=== PATIENT | female | born 1945 | race Caucasian/White ===

== ENCOUNTER 2017-06-23 | Inpatient (IN) | payer MEDICARE, BC, SELFPAY | END 2017-06-25 18:39 | disposition home or self-care (01) | DRG 375 | PROVIDERS: Admitting Provider Family Medicine; Family Provider Family Medicine; PCP Family Medicine; Visit Provider Family Medicine | DX: C18.7 Malignant neoplasm of sigmoid colon (principal); C78.02 Secondary malignant neoplasm of left lung; C78.7 Secondary malignant neoplasm of liver and intrahepatic bile duct; C78.01 Secondary malignant neoplasm of right lung; E11.9 Type 2 diabetes mellitus without complications; E87.6 Hypokalemia; D64.9 Anemia, unspecified | CPT/HCPCS: 36415; 71020; 74177; 80048; 80053; 82150; 82272; 82378; 82607; 82746; 83690; 85014; 85018; 85025; 86850; 86900; 86901; 86920; 86922; G0328; P9016; Q9967 ==

== ENCOUNTER → 2017-06-30 | Outpatient (POV) | payer MEDICARE, BC, SELFPAY | PROVIDERS: Family Provider Family Medicine; PCP Family Medicine; Visit Provider Internal Medicine | DX: C18.7 Malignant neoplasm of sigmoid colon (principal); C78.7 Secondary malignant neoplasm of liver and intrahepatic bile duct; C78.02 Secondary malignant neoplasm of left lung; C78.01 Secondary malignant neoplasm of right lung | CPT/HCPCS: 99204; 36415; 85025 ==

== ENCOUNTER → 2017-07-06 08:56 | Outpatient (CLI) | payer MEDICARE, BC, SELFPAY ==
[2017-07-06 09:21] LABS: Blood Urea Nitrogen 17 mg/dL (7-18); Creatinine,Serum 1.11 mg/dL (0.55-1.02); Estimated Glomerular Filt Rate 49 ml/min (>60); GFR (African American) 59 ML/MIN (>60)
--- NOTE | 2017-07-06 09:23 | CT_ITS ---
CT CHEST W CON CLINICAL INDICATION: Pulmonary metastasis, lung mass on chest x-ray, cancer of the colon ITS.REASON: COLON MASS PULMONARY METS LIVER METS ORDERING PHYSICIAN: Eduarda Palomo PATIENT AGE: 72 years TECHNIQUE: Axial images obtained with 75 mL's of Isovue-370. Sagittal and coronal reformatted images also generated and reviewed COMPARISON: Radiograph of 06/23/2017 FINDINGS: Right lobe of the thyroid gland is slightly enlarged and has heterogeneous density. There are enlarged mediastinal lymph nodes. Adenopathy in the right anterior paratracheal region measures up to 5.5 cm cephalad to caudad and 3.5 cm transverse and 3.2 cm AP. There is subcarinal adenopathy measuring up to 4.2 x 3.3 cm. Stippled calcifications are present within these enlarged nodes. There is right hilar adenopathy measuring up to 2.2 cm. There are multiple bilateral pulmonary masses/nodules with the largest mass in the right upper lobe posteriorly measuring 7.5 cm transverse, 5 cm AP, and 5.3 cm cephalad to caudad. There are innumerable bilateral pulmonary nodules in both upper and lower lobes. The largest nodule on the left is in the upper lobe posteriorly measuring up to 2.7 x 2.3 cm. No central obstructing endobronchial lesions are evident. No effusions. There is mild centrilobular emphysematous change. Coronary artery calcifications are noted.. There is compression upon the superior pulmonary vein on the right from hilar adenopathy Upper abdominal images demonstrates several masses within the right lobe of the liver largest of which measures 8.9 x 6.3 cm. No obvious bony lytic lesions are evident. IMPRESSION: 1. Multiple pulmonary and hepatic metastasis as detailed above. 2. Mediastinal and hilar adenopathy. 3. COPD/centrilobular emphysema with coronary artery disease
--- NOTE | 2017-07-06 10:03 | MR_ITS ---
MR head/brain wo/w con CLINICAL INDICATION: Evaluate for possible metastatic disease in this patient with colon cancer ORDERING PHYSICIAN: Eduarda Palomo PATIENT AGE: 72 years COMPARISON: 05/17/2013. TECHNIQUE: Standard pre and post enhanced multiplanar multiecho sequences are warm. FINDINGS: There is generalized atrophy. No midline shift, mass effect, intracranial hemorrhage or hydrocephalus. No edema. Scattered periventricular and subcortical T2 white matter hyperintensities are present consistent with ischemic gliotic change from microvascular disease. This has somewhat progressed compared to the previous exam. No evidence of acute infarction. No enhancing lesions. Upper cervical images show kyphosis at the C4-C5 level with bulging disc osteophyte complex causing impingement and contour deformity along the anterior aspect of the cervical cord. This may be better evaluated with MRI of the cervical spine if clinically warranted. The cerebellopontine angles, cerebellum, and brainstem are unremarkable. IMPRESSION: 1. No convincing evidence of metastatic disease. 2. Atrophy with chronic ischemic gliotic changes. 3. Bulging discs/osteophyte complex at C4-C5 causing impingement upon the cord anteriorly with kyphosis which may be better evaluated with dedicated MRI of the cervical spine if clinically warranted
== END ==
PROVIDERS: Family Provider Family Medicine; PCP Family Medicine; Visit Provider Nurse Practitioner
DX: C18.7 Malignant neoplasm of sigmoid colon (principal); C78.01 Secondary malignant neoplasm of right lung; C78.02 Secondary malignant neoplasm of left lung; Z03.89 Encounter for observation for other suspected diseases and conditions ruled out
CPT/HCPCS: 36415; 70553; 71260; 82565; 84520; A9576; Q9967

== ENCOUNTER → 2017-07-16 15:15 | Outpatient (CLI) | payer MEDICARE, BC, SELFPAY ==
--- OUTSIDE RECORDS SUMMARY | 2024-12-11 15:18 | XMS_ITS | Clinical Summary ---
Author Organization Healthcare Address [address] [place] [address] Care Team Providers Care Print Production Manager Name Role Phone Evaristo Ricketts Primary Care Provider [phone] Social History Tobacco Use Types Packs/Day Years Used Date Smoking Tobacco: Never Assessed Comments Unknown Sex and Gender Information Value Date Recorded Sex Assigned at Not on file Legal Sex Female 6:50 PM EDT Gender Identity Not on file Sexual Orientation Not on file Plan of Treatment Not on file Care Teams Print Production Manager Relationship Specialty Start Date End Date Evaristo Ricketts [place] [id number] PCP - General 11/15/20
--- OUTSIDE RECORDS SUMMARY | 2024-12-11 15:18 | XMS_ITS ---
Author Organization [facility] Care Team Providers Care Die Maker Bench Stamping Name Role Phone Silver Ricketts Unavailable Unavailable Allergies and adverse reactions No Known Allergies Care Team Name Role Address Phone Organization Dates Silver Ricketts PCP [address], [place], [address], [place] (Office): [facility] 01/13/2019 - 02/24/2019 Immunizations Immunization Status Vaccine Details Vaccine Code CodeSystem Date Notes Influenza completed Influenza, high-dose, split virus, quadrivalent, injectable, preservative free 197 CVX created date: 11/04/2018 administere d date: 04/04/2018 Pneumovax Dose 1 completed cre ated date: 11/04/2018 consent date: 11/04/2018 administere d date: 08/19/2016 TB 1 Step Mantoux (PPD) completed tuberculin skin test; unspecified formulation lotNumber: [id number] expiry: 05/24/2020 Mfg: sanofi pasteur Given 0.1 ml Right Forearm intradermally 98 CVX created date: 11/04/2018 consent date: 11/04/2018 administere d date: 11/04/2018 TB 2 Step Mantoux Skin Test completed tuberculin skin test; unspecified formulation Given 0.1 ml Right Forearm subcutaneously Step 1 of Multi-step 98 CVX created date: 11/13/2018 consent date: 11/13/2018 administere d date: 11/11/2018 Mental Status Section Date Assessment Total Score Description 02/09/2019 BIMS 15 cognitively int act CAM 0 No delirium ind icated PHQ-9 00 01/20/2019 BIMS 14 cognitively int act CAM 0 No delirium ind icated PHQ-9 02 minimal depress ion Problems Problem # Description Date of onset Resolved Date Code CodeSystem Concern Status 1 KLEBSIELLA PNEUMONIAE [K. PNEUMONIAE] THE CAUSE OF DISEASES CLASSIFIED ELSEWHERE 01/13/[address] active 2 UNSPECIFIED FRACTURE OF LEFT FEMUR, SUBSEQUENT ENCOUNTER FOR CLOSED FRACTURE WITH ROUTINE HEALING 01/13/[address] active 3 ACUTE KIDNEY FAILURE, UNSPECIFIED 11/04/[address] active 4 ADJUSTMENT DISORDER WITH DEPRESSED MOOD 11/04/[address] active 5 CARDIAC MURMUR, UNSPECIFIED 11/04/[address] active 6 DEHYDRATION 11/04/[address] active 7 DIFFICULTY IN WALKING, NOT ELSEWHERE CLASSIFIED 11/04/[address] active 8 DISORDER OF KIDNEY AND URETER, UNSPECIFIED 11/04/[address] active 9 DISSEMINATED MALIGNANT NEOPLASM, UNSPECIFIED 11/04/[address] active 10 DYSPHAGIA, ORAL PHASE 11/04/[address] active 11 ESSENTIAL (PRIMARY) HYPERTENSION 11/04/[address] active 12 GENERALIZED ANXIETY DISORDER 11/04/[address] active 13 MUSCLE WEAKNESS (GENERALIZED) 11/04/[address] active 14 NAUSEA 11/04/[address] active 15 PERSONAL HISTORY OF OTHER MALIGNANT NEOPLASM OF LARGE INTESTINE 11/04/[address] active 16 PNEUMONIA, UNSPECIFIED ORGANISM 11/04/[address] active 17 TYPE 2 DIABETES MELLITUS WITH HYPERGLYCEMIA 11/04/[address] active 18 UNSPECIFIED OPEN WOUND OF UNSPECIFIED BUTTOCK, INITIAL ENCOUNTER 11/04/[address] active 19 WEAKNESS 11/04/[address] active Reason for Referral No Reasons for Referral Entered Social History Social History Observation Description Start Date End Date Code Code System Current Smoking Status Ex-smoker Not available Not available 5561154 SNOMED CT Sex Assigned At Female 1945 39640-9 [facility] Gender Identity Vital Signs Code Code System Vitals Name Values and Units Timing Information 11639-8 [facility] Pain Level Value=0.0 02/24/2019 58335-3 [facility] O2 % dC Oximetry Value=91.0 Units= % 02/23/2019 9279-1 [facility] Respiratory Rate Value=24.0 Units=/m in 02/22/2019 8867-4 [facility] Heart rate Value=98.0 Units=/min 8462-4 [facility] Blood Pressure-Diastolic Value=66 Un its=mmHg 02/22/2019 8480-6 [facility] Blood Pressure-Systolic Pzlwx=421 Un its=mmHg 02/22/2019 8310-5 [facility] Body Temperature Value=97.5 Units= F 02/22/2019 22216-2 [facility] Weight Bbrpp=324.2 Units=Lbs 8302-2 [facility] Height Value=61.0 Units=Inches 11/04/2018
--- OUTSIDE RECORDS SUMMARY | 2024-12-11 15:21 | XMS_ITS ---
Author Organization [facility] Care Team Providers Care Hardening Machine Operator Helper Name Role Phone Silver Ricketts Unavailable Unavailable Allergies and adverse reactions No Known Allergies Care Team Name Role Address Phone Organization Dates Silver Ricketts PCP [address], [place], [address], [place] (Office): [facility] 01/13/2019 - 02/24/2019 Immunizations Immunization Status Vaccine Details Vaccine Code CodeSystem Date Notes Influenza completed Influenza, high-dose, split virus, quadrivalent, injectable, preservative free 197 CVX created date: 11/04/2018 administere d date: 04/04/2018 Pneumovax Dose 1 completed cre ated date: 11/04/2018 consent date: 11/04/2018 administere d date: 08/19/2016 TB 1 Step Mantoux (PPD) completed tuberculin skin test; unspecified formulation lotNumber: [id number] expiry: 05/24/2020 Mfg: sanofi pasteur Given 0.1 [...] THE CAUSE OF DISEASES CLASSIFIED ELSEWHERE 01/13/[address] active 2 UNSPECIFIED FRACTURE OF LEFT FEMUR, SUBSEQUENT ENCOUNTER FOR CLOSED FRACTURE WITH ROUTINE HEALING 01/13/[address] active 3 ACUTE KIDNEY FAILURE, UNSPECIFIED 11/04/[address] active 4 ADJUSTMENT DISORDER WITH DEPRESSED MOOD 11/04/[address] active 5 CARDIAC MURMUR, UNSPECIFIED 11/04/[address] active 6 DEHYDRATION 11/04/[address] active 7 DIFFICULTY IN WALKING, NOT ELSEWHERE CLASSIFIED 11/04/[address] active 8 DISORDER OF KIDNEY AND URETER, UNSPECIFIED 11/04/[address] active 9 DISSEMINATED MALIGNANT NEOPLASM, UNSPECIFIED 11/04/[address] active 10 DYSPHAGIA, ORAL PHASE 11/04/[address] active 11 ESSENTIAL (PRIMARY) HYPERTENSION 11/04/[address] active 12 GENERALIZED ANXIETY DISORDER 11/04/[address] active 13 MUSCLE WEAKNESS (GENERALIZED) 11/04/[address] active 14 NAUSEA 11/04/[address] active 15 PERSONAL HISTORY OF OTHER MALIGNANT NEOPLASM OF LARGE INTESTINE 11/04/[address] active 16 PNEUMONIA, UNSPECIFIED ORGANISM 11/04/[address] active 17 TYPE 2 DIABETES MELLITUS WITH HYPERGLYCEMIA 11/04/[address] active 18 UNSPECIFIED OPEN WOUND OF UNSPECIFIED BUTTOCK, INITIAL ENCOUNTER 11/04/[address] active 19 WEAKNESS 11/04/[address] active Reason for Referral No Reasons for Referral Entered Social History Social History Observation Description Start Date End Date Code Code System Current Smoking Status Ex-smoker Not available Not available 0106027 SNOMED CT Sex Assigned At Female 1945 38455-8 [facility] Gender Identity Vital Signs Code Code System Vitals Name Values and Units Timing Information 52200-4 [facility] Pain Level Value=0.0 02/24/2019 27731-2 [facility] O2 % dC Oximetry Value=91.0 Units= % 02/23/2019 9279-1 [facility] Respiratory Rate Value=24.0 Units=/m in 02/22/2019 8867-4 [facility] Heart rate Value=98.0 Units=/min 8462-4 [facility] Blood Pressure-Diastolic Value=66 Un its=mmHg 02/22/2019 8480-6 [facility] Blood Pressure-Systolic Veivt=932 Un its=mmHg 02/22/2019 8310-5 [facility] Body Temperature Value=97.5 Units= F 02/22/2019 67158-4 [facility] Weight Jerda=267.2 Units=Lbs 8302-2 [facility] Height Value=61.0 Units=Inches 11/04/2018
== END ==
PROVIDERS: PCP Obstetrics & Gynecology Gynecology; Visit Provider Internal Medicine
DX: Y99.9 Unspecified external cause status (principal)
CPT/HCPCS: J2405

== ENCOUNTER → 2017-07-20 10:07 | Outpatient (CLI) | payer MEDICARE, BC, SELFPAY ==
[2017-07-20 10:42] LABS: Activated Partial Thrombo Time 24.9 seconds (23.6-34.0); INR 1.05 (0.9-1.1); Prothrombin Time 11.3 seconds (9.4-11.8)
[2017-07-20 10:55] LABS: Basophils # 0.1 K/mm3 (0-0.2); Basophils % 0.3 % (0.1-2.0); Eosinophils # 0.1 K/mm3 (0.0-0.4); Eosinophils % 0.4 % (0.1-12.0); Hematocrit 31.2 % (37.0-47.0); Hemoglobin 9.6 g/dL (12.2-16.2); Lymphocytes # 1.6 K/mm3 (0.7-4.5); Lymphocytes % 9.2 K/mm3 (10-50); Mean Corpuscular HGB Conc 30.8 g/dL (31.8-35.4); Mean Corpuscular Hemoglobin 24.2 pg (27.0-31.2); Mean Corpuscular Volume 78.7 fl (81-99); Mean Platelet Volume 6.8 fl (7.4-10.4); Monocytes % 5.8 % (1.7-9.3); Neutrophils # 14.2 K/mm3 (1.8-7.8); Neutrophils % 84.2 % (37.0-80.0); Platelet Count 647 K/mm3 (142-424); Red Blood Count 3.96 M/mm3 (4.20-5.40); Red Cell Distribution Width 18.8 % (11.5-17.5); White Blood Count 16.9 K/mm3 (4.8-10.8)
[2017-07-20 11:26] LABS: MANUAL DIFFERENTIAL MANUAL DIFFERENTIAL (MANUAL DIFF)
[2017-07-20 12:03] LABS: Lymphocytes % 7 % (10-50); Microcytosis 1+; Monocytes % 12 % (2-9); Neutrophils % 81 % (42-76); Platelet Estimate Moderate Increase; Total Cells Counted 100
[2017-07-20 12:33] LABS: Blood Urea Nitrogen 24 mg/dL (7-18); Creatinine,Serum 0.86 mg/dL (0.55-1.02); Estimated Glomerular Filt Rate 65 ml/min (>60); GFR (African American) 79 ML/MIN (>60)
== END ==
PROVIDERS: PCP Family Medicine; Visit Provider Nurse Practitioner
DX: R91.1 Solitary pulmonary nodule (principal); C18.9 Malignant neoplasm of colon, unspecified; D37.6 Neoplasm of uncertain behavior of liver, gallbladder and bile ducts; Z79.82 Long term (current) use of aspirin; Z79.899 Other long term (current) drug therapy; Z51.81 Encounter for therapeutic drug level monitoring
CPT/HCPCS: 36415; 82565; 84520; 85007; 85025; 85610; 85730; 93005

== ENCOUNTER 2017-07-27 06:02 | Day surgery (SDC) | payer MEDICARE, BC, SELFPAY ==
[2017-07-26 14:04] VITALS: BMI 21.9
[2017-07-27] VITALS (14 sets, daily range): BP systolic 93–125; BP diastolic 51–72; PULSE 74–104; RESP 15–21; TEMP 36.1–36.6; O2SAT 90–98
--- NOTE | 2017-07-27 07:07 | P.PN_ITS ---
[facility] Anesthesia Checklist - Patient Identification Patient Identification: Arm Band, Verbal (Name & ) - Structural Data Admitted From: Home Planned Operative Procedure/s: vasc. access port Consent for Planned Operative Procedure(s) Verified: Yes Verified Documents: Surgical Consent - NPO Status Verified Time NPO: 00:00 - Additional verifications Patient : No Anesthesia Reactions: No Hx Blood Transfusions: No Blood Transfusion Reaction: No Cephalosporin Allergy: No Previous Colonoscopy: No - Cardiovascular Assessment Heart Sounds: S1 & S2 Pulse Strength: Strong Pulse Rhythm: Regular Peripheral Edema: No - Airway Assessment C-Spine Mobility Assessed: Yes TMJ Mobility Assessed: Yes Dentition: Good Dentition - Neurological Assessment Level of Consciousness: Awake, Alert, Appropriate Hx Seizures: No Numbness or tingling in extremities: No - Anesthesia Plan Anesthesia Risk discussed: Yes Anesthesia Plan: Verified ASA Class: III Anesthesia Type: MAC [facility] Anesthesia HX I have reviewed the patient's past medical history: Yes Medical History: Reports:: Anxiety, Asthma, Cancer (COLON), Depression, Diabetes Mellitus Type 2 (NIDDM), Hypertension Denies:: Diabetes Mellitus Type 1, MRSA, Seizures Other Medical History: Reports: Anemia, Arthritis, Sinus Problems. Denies: Blood Transfusion Reaction Other Surgeries: Yes: Hysterectomy-Total, Tubal Ligation Amputation: No Fractures: No *Family Hx:: Cancer, Heart Attack, Thyroid Disorder
[2017-07-27 07:08] LABS: POC Glucose,Bedside 124 mg/dL
--- NOTE | 2017-07-27 08:23 | HMH.OPNOTE ---
Date of procedure: 07/27/17 Pre-op Diagnosis:: Metastatic colon cancer Post-op diagnosis:: same Procedure performed:: Port-A-Cath placement Surgeon:: Manny Resendiz MD Licensed Journeyman Electrician(s):: Betty Blevins EXECUTIVE PERSONAL ASSISTANT:: Kush Roy Anesthesia: LMA Estimated blood loss (mL): 10 Operative findings:: Fluoroscopy utilized to confirm placement. Port easily flushed. Operative note:: After informed consent was obtained, the patient was taken to the operating room and placed in the supine position. General anesthesia with laryngeal mask airway was achieved. The patient's left chest and neck were prepped and draped in a sterile fashion. After infiltration with local anesthetic a large bore needle was utilized to access the left subclavian vein. A guidewire was placed in position utilizing fluoroscopy. A dilator with external sheath was placed over the guidewire. The dilator and guidewire were removed. The port catheter was placed through the sheath and confirmed with fluoroscopy. The catheter was cut to appropriate length and secured to the hub. The hub was secured to the underlying fascia with interrupted Prolene. The deep subcutaneous tissue was reapproximated with interrupted Vicryl and skin was closed with 4-0 Monocryl. Steri-Strips were applied. The catheter was easily flushed initially with saline and then with 4 mL of heparinized saline. A smaller amount of heparinized saline was utilized secondary to the fact that the port was left accessed for later use today. The patient was transferred to recovery in stable condition. Chest x-ray is pending. Pathology: none sent Condition: stable Disposition: PACU Complications:: No immediate
--- NOTE | 2017-07-27 08:26 | P.OP_ITS ---
Date of procedure: 07/27/17 Pre-op Diagnosis:: Metastatic colon cancer Post-op diagnosis:: same Procedure performed:: Port-A-Cath placement Surgeon:: Manny Resendiz MD Aluminum Welder(s):: Betty Blevins RETAIL SALES DIRECTOR:: Kush Roy Anesthesia: LMA Estimated blood loss (mL): 10 Operative findings:: Fluoroscopy utilized to confirm placement. Port easily flushed. Operative note:: After informed consent was obtained, the patient was taken to the operating room and placed in the supine position. General anesthesia with laryngeal mask airway was achieved. The patient's left chest and neck were prepped and draped in a sterile fashion. After infiltration with local anesthetic a large bore needle was utilized to access the left subclavian vein. A guidewire was placed in position utilizing fluoroscopy. A dilator with external sheath was placed over the guidewire. The dilator and guidewire were removed. The port catheter was placed through the sheath and confirmed with fluoroscopy. The catheter was cut to appropriate length and secured to the hub. The hub was secured to the underlying fascia with interrupted Prolene. The deep subcutaneous tissue was reapproximated with interrupted Vicryl and skin was closed with 4-0 Monocryl. Steri-Strips were applied. The catheter was easily flushed initially with saline and then with 4 mL of heparinized saline. A smaller amount of heparinized saline was utilized secondary to the fact that the port was left accessed for later use today. The patient was transferred to recovery in stable condition. Chest x-ray is pending. Pathology: none sent Condition: stable Disposition: PACU Complications:: No immediate
--- NOTE | 2017-07-27 08:36 | P.PN_ITS ---
[facility] Anesthesia Record Part I Intake, IV Amount: 1,300 Estimated blood loss (mL): 10 Urine output (mL): 0 Blood Pressure: 105/61 SaO2: 95 Pulse Rate: 98 Respiratory Rate: 16 Temperature: 97 F Patient is:: Drowsy, Nasal O2, Stable Stable to PACU at:: 08:30
--- NOTE | 2017-07-27 08:36 | HMH.ANESII ---
[facility] Anesthesia Record Part II Discharge Time: 09:00 Destination: [facility] PACU nurse assessment reviewed?: Yes Patient Condition:: Good Anesthesia Complications:: None
--- NOTE | 2017-07-27 08:37 | P.PN_ITS ---
[facility] Anesthesia Record Part II Discharge Time: 09:00 Destination: [facility] PACU nurse assessment reviewed?: Yes Patient Condition:: Good Anesthesia Complications:: None
--- NOTE | 2017-07-27 09:19 | FL_ITS ---
FL GUIDED CENTRAL LINE PLACEMENT HISTORY: Port placement ITS.REASON: PORT ORDERING PHYSICIAN: Manny Resendiz MD PATIENT AGE: 72 years COMPARISON: 07/01/2017 FINDINGS: Single image submitted with the C-arm shows left subclavian Mediport placement with the tip in the region superior vena cava. IMPRESSION: Status post port placement with fluoroscopy guidance. Fluoroscopy time: 26 seconds
--- NOTE | 2017-07-27 09:20 | XR_ITS ---
XR chest portable HISTORY: Follow-up Port-A-Cath placement ITS.REASON: PORT ORDERING PHYSICIAN: Manny Resendiz MD PATIENT AGE: 72 years COMPARISON: 06/23/2017 FINDINGS: Left subclavian Port-A-Cath has been placed with the tip in good position in the region of the superior vena cava. No evidence of pneumothorax. Bilateral pulmonary masses once again noted largest in the right upper lobe measuring 7.8 x 6.6 cm. IMPRESSION: Port-A-Cath in good position without evidence of pneumothorax. No change pulmonary metastases
--- NOTE | 2017-07-27 10:45 | CT_ITS ---
CT biopsy guided needle, CT chest wo con CLINICAL INDICATION: ITS.REASON: LUNG AND LIVER METS, multiple pulmonary nodules. Tissue confirmation desired by clinician ORDERING PHYSICIAN: Manny Resendiz MD PATIENT AGE: 72 years COMPARISON: 07/06/[address]: Prebiopsy chest CT once again confirms multiple bilateral pulmonary nodules/masses with the largest mass in the right upper lobe measuring 8 x 5 cm. Mediastinal and hilar adenopathy also noted overall no significant change compared to the previous. This CT was performed for biopsy planning. TECHNIQUE: Following obtaining informed consent aseptic conditions and local anesthesia with 1% buffered lidocaine, a 22-gauge spinal needle was inserted at the periphery of the mass via the right axillary approach which was closest approach without traversing lung tissue. Fine-needle aspiration was performed of the mass x3 and specimen given to the pathologist. Pathologist did confirm the tissue specimen to be adequate. There were no immediate complications. Postbiopsy images showed no evidence of pneumothorax or hematoma. The patient tolerated the procedure well without evidence of immediate complication. 3 hour delayed chest x-ray also shows no evidence of pneumothorax. Cytology: Malignant. IMPRESSION: Uneventful CT-guided needle aspiration right upper lobe mass. No immediate complications. Cytology positive for malignancy consistent with metastatic colorectal adenocarcinoma
--- NOTE | 2017-07-27 14:53 | SUR.PHASEII ---
Patient was discharged from post op and transferred to ct for right lung mass biopsy. IV will be taken out after CT.Patient stable.
--- NOTE | 2017-07-27 15:00 | XR_ITS ---
XR chest 2V HISTORY: Follow-up lung biopsy, evaluate for pneumothorax, metastatic disease ITS.REASON: pa/lat expiration. r/o pneumothorax at 1500. ORDERING PHYSICIAN: Manny Resendiz MD PATIENT AGE: 72 years COMPARISON: Previous exam from the same day FINDINGS: There is no evidence of pneumothorax. Multiple pulmonary masses/nodules once again noted unchanged. Mediport catheter is in place but the left subclavian approach. IMPRESSION: No evidence of pneumothorax. No change in multiple pulmonary masses consistent with metastasis.
== END 2017-07-27 10:50 ==
LOC: OR 10:37 → RAD 12:05
PROVIDERS: Family Provider Family Medicine; PCP Family Medicine; Visit Provider Surgery
DX: C18.9 Malignant neoplasm of colon, unspecified (principal); Z45.2 Encounter for adjustment and management of vascular access device
CPT/HCPCS: 36571; 71045; 71046; 71250; 76001; 77001; 77012; 82962; 88173; 88305; 88342; 96374; C1788; J1642; J2405

== ENCOUNTER 2017-07-28 10:15 | Outpatient (CLI) | payer MEDICARE, BC, SELFPAY ==
[2017-07-28] VITALS (15 sets, daily range): BP systolic 98–137; BP diastolic 52–79; PULSE 97–118; RESP 18–20; TEMP 37.2; O2SAT 95; BMI 21.9
[2017-07-28 10:31] LABS: Microscopic, Urine URINE MICROSCOPIC (MICROSCOPIC)
[2017-07-28 10:43] LABS: Appearance,Urine CLEAR (Clear); Bilirubin,Urine Negative (Negative); Blood, Urine Negative (Negative); Color,Urine YELLOW (Yellow); Glucose,Urine (UA) Negative (Negative); Ketones,Urine Negative (Negative); Leukocyte Esterase,Urine TRACE (Negative); Nitrate,Urine Negative (Negative); Protein,Urine Negative (Negative); Specific Gravity, Urine 1.015 (1.005-1.030)
[2017-07-28 10:59] LABS: Bacteria,Urine 1+ /lpf; WBC,Urine Occasional #/hpf (0-3)
== END 2017-07-28 16:00 | disposition home or self-care (01) ==
LOC: INF 10:22
PROVIDERS: Family Provider Family Medicine; PCP Family Medicine; Visit Provider Internal Medicine
DX: C18.7 Malignant neoplasm of sigmoid colon (principal); C78.7 Secondary malignant neoplasm of liver and intrahepatic bile duct; C78.00 Secondary malignant neoplasm of unspecified lung; Z51.11 Encounter for antineoplastic chemotherapy
CPT/HCPCS: 81001; 96365; 96413; 96415; 96417; J9035; J9206; Q0166

== ENCOUNTER 2017-08-09 08:10 | Outpatient (CLI) | payer MEDICARE, BC, SELFPAY ==
[2017-08-09] VITALS (12 sets, daily range): BP systolic 84–113; BP diastolic 44–67; PULSE 77–99; RESP 16–18; TEMP 36.4–36.8; BMI 21.9
[2017-08-09 08:45] LABS: Microscopic, Urine URINE MICROSCOPIC (MICROSCOPIC)
[2017-08-09 08:49] LABS: Appearance,Urine CLOUDY (Clear); Basophils % 0.3 % (0.1-2.0); Bilirubin,Urine Negative (Negative); Blood, Urine TRACE-L (Negative); Color,Urine YELLOW (Yellow); Eosinophils # 0.2 K/mm3 (0.0-0.4); Eosinophils % 1.2 % (0.1-12.0); Glucose,Urine (UA) Negative (Negative); Hematocrit 30.2 % (37.0-47.0); Hemoglobin 9.2 g/dL (12.2-16.2); Ketones,Urine Negative (Negative); Leukocyte Esterase,Urine TRACE (Negative); Lymphocytes # 1.8 K/mm3 (0.7-4.5); Lymphocytes % 13.6 K/mm3 (10-50); Mean Corpuscular HGB Conc 30.4 g/dL (31.8-35.4); Mean Corpuscular Hemoglobin 24.7 pg (27.0-31.2); Mean Platelet Volume 6.5 fl (7.4-10.4); Monocytes # 0.6 K/mm3 (0.1-1.0); Monocytes % 4.4 % (1.7-9.3); Neutrophils # 10.5 K/mm3 (1.8-7.8); Neutrophils % 80.5 % (37.0-80.0); Nitrate,Urine POSITIVE (Negative); Platelet Count 954 K/mm3 (142-424); Protein,Urine Negative (Negative); Red Blood Count 3.73 M/mm3 (4.20-5.40); Red Cell Distribution Width 20.6 % (11.5-17.5)
[2017-08-09 09:00] LABS: Alanine Aminotransferase 43 U/L (12-78); Albumin Level 2.4 gm/dL (3.4-5.0); Albumin/Globulin Ratio 0.5 (1.1-1.8); Alkaline Phosphatase 115 U/L (46-116); Anion Gap 13.8 mEq/L (5-15); Aspartate Amino Transferase 46 U/L (15-37); Bilirubin,Total 0.4 mg/dL (0.2-1.0); Blood Urea Nitrogen 15 mg/dL (7-18); Carbon Dioxide 24 mmol/L (21.0-32.0); Chloride 96 mmol/L (98-107); Creatinine Clearance Estimated 45 mL/min (0-300); Creatinine,Serum 0.84 mg/dL (0.55-1.02); Estimated Glomerular Filt Rate 67 ml/min (>60); GFR (African American) 81 ML/MIN (>60); Glucose 132 mg/dL (74-106); Potassium 3.8 mmoL/L (3.5-5.1); Sodium 130 mmol/L (136-145); Total Protein,Serum 7.4 gm/dL (6.4-8.2)
[2017-08-09 09:01] LABS: Amorphous Sediment,Urine 1+ /lpf; Bacteria,Urine 4+ /lpf; RBC,Urine Occasional #/hpf (0-3)
--- NOTE | 2017-08-09 10:25 | PC.NURSE ---
0950 - NS INFUSION STARTED AT THIS TIME.
--- NOTE | 2017-08-09 10:27 | PC.NURSE ---
1020 - NS STILL INFUSING AT THIS TIME.
--- NOTE | 2017-08-09 16:42 | PC.NURSE ---
TOTAL VOLUME INCLUDES NS, AVASTIN, AND IRINOTECAN.
== END 2017-08-09 14:45 | disposition home or self-care (01) ==
LOC: INF 08:10
PROVIDERS: Family Provider Family Medicine; PCP Family Medicine; Visit Provider Internal Medicine
DX: Z51.11 Encounter for antineoplastic chemotherapy (principal); C18.7 Malignant neoplasm of sigmoid colon; C78.7 Secondary malignant neoplasm of liver and intrahepatic bile duct; C78.00 Secondary malignant neoplasm of unspecified lung; R82.90 Unspecified abnormal findings in urine
CPT/HCPCS: 80053; 81001; 85025; 87086; 96413; 96417; J9035; J9206; Q0166

== ENCOUNTER 2017-08-11 10:10 | Outpatient (CLI) | payer MEDICARE, BC, SELFPAY ==
[2017-08-11 10:19] VITALS: BP 109/68; PULSE 66; RESP 20; TEMP 36.4; O2SAT 96
[2017-08-11 10:25] VITALS: BP 110/70; PULSE 66; RESP 20; TEMP 36.4; O2SAT 96
[2017-08-11 11:32] VITALS: BP 110/65; PULSE 68; RESP 20; TEMP 36.7; O2SAT 96
[2017-08-11 11:45] VITALS: BP 109/62; PULSE 66; RESP 20; TEMP 36.7; O2SAT 96
== END 2017-08-11 11:50 | disposition home or self-care (01) ==
LOC: INF 10:10
PROVIDERS: Family Provider Family Medicine; PCP Family Medicine; Visit Provider Internal Medicine
DX: C18.7 Malignant neoplasm of sigmoid colon (principal); C78.00 Secondary malignant neoplasm of unspecified lung; C78.7 Secondary malignant neoplasm of liver and intrahepatic bile duct
CPT/HCPCS: 96365; J1642

== ENCOUNTER 2017-08-13 12:00 | Outpatient (CLI) | payer MEDICARE, BC, SELFPAY ==
[2017-08-13 12:15] VITALS: BP 97/58; PULSE 104; RESP 18; TEMP 36.6
[2017-08-13 12:45] VITALS: BP 101/53; PULSE 92; RESP 18
[2017-08-13 13:15] VITALS: BP 110/48; PULSE 87; RESP 16
== END 2017-08-13 13:35 | disposition home or self-care (01) ==
LOC: INF 12:19
PROVIDERS: Family Provider Family Medicine; PCP Family Medicine; Visit Provider Internal Medicine
DX: C18.6 Malignant neoplasm of descending colon (principal)
CPT/HCPCS: 96360; J1642

== ENCOUNTER → 2017-08-18 09:15 | Outpatient (CLI) | payer MEDICARE, BC, SELFPAY ==
[2017-08-18 09:42] VITALS: BP 102/58; PULSE 112; RESP 18
[2017-08-18 10:12] VITALS: BP 108/55; PULSE 104; RESP 18
[2017-08-18 10:42] VITALS: BP 106/53; PULSE 100; RESP 16
== END ==
PROVIDERS: Visit Provider Internal Medicine
DX: C18.7 Malignant neoplasm of sigmoid colon (principal); C78.00 Secondary malignant neoplasm of unspecified lung; C78.7 Secondary malignant neoplasm of liver and intrahepatic bile duct; E11.8 Type 2 diabetes mellitus with unspecified complications
CPT/HCPCS: J1642

== ENCOUNTER 2017-08-20 11:00 | Outpatient (CLI) | payer MEDICARE, BC, SELFPAY ==
[2017-08-20 11:10] VITALS: BP 122/70; PULSE 68; RESP 20; TEMP 36.6; O2SAT 96
[2017-08-20 11:35] VITALS: BP 122/70; PULSE 68; RESP 20; TEMP 36.3; O2SAT 96
[2017-08-20 12:10] VITALS: BP 122/70; PULSE 68; RESP 20; TEMP 36.7; O2SAT 96
[2017-08-20 12:20] VITALS: BP 122/68; PULSE 62; RESP 20; TEMP 36.3; O2SAT 96
== END 2017-08-20 12:25 | disposition home or self-care (01) ==
LOC: INF 11:05
PROVIDERS: Family Provider Family Medicine; Visit Provider Internal Medicine
DX: C18.7 Malignant neoplasm of sigmoid colon (principal); C78.00 Secondary malignant neoplasm of unspecified lung; C78.7 Secondary malignant neoplasm of liver and intrahepatic bile duct; E11.8 Type 2 diabetes mellitus with unspecified complications
CPT/HCPCS: J1642

== ENCOUNTER → 2017-08-23 13:00 | Outpatient (CLI) | payer MEDICARE, BC, SELFPAY ==
[2017-08-23 13:20] VITALS: BP 111/72; PULSE 94; RESP 18; TEMP 36.3; O2SAT 95
[2017-08-23 13:45] VITALS: BP 108/64; PULSE 88; RESP 18; O2SAT 96
[2017-08-23 14:25] VITALS: BP 104/59; PULSE 88; RESP 18; TEMP 36.6; O2SAT 97
--- NOTE | 2017-08-23 17:55 | PC.NURSE ---
08/23/17 1425 L portacath left accessed for pt discharge home. Pt returns 3 times per week for infusions. Site clear. Dressing CDI.
== END ==
PROVIDERS: Family Provider Family Medicine; Visit Provider Internal Medicine
DX: C18.7 Malignant neoplasm of sigmoid colon (principal); C78.00 Secondary malignant neoplasm of unspecified lung; C78.7 Secondary malignant neoplasm of liver and intrahepatic bile duct; E11.8 Type 2 diabetes mellitus with unspecified complications
CPT/HCPCS: J1642

== ENCOUNTER 2017-08-25 10:00 | Outpatient (CLI) | payer MEDICARE, BC, SELFPAY ==
[2017-08-25] VITALS (13 sets, daily range): BP systolic 86–117; BP diastolic 48–65; PULSE 73–100; RESP 16–18; TEMP 36.9–37; BMI 19.9
[2017-08-25 10:58] LABS: Basophils # 0.1 K/mm3 (0-0.2); Basophils % 0.6 % (0.1-2.0); Eosinophils # 0.1 K/mm3 (0.0-0.4); Eosinophils % 0.9 % (0.1-12.0); Hematocrit 34.1 % (37.0-47.0); Hemoglobin 10.2 g/dL (12.2-16.2); Lymphocytes # 2.9 K/mm3 (0.7-4.5); Lymphocytes % 19.1 K/mm3 (10-50); Mean Corpuscular HGB Conc 30.1 g/dL (31.8-35.4); Mean Corpuscular Hemoglobin 25.5 pg (27.0-31.2); Mean Corpuscular Volume 84.9 fl (81-99); Mean Platelet Volume 6.6 fl (7.4-10.4); Monocytes # 1.1 K/mm3 (0.1-1.0); Monocytes % 7.7 % (1.7-9.3); Neutrophils # 10.7 K/mm3 (1.8-7.8); Neutrophils % 71.7 % (37.0-80.0); Platelet Count 793 K/mm3 (142-424); Red Blood Count 4.01 M/mm3 (4.20-5.40); Red Cell Distribution Width 23.5 % (11.5-17.5); White Blood Count 14.9 K/mm3 (4.8-10.8)
[2017-08-25 11:08] LABS: Alanine Aminotransferase 29 U/L (12-78); Albumin Level 2.6 gm/dL (3.4-5.0); Albumin/Globulin Ratio 0.5 (1.1-1.8); Alkaline Phosphatase 104 U/L (46-116); Anion Gap 17.5 mEq/L (5-15); Aspartate Amino Transferase 18 U/L (15-37); Bilirubin,Total 0.3 mg/dL (0.2-1.0); Blood Urea Nitrogen 13 mg/dL (7-18); Calcium 9.3 mg/dL (8.5-10.1); Carbon Dioxide 24 mmol/L (21.0-32.0); Chloride 98 mmol/L (98-107); Creatinine Clearance Estimated 41 mL/min (0-300); Creatinine,Serum 0.91 mg/dL (0.55-1.02); Estimated Glomerular Filt Rate 61 ml/min (>60); GFR (African American) 74 ML/MIN (>60); Globulin 4.8 gm/dl (1.3-3.2); Glucose 108 mg/dL (74-106); Potassium 4.5 mmoL/L (3.5-5.1); Sodium 135 mmol/L (136-145); Total Protein,Serum 7.4 gm/dL (6.4-8.2)
[2017-08-25 11:56] LABS: Microscopic, Urine URINE MICROSCOPIC (MICROSCOPIC)
[2017-08-25 11:59] LABS: Appearance,Urine SL CLOUDY (Clear); Bilirubin,Urine Negative (Negative); Blood, Urine TRACE-I (Negative); Color,Urine YELLOW (Yellow); Glucose,Urine (UA) Negative (Negative); Ketones,Urine Negative (Negative); Leukocyte Esterase,Urine Negative (Negative); Nitrate,Urine POSITIVE (Negative); PH,Urine 7.5 (5.0-8.5); Protein,Urine Negative (Negative); Urobilinogen,Urine 0.2 EU/dl (0.2)
[2017-08-25 12:17] LABS: Amorphous Sediment,Urine 2+ /lpf; Bacteria,Urine 3+ /lpf
--- NOTE | 2017-08-25 16:26 | PC.NURSE ---
1335 - PREMEDICATED WITH KYTRIL 2MG PO PRIOR TO IRINOTECAN INFUSION.
== END 2017-08-25 16:00 | disposition home or self-care (01) ==
LOC: INF 10:31
PROVIDERS: Family Provider Family Medicine; Visit Provider Internal Medicine
DX: C18.9 Malignant neoplasm of colon, unspecified (principal); R82.90 Unspecified abnormal findings in urine
CPT/HCPCS: 80053; 81001; 85025; 87086; 87088; 87186; 96413; 96415; 96417; J9035; J9206; Q0166

== ENCOUNTER 2017-08-27 10:30 | Outpatient (CLI) | payer MEDICARE, BC, SELFPAY ==
[2017-08-27 10:40] VITALS: BP 109/61; PULSE 103; RESP 18; TEMP 36.6; O2SAT 96
[2017-08-27 11:15] VITALS: BP 103/51; PULSE 84; RESP 18; O2SAT 96
[2017-08-27 11:45] VITALS: BP 102/62; PULSE 81; RESP 18; TEMP 36.5; O2SAT 97
== END 2017-08-27 11:50 | disposition home or self-care (01) ==
LOC: INF 10:33
PROVIDERS: Family Provider Family Medicine; Visit Provider Internal Medicine
DX: C18.9 Malignant neoplasm of colon, unspecified (principal); Z45.2 Encounter for adjustment and management of vascular access device
CPT/HCPCS: J1642

== ENCOUNTER 2017-08-30 11:03 | Outpatient (CLI) | payer MEDICARE, BC, SELFPAY ==
[2017-08-30 11:25] VITALS: BP 121/58; PULSE 82; RESP 16; TEMP 36.6; O2SAT 96
[2017-08-30 11:55] VITALS: BP 112/54; PULSE 78; RESP 18; O2SAT 95
[2017-08-30 12:25] VITALS: BP 108/64; PULSE 72; RESP 16; TEMP 36.6; O2SAT 96
[2017-08-30 12:45] VITALS: BP 120/64; PULSE 84; RESP 18; TEMP 36.6; O2SAT 95
--- NOTE | 2017-08-30 17:10 | PC.NURSE ---
08/30/17 1245 L portacath left accessed for pt discharge home. Pt returns on wed and wed for IVF. Sterile occlusive dressing intact. port flushes easily with good blood return. Flushed with saline/heparin instilled
== END 2017-08-30 12:45 | disposition home or self-care (01) ==
LOC: INF 11:47
PROVIDERS: Family Provider Family Medicine; Visit Provider Internal Medicine
DX: Z45.2 Encounter for adjustment and management of vascular access device (principal)
CPT/HCPCS: J1642

== ENCOUNTER 2017-09-01 08:20 | Outpatient (CLI) | payer MEDICARE, BC, SELFPAY ==
[2017-09-01 08:30] VITALS: BP 106/63; PULSE 83; RESP 18; TEMP 36.9; O2SAT 97
[2017-09-01 09:00] VITALS: BP 125/83; PULSE 87; RESP 18
[2017-09-01 09:30] VITALS: BP 116/67; PULSE 87; RESP 18
[2017-09-01 09:50] VITALS: BP 125/66; PULSE 86; RESP 18
== END 2017-09-01 09:50 | disposition home or self-care (01) ==
LOC: INF 08:23
PROVIDERS: Family Provider Family Medicine; Visit Provider Internal Medicine
DX: C18.9 Malignant neoplasm of colon, unspecified (principal)
CPT/HCPCS: 96360; J1642

== ENCOUNTER 2017-09-01 16:43 | Emergency (ER) | payer MEDICARE, BC, SELFPAY ==
[2017-09-01 16:46] VITALS: BP 123/60; PULSE 95; RESP 20; TEMP 37.3; O2SAT 98; BMI 20.5
[2017-09-01 17:20] LABS: Microscopic, Urine URINE MICROSCOPIC (MICROSCOPIC)
[2017-09-01 17:21] LABS: Appearance,Urine CLEAR (Clear); Bilirubin,Urine Negative (Negative); Blood, Urine 3+ (Negative); Color,Urine YELLOW (Yellow); Glucose,Urine (UA) Negative (Negative); Ketones,Urine Negative (Negative); Leukocyte Esterase,Urine 2+ (Negative); Nitrate,Urine POSITIVE (Negative); PH,Urine 7.5 (5.0-8.5); Protein,Urine 2+ (Negative)
[2017-09-01 17:54] LABS: Bacteria,Urine 3+ /lpf; Squamous Epithelial Cell,Urine Occasional #/hpf (0-5)
--- NOTE | 2017-09-01 18:24 | HMH.EDGENADL ---
ED Disposition Clinical Impression: Cystitis Disposition: Home, Self-Care Condition on Discharge: Good Instructions: DI for Urinary Tract Infection (UTI) Additional Instructions: Additional instructions for URINARY TRACT INFECTION: See your physician as soon as possible for further evaluation. Follow-up culture results in 2 days. Return immediately if you have an uncontrollable fever greater than 102 degrees, severe back or abdominal pain, inability to urinate, or repetetive vomiting. Prescriptions: Ciprofloxacin HCl [Ciprofloxacin 500mg Tab] 500 mg PO BID #20 tab Referrals: Kymberly Ricketts MD [Primary Care Provider] - - Critical Care Critical Care Time: No Attestation: On 09/01/17, the high probability of a clinically significant, sudden or life threatening deterioration of the following system(s) required my full and direct attention, intervention and personal management. The time I documented below is in addition to time spent performing reported procedures but includes the following listed in this critical care notation. Medical Decision Making Vital Signs: 09/01/17 16:46 Temperature 99.1 F Temperature Source Oral Pulse Rate [Right Radial] 95 H Respiratory Rate 20 Blood Pressure [Right Arm] 123/60 Blood Pressure Mean [Right Arm] 81 Blood Pressure Source [Right Arm] Automatic Cuff Blood Pressure Position [Right Arm] Sitting 02 Sat by Pulse Oximetry 98 Oxygen Delivery Method Room Air - Lab Data Lab Results 09/01/17 16:55: Urine Color Yellow, Urine Appearance Clear, Urine pH 7.5, Ur Specific [place] 1.020, Urine Protein 2+, Urine Glucose (UA) Negative, Urine Ketones Negative, Urine Blood 3+, Urine Nitrate Positive, Urine Bilirubin Negative, Urine Urobilinogen 2.0, Ur Leukocyte Esterase 2+ A, Urine RBC 3-5, Urine WBC 10-20, Ur Squamous Epith Cells Occasional, Urine Bacteria 3+ Orders (Tests/Meds): ORDERS Category Date Time Status Urine Culture Stat Micro 09/01/17 16:55 Received - Geovani Inquiry Pt receiving controlled substance: No General Adult HPI - General Chief complaint: Urogenital-Female Stated complaint: Passing Blood in Urine Mode of Arrival: Ambulatory Limitations: No Limitations Description of Symptoms (Recalled from ER Triage Doc. by RN): pt has been noticing for approx a week when she urinates when she wipes it was a dark color , yesterday she started having blood on her toilet paper when she wipes , she is sure its coming when she urinates!! pt has a hx of colon ca has been on chemo since july - History of Present Illness HPI narrative: The patient one episode of hematuria today. She has had some intermittent pressure in her suprapubic area, some intermittent dysuria for a few days. Denies back or flank pain. Denies fever or vomiting. Occasional brownish discharge when she wipes for several days. - Related Data Home Medications Medication Instructions Recorded Confirmed calcium carbonate 500 mg calcium 500 mg PO BID tab 07/06/17 09/01/17 (1,250 mg) tablet potassium 99 mg tablet 10 meq PO QDAY 07/06/17 09/01/17 ramipril 1.25 mg capsule 2.5 mg PO HS 07/06/17 09/01/17 vitamin B12 0.5 mg-folic acid 1 mg 1 tab PO QDAY 07/06/17 09/01/17 tablet Aspirin [Aspirin 81mg EC Tab] 81 mg PO DAILY 07/27/17 09/01/17 Triamterene/Hydrochlorothiazid 0.5 each PO DAILY 07/27/17 09/01/17 [Dyazide 37.5-25 Capsule] Capecitabine [Xeloda] 1,500 mg PO BID 08/09/17 09/01/17 Mirtazapine [Remeron 15mg tablet] 15 mg PO HS 08/09/17 09/01/17 Metformin HCl [Metformin 500mg 500 mg PO DAILY 08/27/17 09/01/17 Tablet] Previous Rx's Medication Instructions Recorded Ciprofloxacin HCl [Ciprofloxacin 500 mg PO BID #20 tab 09/01/17 500mg Tab] Allergies Allergy/AdvReac Type Severity Reaction Status Date / Time No Known Allergies Allergy Verified 08/18/17 08:46 [facility] History I have reviewed the patient's past medical history: Yes Medical History: Re
[2017-09-01 18:58] VITALS: BP 132/80; PULSE 80; RESP 18; TEMP 36.8; O2SAT 98
== END 2017-09-01 18:58 | disposition home or self-care (01) ==
PROVIDERS: Emergency Provider Emergency Medicine; Family Provider Family Medicine; PCP Family Medicine
DX: N30.01 Acute cystitis with hematuria (principal); E11.9 Type 2 diabetes mellitus without complications; I10 Essential (primary) hypertension; C18.9 Malignant neoplasm of colon, unspecified; Z79.82 Long term (current) use of aspirin; Z79.899 Other long term (current) drug therapy; Z79.84 Long term (current) use of oral hypoglycemic drugs; Z87.891 Personal history of nicotine dependence
CPT/HCPCS: 81001; 87086; 96360; 99282; J1642

== ENCOUNTER 2017-09-03 10:30 | Outpatient (CLI) | payer MEDICARE, BC, SELFPAY ==
[2017-09-03 10:40] VITALS: BP 95/51; PULSE 68; RESP 20; TEMP 36.9; O2SAT 98
[2017-09-03 11:10] VITALS: BP 106/65; PULSE 70; RESP 20; TEMP 36.7; O2SAT 96
[2017-09-03 11:40] VITALS: BP 110/70; PULSE 72; RESP 20; TEMP 36.6; O2SAT 97
== END 2017-09-03 11:45 | disposition home or self-care (01) ==
LOC: INF 10:30
PROVIDERS: Family Provider Family Medicine; PCP Family Medicine; Visit Provider Internal Medicine
DX: C18.9 Malignant neoplasm of colon, unspecified
CPT/HCPCS: 96365

== ENCOUNTER → 2017-09-07 08:21 | Outpatient (CLI) | payer MEDICARE, BC, SELFPAY ==
[2017-09-07 08:30] VITALS: BP 122/78; PULSE 66; RESP 20; TEMP 36.4; O2SAT 96
[2017-09-07 08:36] VITALS: BMI 19.9
[2017-09-07 08:49] LABS: Basophils % 0.5 % (0.1-2.0); Eosinophils # 0.2 K/mm3 (0.0-0.4); Eosinophils % 2.9 % (0.1-12.0); Hematocrit 33.2 % (37.0-47.0); Lymphocytes # 1.8 K/mm3 (0.7-4.5); Lymphocytes % 29.7 K/mm3 (10-50); Mean Corpuscular Hemoglobin 26.6 pg (27.0-31.2); Mean Corpuscular Volume 88.7 fl (81-99); Monocytes # 0.4 K/mm3 (0.1-1.0); Monocytes % 7.2 % (1.7-9.3); Neutrophils # 3.7 K/mm3 (1.8-7.8); Neutrophils % 59.7 % (37.0-80.0); Platelet Count 734 K/mm3 (142-424); Red Blood Count 3.75 M/mm3 (4.20-5.40); White Blood Count 6.1 K/mm3 (4.8-10.8)
[2017-09-07 08:56] LABS: Red Cell Distribution Width 25.4 % (11.5-17.5)
[2017-09-07 09:12] LABS: Alanine Aminotransferase 16 U/L (12-78); Albumin Level 2.8 gm/dL (3.4-5.0); Albumin/Globulin Ratio 0.7 (1.1-1.8); Alkaline Phosphatase 72 U/L (46-116); Anion Gap 10.8 mEq/L (5-15); Aspartate Amino Transferase 13 U/L (15-37); Bilirubin,Total 0.2 mg/dL (0.2-1.0); Blood Urea Nitrogen 18 mg/dL (7-18); Calcium 8.7 mg/dL (8.5-10.1); Carbon Dioxide 27 mmol/L (21.0-32.0); Chloride 99 mmol/L (98-107); Creatinine Clearance Estimated 41 mL/min (0-300); Creatinine,Serum 0.87 mg/dL (0.55-1.02); Estimated Glomerular Filt Rate 64 ml/min (>60); GFR (African American) 78 ML/MIN (>60); Globulin 4.2 gm/dl (1.3-3.2); Glucose 106 mg/dL (74-106); Potassium 3.8 mmoL/L (3.5-5.1); Sodium 133 mmol/L (136-145)
--- NOTE | 2017-09-07 09:18 | CT_ITS ---
CT chest w con HISTORY: Follow-up pulmonary metastasis, colon cancer ITS.REASON: COLON CANCER ORDERING PHYSICIAN: Mor Jo MD PATIENT AGE: 72 years TECHNIQUE: Axial images obtained following the administration of 75 mL of Isovue 370 . Sagittal, and coronal reformatted images are also generated and reviewed. COMPARISON: 07/06/2017 FINDINGS: Mediastinal adenopathy is once again noted but has improved compared to the previous exam. Cluster of right paratracheal lymph nodes measures 4.3 x 2.7 cm previously 5.5 x 3.5 cm. Subcarinal nodes now measures 2.2 x 2.1 cm previously 3.3 x 3.2 cm. Multiple bilateral pulmonary nodules are once again noted. Most of the nodules are smaller than when compared to the previous exam a few of which are unchanged. No new nodules demonstrated. The largest mass is in the right upper with a bilobular configuration measuring 7 x 4 x 4.3 cm previously 7.7 x 5 x 5.5 cm. No effusions or infiltrates are evident.. No destructive bony anomalies. IMPRESSION: Overall mild improvement in the pulmonary and mediastinal metastasis.
--- NOTE | 2017-09-07 09:19 | CT_ITS ---
CT abdomen pelvis w con CLINICAL INDICATION: Metastatic colon cancer ITS.REASON: COLON CANCER ORDERING PHYSICIAN: Mor Jo MD PATIENT AGE: 72 years COMPARISON: 06/23/2017 TECHNIQUE: Axial images obtained with sagittal and coronal reformats. PROCEDURE: Oral Contrast: Redicat IV Contrast: 75 mL's of Isovue-370 performed in conjunction with the chest CT. FINDINGS: There are multiple hepatic lesions once again noted. The largest lesion is in the right hepatic lobe superiorly measuring 8.4 x 5.3 cm x 6.9 cm previously measuring 10 x 5.2 x 7.9 cm. There are multiple other smaller lesions which are not significantly changed. Gallstones are present. The spleen, adrenal glands, and pancreas are unremarkable. There is a 3.4 cm right renal cyst. No hydronephrosis. There is a moderate amount retained colonic feces. Unremarkable appendix. Has been prior hysterectomy. Thickening of the sigmoid colon is once again noted and may be slightly improved. No destructive bone lesions evident. IMPRESSION: 1. Persistent hepatic metastasis. The largest hepatic lesion is slightly smaller with other smaller lesions not significant change. 2. Slight improvement in the thickening of the sigmoid colon presumed to represent the area of primary carcinoma
--- NOTE | 2017-09-07 09:54 | HMH.ITSHM ---
VIT D 3 REMERON VIT B 12 SLO NIACIN ASPIRIN POTASSIUM CHLORIDE RAMIPRIL CAPECITABINE
[2017-09-07 10:00] VITALS: BP 128/66; PULSE 66; RESP 20; TEMP 36.9; O2SAT 96
== END ==
PROVIDERS: Family Provider Family Medicine; PCP Family Medicine; Visit Provider Internal Medicine
DX: C18.9 Malignant neoplasm of colon, unspecified (principal)
CPT/HCPCS: 71260; 74177; 80053; 85025; J1642; Q9967

== ENCOUNTER 2017-09-08 09:10 | Outpatient (CLI) | payer MEDICARE, BC, SELFPAY ==
[2017-09-08] VITALS (12 sets, daily range): BP systolic 90–102; BP diastolic 42–49; PULSE 77–92; RESP 20; TEMP 36.3–36.4; O2SAT 94–96; BMI 22.1
[2017-09-08 09:27] LABS: Microscopic, Urine URINE MICROSCOPIC (MICROSCOPIC)
[2017-09-08 09:58] LABS: Appearance,Urine CLEAR (Clear); Bilirubin,Urine Negative (Negative); Blood, Urine TRACE-L (Negative); Color,Urine YELLOW (Yellow); Glucose,Urine (UA) Negative (Negative); Ketones,Urine Negative (Negative); Leukocyte Esterase,Urine 2+ (Negative); Nitrate,Urine Negative (Negative); Protein,Urine Negative (Negative); Urobilinogen,Urine 0.2 EU/dl (0.2)
[2017-09-08 10:13] LABS: Bacteria,Urine Trace /lpf; RBC,Urine Occasional #/hpf (0-3); WBC,Urine 50-100 #/hpf (0-3)
== END 2017-09-08 14:35 | disposition home or self-care (01) ==
LOC: INF 09:28
PROVIDERS: Family Provider Family Medicine; PCP Family Medicine; Visit Provider Internal Medicine
DX: C18.9 Malignant neoplasm of colon, unspecified (principal); N30.90 Cystitis, unspecified without hematuria
CPT/HCPCS: 81001; 87086; 96360; 96413; 96415; 96417; J9035; J9206; Q0166

== ENCOUNTER 2017-09-10 13:20 | Outpatient (CLI) | payer MEDICARE, BC, SELFPAY ==
[2017-09-10 13:20] VITALS: BP 118/58; PULSE 76; RESP 20; TEMP 36.7; O2SAT 96
[2017-09-10 13:55] VITALS: BP 118/68; PULSE 60; RESP 20; TEMP 36.6; O2SAT 96
[2017-09-10 14:25] VITALS: BP 117/62; PULSE 68; RESP 20; TEMP 36.9; O2SAT 96
== END 2017-09-10 14:30 | disposition home or self-care (01) ==
LOC: INF 13:29
PROVIDERS: Family Provider Family Medicine; PCP Family Medicine; Visit Provider Internal Medicine
DX: C18.9 Malignant neoplasm of colon, unspecified
CPT/HCPCS: 96360; J1642

== ENCOUNTER 2017-09-20 08:25 | Outpatient (CLI) | payer MEDICARE, BC, SELFPAY ==
[2017-09-20] VITALS (12 sets, daily range): BP systolic 98–121; BP diastolic 51–66; PULSE 67–85; RESP 18; TEMP 36.4–36.5; O2SAT 96–97; BMI 20.2
[2017-09-20 08:52] LABS: Basophils % 0.6 % (0.1-2.0); Eosinophils # 0.1 K/mm3 (0.0-0.4); Eosinophils % 1.3 % (0.1-12.0); Hematocrit 32.9 % (37.0-47.0); Hemoglobin 9.9 g/dL (12.2-16.2); Lymphocytes # 1.6 K/mm3 (0.7-4.5); Lymphocytes % 21.1 K/mm3 (10-50); Mean Corpuscular HGB Conc 30.2 g/dL (31.8-35.4); Mean Corpuscular Hemoglobin 28.4 pg (27.0-31.2); Mean Corpuscular Volume 93.9 fl (81-99); Mean Platelet Volume 6.5 fl (7.4-10.4); Monocytes # 0.7 K/mm3 (0.1-1.0); Monocytes % 9.2 % (1.7-9.3); Neutrophils # 5.1 K/mm3 (1.8-7.8); Neutrophils % 67.9 % (37.0-80.0); Platelet Count 454 K/mm3 (142-424); White Blood Count 7.4 K/mm3 (4.8-10.8)
[2017-09-20 08:54] LABS: Red Cell Distribution Width 25.9 % (11.5-17.5)
[2017-09-20 09:09] LABS: Alanine Aminotransferase 12 U/L (12-78); Albumin Level 2.9 gm/dL (3.4-5.0); Albumin/Globulin Ratio 0.7 (1.1-1.8); Alkaline Phosphatase 91 U/L (46-116); Aspartate Amino Transferase 12 U/L (15-37); Bilirubin,Total 0.4 mg/dL (0.2-1.0); Blood Urea Nitrogen 17 mg/dL (7-18); Calcium 8.7 mg/dL (8.5-10.1); Carbon Dioxide 24 mmol/L (21.0-32.0); Chloride 101 mmol/L (98-107); Creatinine Clearance Estimated 42 mL/min (0-300); Creatinine,Serum 0.77 mg/dL (0.55-1.02); Estimated Glomerular Filt Rate 74 ml/min (>60); GFR (African American) 90 ML/MIN (>60); Globulin 3.9 gm/dl (1.3-3.2); Glucose 109 mg/dL (74-106); Sodium 135 mmol/L (136-145); Total Protein,Serum 6.8 gm/dL (6.4-8.2)
[2017-09-20 09:46] LABS: Microscopic, Urine URINE MICROSCOPIC (MICROSCOPIC)
[2017-09-20 09:48] LABS: Appearance,Urine CLOUDY (Clear); Bilirubin,Urine Negative (Negative); Blood, Urine 3+ (Negative); Color,Urine YELLOW (Yellow); Glucose,Urine (UA) Negative (Negative); Ketones,Urine Negative (Negative); Leukocyte Esterase,Urine 3+ (Negative); Nitrate,Urine Negative (Negative); PH,Urine 7.5 (5.0-8.5); Protein,Urine 1+ (Negative); Specific Gravity, Urine 1.015 (1.005-1.030); Urobilinogen,Urine 0.2 EU/dl (0.2)
[2017-09-20 10:09] LABS: Bacteria,Urine 3+ /lpf; Mucus,Urine 1+ /lpf; RBC,Urine 20-50 #/hpf (0-3); WBC,Urine 50-100 #/hpf (0-3)
== END 2017-09-20 13:05 | disposition home or self-care (01) ==
LOC: INF 08:38
PROVIDERS: Family Provider Family Medicine; PCP Family Medicine; Visit Provider Internal Medicine
DX: C18.9 Malignant neoplasm of colon, unspecified (principal); R82.90 Unspecified abnormal findings in urine; Z51.11 Encounter for antineoplastic chemotherapy
CPT/HCPCS: 80053; 81001; 85025; 87086; 96413; 96415; 96417; J9035; J9206; Q0166

== ENCOUNTER 2017-10-04 09:41 | Outpatient (CLI) | payer MEDICARE, BC, SELFPAY ==
[2017-10-04] VITALS (15 sets, daily range): BP systolic 88–117; BP diastolic 45–57; PULSE 70–87; RESP 18; TEMP 36.6–36.7; O2SAT 96–98; BMI 19.2
[2017-10-04 10:06] LABS: Basophils % 0.4 % (0.1-2.0); Eosinophils # 0.1 K/mm3 (0.0-0.4); Hematocrit 31.2 % (37.0-47.0); Lymphocytes # 1.4 K/mm3 (0.7-4.5); Lymphocytes % 23.1 K/mm3 (10-50); Mean Corpuscular HGB Conc 31.5 g/dL (31.8-35.4); Mean Corpuscular Hemoglobin 30.5 pg (27.0-31.2); Mean Corpuscular Volume 96.6 fl (81-99); Monocytes # 0.3 K/mm3 (0.1-1.0); Monocytes % 4.6 % (1.7-9.3); Neutrophils # 4.4 K/mm3 (1.8-7.8); Platelet Count 674 K/mm3 (142-424); Red Blood Count 3.23 M/mm3 (4.20-5.40); Red Cell Distribution Width 24.3 % (11.5-17.5); White Blood Count 6.3 K/mm3 (4.8-10.8)
[2017-10-04 10:19] LABS: Alanine Aminotransferase 10 U/L (12-78); Albumin Level 2.7 gm/dL (3.4-5.0); Albumin/Globulin Ratio 0.7 (1.1-1.8); Alkaline Phosphatase 68 U/L (46-116); Anion Gap 11.6 mEq/L (5-15); Aspartate Amino Transferase 14 U/L (15-37); Bilirubin,Total 0.4 mg/dL (0.2-1.0); Blood Urea Nitrogen 22 mg/dL (7-18); Calcium 8.8 mg/dL (8.5-10.1); Carbon Dioxide 26 mmol/L (21.0-32.0); Chloride 97 mmol/L (98-107); Creatinine Clearance Estimated 39 mL/min (0-300); Creatinine,Serum 0.79 mg/dL (0.55-1.02); Estimated Glomerular Filt Rate 72 ml/min (>60); GFR (African American) 87 ML/MIN (>60); Globulin 3.8 gm/dl (1.3-3.2); Glucose 109 mg/dL (74-106); Potassium 3.6 mmoL/L (3.5-5.1); Sodium 131 mmol/L (136-145); Total Protein,Serum 6.5 gm/dL (6.4-8.2)
[2017-10-04 10:32] LABS: Hemoglobin 9.8 g/dL (12.2-16.2)
[2017-10-04 11:12] LABS: Microscopic, Urine URINE MICROSCOPIC (MICROSCOPIC)
[2017-10-04 11:14] LABS: Appearance,Urine TURBID (Clear); Bilirubin,Urine Negative (Negative); Blood, Urine 1+ (Negative); Color,Urine YELLOW (Yellow); Glucose,Urine (UA) Negative (Negative); Ketones,Urine Negative (Negative); Leukocyte Esterase,Urine 2+ (Negative); Nitrate,Urine Negative (Negative); PH,Urine 6.5 (5.0-8.5); Protein,Urine Negative (Negative); Urobilinogen,Urine 0.2 EU/dl (0.2)
[2017-10-04 11:29] LABS: Bacteria,Urine 3+ /lpf; WBC,Urine 20-50 #/hpf (0-3)
== END 2017-10-04 14:40 | disposition home or self-care (01) ==
LOC: INF 09:41
PROVIDERS: Family Provider Family Medicine; PCP Family Medicine; Visit Provider Internal Medicine
DX: Z51.11 Encounter for antineoplastic chemotherapy (principal); C18.9 Malignant neoplasm of colon, unspecified; R82.90 Unspecified abnormal findings in urine
CPT/HCPCS: 80053; 81001; 85025; 87086; 96360; 96413; 96415; 96417; J9035; J9206; Q0166

== ENCOUNTER 2017-10-06 10:00 | Outpatient (CLI) | payer MEDICARE, BC, SELFPAY ==
[2017-10-06] VITALS (7 sets, daily range): BP systolic 104–119; BP diastolic 38–91; PULSE 79–90; RESP 18; TEMP 37.1; O2SAT 97
== END 2017-10-06 14:15 | disposition home or self-care (01) ==
LOC: INF 12:13
PROVIDERS: Family Provider Family Medicine; PCP Family Medicine; Visit Provider Internal Medicine
DX: C18.9 Malignant neoplasm of colon, unspecified (principal)
CPT/HCPCS: 96360; 96361; J1642

== ENCOUNTER 2017-10-08 11:07 | Outpatient (CLI) | payer MEDICARE, BC, SELFPAY ==
[2017-10-08] VITALS (7 sets, daily range): BP systolic 79–101; BP diastolic 32–59; PULSE 88–117; RESP 18; TEMP 36.8; O2SAT 96–97
--- NOTE | 2017-10-08 11:11 | CT_ITS ---
CT pelvis wo con COMPARISON: CT scan abdomen pelvis 09/07/2017 HISTORY: Known colon carcinoma with hepatic metastasis, clinical suspicion of colovaginal fistula TECHNIQUE: Multiaxial scans obtained from the lower abdomen to the pelvic floor. Oral contrast was used. FINDINGS: Initial scanning of the lower abdomen and pelvis was performed to soon after the administration of oral contrast which is not reached the cecum and rectum as yet. Delayed scanning was performed with oral contrast mixed with stool seen in the descending and sigmoid colon. On the sagittal sequence image #44 is an obvious fistulous connection between the anterior wall the rectum and the vaginal cuff. There is rectal contrast seen through the fistula and into the vaginal vault. The urinary bladder is intact. 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
--- NOTE | 2017-10-08 18:49 | PC.NURSE ---
pt to ct for a rescan, transported per wc by rad staff. pt to be d/c's after rescan.
== END 2017-10-08 16:00 | disposition home or self-care (01) ==
PROVIDERS: PCP Family Medicine; Visit Provider Internal Medicine
DX: C18.9 Malignant neoplasm of colon, unspecified (principal)
CPT/HCPCS: 72192; 96360; 96361; J1642

== ENCOUNTER 2017-10-11 10:25 | Outpatient (CLI) | payer MEDICARE, BC, SELFPAY ==
[2017-10-11] VITALS (7 sets, daily range): BP systolic 107–121; BP diastolic 54–64; PULSE 83–92; RESP 18; TEMP 36.3; O2SAT 98–99; BMI 18.8
--- NOTE | 2017-10-11 14:46 | PC.NURSE ---
1355-port flushed with saline and heparin. deaccessed port and applied bandaid
== END 2017-10-11 13:55 | disposition home or self-care (01) ==
LOC: INF 10:34
PROVIDERS: Family Provider Family Medicine; PCP Family Medicine; Visit Provider Internal Medicine
DX: C18.9 Malignant neoplasm of colon, unspecified (principal)
CPT/HCPCS: 96360; 96361; J1642

== ENCOUNTER 2017-10-13 13:00 | Outpatient (CLI) | payer MEDICARE, BC, SELFPAY ==
[2017-10-13 13:45] VITALS: BP 119/61; PULSE 73; RESP 16; TEMP 36.7
[2017-10-13 14:15] VITALS: BP 125/63; PULSE 68; RESP 18
[2017-10-13 14:45] VITALS: BP 133/65; PULSE 72; RESP 18
[2017-10-13 15:15] VITALS: BP 126/66; PULSE 68; RESP 18
[2017-10-13 15:45] VITALS: BP 119/61; PULSE 69; RESP 18
[2017-10-13 16:00] VITALS: BP 119/61; PULSE 69; RESP 18
--- NOTE | 2017-10-13 17:05 | PC.NURSE ---
left chest portacath, dressing covered
== END 2017-10-13 16:00 | disposition home or self-care (01) ==
LOC: INF 13:43
PROVIDERS: Family Provider Family Medicine; PCP Family Medicine; Visit Provider Internal Medicine
DX: C18.9 Malignant neoplasm of colon, unspecified
CPT/HCPCS: 96360; 96361; J1642

== ENCOUNTER 2017-10-15 13:10 | Outpatient (CLI) | payer MEDICARE, BC, SELFPAY ==
[2017-10-15 13:10] VITALS: BP 106/49; PULSE 76; RESP 20; TEMP 36.8; O2SAT 97
[2017-10-15 14:25] VITALS: BMI 18.8
[2017-10-15 15:33] VITALS: BP 106/53; PULSE 72; RESP 16; TEMP 36.9; O2SAT 99
== END 2017-10-15 15:40 | disposition home or self-care (01) ==
LOC: INF 14:19
PROVIDERS: Family Provider Family Medicine; PCP Family Medicine; Visit Provider Internal Medicine
DX: C18.9 Malignant neoplasm of colon, unspecified (principal)
CPT/HCPCS: 96360; 96361; J1642

== ENCOUNTER 2017-10-18 10:30 | Outpatient (CLI) | payer MEDICARE, BC, SELFPAY ==
[2017-10-18 10:35] VITALS: BP 89/43; PULSE 68; RESP 20; TEMP 36.9; O2SAT 96
[2017-10-18 11:35] VITALS: BP 103/55; PULSE 68; RESP 20; TEMP 36.9; O2SAT 96
[2017-10-18 12:30] VITALS: BP 103/55; PULSE 68; RESP 20; TEMP 36.6; O2SAT 100
--- NOTE | 2017-10-18 18:03 | PC.NURSE ---
applied umang hose to patient; instructed patient to wear them as often as she could to help with swelling
== END 2017-10-18 12:45 | disposition home or self-care (01) ==
LOC: INF 10:39
PROVIDERS: Family Provider Family Medicine; PCP Family Medicine; Visit Provider Internal Medicine
DX: C18.9 Malignant neoplasm of colon, unspecified (principal)
CPT/HCPCS: 96360; 96361; J1642

== ENCOUNTER 2017-10-20 09:25 | Outpatient (CLI) | payer MEDICARE, BC, SELFPAY ==
[2017-10-20] VITALS (9 sets, daily range): BP systolic 91–118; BP diastolic 33–52; PULSE 70–86; RESP 18; TEMP 36.7; O2SAT 95–97; BMI 19.2
--- NOTE | 2017-10-20 12:01 | PC.NURSE ---
infusion completed heparin 500units flush administered to port
== END 2017-10-20 11:50 | disposition home or self-care (01) ==
LOC: INF 09:43
PROVIDERS: Family Provider Family Medicine; PCP Family Medicine; Visit Provider Internal Medicine
DX: C18.9 Malignant neoplasm of colon, unspecified (principal)
CPT/HCPCS: 96360; 96361; J1642

== ENCOUNTER 2017-10-22 08:30 | Outpatient (CLI) | payer MEDICARE, BC, SELFPAY ==
[2017-10-22 09:30] VITALS: BP 122/78; PULSE 68; RESP 22; TEMP 37.2; O2SAT 96
[2017-10-22 10:30] VITALS: BP 123/80; PULSE 66; RESP 20; O2SAT 96
[2017-10-22 11:30] VITALS: BP 126/70; PULSE 68; RESP 20; TEMP 36.9; O2SAT 96
== END 2017-10-22 11:45 | disposition home or self-care (01) ==
LOC: INF 09:21
PROVIDERS: Family Provider Family Medicine; PCP Family Medicine; Visit Provider Internal Medicine
DX: C18.9 Malignant neoplasm of colon, unspecified (principal)
CPT/HCPCS: 96360; 96361; J1642

== ENCOUNTER 2017-10-25 12:53 | Outpatient (CLI) | payer MEDICARE, BC, SELFPAY ==
[2017-10-25 13:05] VITALS: BP 106/56; PULSE 86; RESP 20; TEMP 36.9; O2SAT 98
[2017-10-25 14:00] VITALS: BP 121/64; PULSE 68; RESP 20; TEMP 36.4; O2SAT 98
[2017-10-25 14:30] VITALS: BP 122/70; PULSE 68; RESP 20; TEMP 36.9; O2SAT 96
[2017-10-25 15:05] VITALS: BP 122/78; PULSE 68; RESP 20; TEMP 36.4; O2SAT 96
== END 2017-10-25 15:05 | disposition home or self-care (01) ==
LOC: INF 12:53
PROVIDERS: Family Provider Family Medicine; PCP Family Medicine; Visit Provider Internal Medicine
DX: C18.9 Malignant neoplasm of colon, unspecified (principal)
CPT/HCPCS: 96360; 96361; J1642

== ENCOUNTER 2017-10-27 09:50 | Outpatient (CLI) | payer MEDICARE, BC, SELFPAY ==
[2017-10-27 10:05] VITALS: BP 107/59; PULSE 66; RESP 18; O2SAT 97
[2017-10-27 10:35] VITALS: BP 108/63; PULSE 69; RESP 16
[2017-10-27 11:05] VITALS: BP 102/53; PULSE 75; RESP 16
[2017-10-27 11:35] VITALS: BP 117/47; PULSE 71; RESP 16
[2017-10-27 12:05] VITALS: BP 114/50; PULSE 74; RESP 18
== END 2017-10-27 12:20 | disposition home or self-care (01) ==
LOC: INF 10:05
PROVIDERS: Family Provider Family Medicine; PCP Family Medicine; Visit Provider Internal Medicine
DX: C18.9 Malignant neoplasm of colon, unspecified (principal)
CPT/HCPCS: 96360; 96361; J1642

== ENCOUNTER 2017-10-29 09:46 | Outpatient (CLI) | payer MEDICARE, BC, SELFPAY ==
[2017-10-29 10:15] VITALS: BP 111/57; PULSE 68; RESP 20; TEMP 36.9; O2SAT 96
[2017-10-29 10:45] VITALS: BP 122/70; PULSE 68; RESP 20; TEMP 36.9; O2SAT 96
[2017-10-29 11:15] VITALS: BP 101/58; PULSE 68; RESP 20; TEMP 36.9; O2SAT 96
[2017-10-29 12:15] VITALS: BP 122/70; PULSE 68; RESP 20; TEMP 36.9; O2SAT 96
== END 2017-10-29 12:15 | disposition home or self-care (01) ==
LOC: INF 09:46
PROVIDERS: Family Provider Family Medicine; PCP Family Medicine; Visit Provider Internal Medicine
DX: C18.9 Malignant neoplasm of colon, unspecified (principal)
CPT/HCPCS: 96360; 96361; J1642

== ENCOUNTER 2017-11-01 09:54 | Outpatient (CLI) | payer MEDICARE, BC, SELFPAY ==
[2017-11-01] VITALS (7 sets, daily range): BP systolic 98–116; BP diastolic 48–68; PULSE 78–95; RESP 16–18; TEMP 36.5
== END 2017-11-01 12:40 | disposition home or self-care (01) ==
LOC: INF 09:54
PROVIDERS: Family Provider Family Medicine; PCP Family Medicine; Visit Provider Internal Medicine
DX: C18.9 Malignant neoplasm of colon, unspecified (principal)
CPT/HCPCS: 96360; 96361; J1642

== ENCOUNTER 2017-12-01 09:34 | Outpatient (CLI) | payer MEDICARE, BC, SELFPAY ==
[2017-12-01 09:30] VITALS: BMI 20.4
[2017-12-01 10:00] LABS: Basophils # 0.1 K/mm3 (0-0.2); Basophils % 0.7 % (0.1-2.0); Eosinophils # 0.4 K/mm3 (0.0-0.4); Eosinophils % 4.1 % (0.1-12.0); Hematocrit 40.8 % (37.0-47.0); Lymphocytes # 2.6 K/mm3 (0.7-4.5); Lymphocytes % 28.5 K/mm3 (10-50); Mean Corpuscular HGB Conc 29.5 g/dL (31.8-35.4); Mean Corpuscular Hemoglobin 29.8 pg (27.0-31.2); Mean Platelet Volume 7.5 fl (7.4-10.4); Monocytes # 0.5 K/mm3 (0.1-1.0); Neutrophils # 5.5 K/mm3 (1.8-7.8); Neutrophils % 60.7 % (37.0-80.0); Platelet Count 430 K/mm3 (142-424); Red Blood Count 4.03 M/mm3 (4.20-5.40); Red Cell Distribution Width 15.8 % (11.5-17.5); White Blood Count 9.1 K/mm3 (4.8-10.8)
[2017-12-01 10:13] LABS: Alanine Aminotransferase 20 U/L (12-78); Albumin Level 3.4 gm/dL (3.4-5.0); Albumin/Globulin Ratio 0.8 (1.1-1.8); Alkaline Phosphatase 85 U/L (46-116); Aspartate Amino Transferase 17 U/L (15-37); Bilirubin,Total 0.3 mg/dL (0.2-1.0); Blood Urea Nitrogen 22 mg/dL (7-18); Calcium 9.8 mg/dL (8.5-10.1); Carbon Dioxide 26 mmol/L (21.0-32.0); Chloride 104 mmol/L (98-107); Creatinine Clearance Estimated 40 mL/min (0-300); Creatinine,Serum 0.85 mg/dL (0.55-1.02); Estimated Glomerular Filt Rate 66 ml/min (>60); GFR (African American) 80 ML/MIN (>60); Globulin 4.2 gm/dl (1.3-3.2); Glucose 113 mg/dL (74-106); Sodium 140 mmol/L (136-145); Total Protein,Serum 7.6 gm/dL (6.4-8.2)
== END 2017-12-01 11:32 | disposition home or self-care (01) ==
LOC: INF 09:34
PROVIDERS: Family Provider Family Medicine; PCP Family Medicine; Visit Provider Internal Medicine
DX: C18.9 Malignant neoplasm of colon, unspecified (principal)
CPT/HCPCS: 80053; 85025; J1642

== ENCOUNTER 2017-12-10 08:59 | Outpatient (CLI) | payer MEDICARE, BC, SELFPAY ==
--- NOTE | 2017-12-10 09:05 | CT_ITS ---
CT abdomen pelvis w con Ordering Physician: Mor Jo MD Patient Age: 72 years: Female HISTORY: ITS.REASON: SIGMOID CA TECHNIQUE: Helical CT scanning performed abdomen & pelvis with oral & 75 cc Isovue-370 IV contrast utilized. Axial sagittal and coronal reconstructions performed on CT workstation. All CT scans at this facility used one or more dose reduction techniques , viz: automatic exposure control, ma/Kv adjustment per patient's size, (including targeted exam where dose matched to the indication; i.e. head); or iterative reconstruction technique COMPARISON :09/07/2017 CT abdomen FINDINGS LIVER. Clear improvement, regression of large dominant metastatic disease at liver. The large lobulated dominant metastatic lesion at dome of liver Has clearly decreased in size since previous studies.. Today 6 cm transverse 4.5 cm AP x 5 cm height. (On previous September 2017 study it measured over 8 cm transverse, 5.5 cm AP, and nearly 6 cm height) . A smaller round metastatic lesion just inferior to this at right lobe liver has also decreased in size, now measuring 18 mm (previously 26 mm, in September) Gallbladder. Diffuse gallbladder wall thickening with edematous appearing wall. Gas containing gallstones were actually better delineated previously. Other any right upper quadrant symptoms or abnormal lab associated. Suggest gallbladder ultrasound especially of developing biliary symptoms or focal pain here by today's CT would be concern regarding developing significant cholecystitis. Right kidney. Stable benign renal cyst 3.2 cm. It is good excretion of both kidneys with ureters appear normal. GI tract. . Colostomy now evident at LLQ. New since previous study. The descending left colon leads to the lower left ostomy appears to been resection proximal & mid sigmoid colon... Distal sigmoid colon remains with generous wall thickness mainly reflecting its contracted state. Would also note generous gas, still distending the rectum.... Prominent stool is seen throughout the right & transverse colon reflecting mild proximal: constipation. 90 minutes after ingestion the stomach still contains generous oral contrast. The oral contrast is moved through small bowel reaching the distal small bowel. But it has not yet reached the right colon. This suggests a slightly slow transit time. Scattered ovoid soft tissue densities throughout subcutaneous fat at the right lower abdomen. Multiple ovoid areas most notable to the right of the umbilicus. Does the patient performed subcutaneous injections in this region? Clinical correlation required. If not palpation & follow-up of these areas be important... No findings were seen here previously. The pancreas, spleen, and adrenals appear stable. No significant findings. No retroperitoneal or mesenteric adenopathy of significance. No significant pelvic adenopathy. The osseous structures. No significant findings. IMPRESSION 1. Clear improvement & regression of the prominent liver metastatic disease . 2. . Interval Sigmoid resection sigmoid colon neoplasm with divertingLeft lower quadrant colostomy now evident. 3. Scattered ovoid areas of density the left subcutaneous fat at the right abdomen. These may be related to subcutaneous injections. If the patient does not inject in this region, then palpation/ further correlation here with follow-up required. Cerebral
--- NOTE | 2017-12-10 09:05 | CT_ITS ---
CT chest w con Ordering Physician: Mor Jo MD Patient Age: 72 years: Female HISTORY: ITS.REASON: SIGMOID CA. Follow-up cancer with lung lesion TECHNIQUE: Helical CT scanning performed the chest following 75 cc Isovue-370 IV contrast utilized. Axial sagittal and coronal reconstructions performed on CT workstation. All CT scans at this facility used one or more dose reduction techniques , viz: automatic exposure control, ma/Kv adjustment per patient's size, (including targeted exam where dose matched to the indication; i.e. head); or iterative reconstruction technique COMPARISON :CT chest September 2017 FINDINGS: Right lobe of thyroid is enlarged with nodules. Largest up to 10 mm.. These are seen previously and appear similar, but consider ultrasound to further evaluate. = Mediastinal adenopathy is onceagain noted. Overall slight improvement. Compared to theprevious September exam.:: .Cluster of right paratracheal lymph nodes measures 4.3 length X2.2 cm transverse X2.5 cm AP (previously 4.3 x 2.7 x 2.8 cm AP) ... Precarinal lymph node 14 mm x 9.5 mm. (previously 16 x 11 mm.) . subcarinal nodes now measures 1.7 cm AP AP. Previously 2.2 cm Lungs Multiple bilateral pulmonary nodules /masses are once again noted. The largest nodules and masses are all smaller in size. Similar smaller areas appear stable with one or 2 of the small areas appearing slightly larger. Than when compared to the previous September and July exam. Few of which areunchanged. No new nodules demonstrated. The largest mass is in the RULwith a bilobular configuration measuring6.3 cm transverse x 3.2 cm AP (Previously 7 x 4 x 4.3 cm.). Slight cavitary character at the medial margin of this bilobed mass at RUL is slightly more apparent. . The largest nodule in the left lung is seen at the left upper lobe just anterior to the major fissure left midlung. It measures 18 mm x 12 mm on today's study ( previously 21 x 16 mm) The lingular nodule is slightly smaller as well 18 mm transverse, versus 20 mm transverse previous. Small mass at the right middle lobe is significant smaller and more wispy thin character. Measuring 1 cm length., Previously 14 mm x 10 mm. No effusions or infiltrates are evident.. No destructive bony anomalies. T9 demonstrates a subtle superior endplate compression fracture which is more apparent and likely is developed since prior studies. Subtle observation femoral correlation required. No lesion is seen here IMPRESSION:...... 1. Overall mild improvement in the pulmonary & mediastinal metastasis since September 2017 CT chest. ... Numerous pulmonary nodules & masses are again seen.The largest pulmonary lesions shown the most evident regression. ... Moderate residual mediastinal adenopathy has shown minimal improvement 2. At T9 new very mild superior endplate compression noted.. Correlation required.. No discrete osseous lesion evident by CT .
== END 2017-12-10 09:50 | disposition home or self-care (01) ==
PROVIDERS: Family Provider Family Medicine; PCP Family Medicine; Visit Provider Internal Medicine
DX: C18.9 Malignant neoplasm of colon, unspecified (principal)
CPT/HCPCS: 71260; 74177; J1642; Q9967

== ENCOUNTER 2017-12-20 09:03 | Outpatient (CLI) | payer MEDICARE, BC, SELFPAY ==
[2017-12-20 09:05] VITALS: BMI 20.5
[2017-12-20 09:27] LABS: Microscopic, Urine URINE MICROSCOPIC (MICROSCOPIC)
[2017-12-20 09:30] LABS: Appearance,Urine CLEAR (Clear); Bilirubin,Urine Negative (Negative); Blood, Urine Negative (Negative); Color,Urine YELLOW (Yellow); Glucose,Urine (UA) Negative (Negative); Ketones,Urine Negative (Negative); Leukocyte Esterase,Urine 1+ (Negative); Nitrate,Urine POSITIVE (Negative); PH,Urine 5.5 (5.0-8.5); Protein,Urine Negative (Negative); Specific Gravity, Urine 1.015 (1.005-1.030); Urobilinogen,Urine 0.2 EU/dl (0.2)
[2017-12-20 09:31] LABS: Basophils # 0.1 K/mm3 (0-0.2); Basophils % 0.7 % (0.1-2.0); Eosinophils # 0.3 K/mm3 (0.0-0.4); Eosinophils % 3.3 % (0.1-12.0); Hematocrit 37.9 % (37.0-47.0); Hemoglobin 11.7 g/dL (12.2-16.2); Lymphocytes # 2.8 K/mm3 (0.7-4.5); Lymphocytes % 27.5 K/mm3 (10-50); Mean Corpuscular HGB Conc 30.9 g/dL (31.8-35.4); Mean Corpuscular Hemoglobin 29.8 pg (27.0-31.2); Mean Corpuscular Volume 96.5 fl (81-99); Mean Platelet Volume 7.1 fl (7.4-10.4); Monocytes # 0.6 K/mm3 (0.1-1.0); Monocytes % 5.9 % (1.7-9.3); Neutrophils # 6.5 K/mm3 (1.8-7.8); Neutrophils % 62.6 % (37.0-80.0); Platelet Count 364 K/mm3 (142-424); Red Blood Count 3.93 M/mm3 (4.20-5.40); Red Cell Distribution Width 14.4 % (11.5-17.5); White Blood Count 10.4 K/mm3 (4.8-10.8)
[2017-12-20 09:40] LABS: Alanine Aminotransferase 16 U/L (12-78); Albumin Level 3.2 gm/dL (3.4-5.0); Albumin/Globulin Ratio 0.8 (1.1-1.8); Alkaline Phosphatase 95 U/L (46-116); Anion Gap 11.1 mEq/L (5-15); Aspartate Amino Transferase 15 U/L (15-37); Bacteria,Urine 4+ /lpf; Bilirubin,Total 0.2 mg/dL (0.2-1.0); Blood Urea Nitrogen 24 mg/dL (7-18); Calcium 9.4 mg/dL (8.5-10.1); Carbon Dioxide 29 mmol/L (21.0-32.0); Chloride 104 mmol/L (98-107); Creatinine Clearance Estimated 42 mL/min (0-300); Creatinine,Serum 0.72 mg/dL (0.55-1.02); Estimated Glomerular Filt Rate 80 ml/min (>60); GFR (African American) 97 ML/MIN (>60); Globulin 4.1 gm/dl (1.3-3.2); Glucose 91 mg/dL (74-106); Mucus,Urine Trace /lpf; Potassium 4.1 mmoL/L (3.5-5.1); Sodium 140 mmol/L (136-145); Total Protein,Serum 7.3 gm/dL (6.4-8.2)
[2017-12-20 10:47] VITALS: BP 113/75; PULSE 91; RESP 18; TEMP 36.3; O2SAT 97
[2017-12-20 11:17] VITALS: BP 111/60; PULSE 81; RESP 18; O2SAT 96
[2017-12-20 11:47] VITALS: BP 121/65; PULSE 86; RESP 18; O2SAT 97
[2017-12-20 12:17] VITALS: BP 123/69; PULSE 93; RESP 18; O2SAT 97
[2017-12-20 12:47] VITALS: BP 121/64; PULSE 86; RESP 18; O2SAT 97
[2017-12-20 13:10] VITALS: BP 124/68; PULSE 87; RESP 18; O2SAT 96
== END 2017-12-20 13:15 | disposition home or self-care (01) ==
LOC: INF 09:03
PROVIDERS: Family Provider Family Medicine; PCP Family Medicine; Visit Provider Internal Medicine
DX: Z51.11 Encounter for antineoplastic chemotherapy (principal); C18.7 Malignant neoplasm of sigmoid colon; R82.90 Unspecified abnormal findings in urine
CPT/HCPCS: 80053; 81001; 85025; 87086; 87088; 87186; 96413; 96415; 96417; J9035; J9206; Q0166

== ENCOUNTER 2018-01-03 08:45 | Outpatient (CLI) | payer MEDICARE, BC, SELFPAY ==
[2018-01-03] VITALS (10 sets, daily range): BP systolic 105–126; BP diastolic 57–73; PULSE 69–84; RESP 16–18; TEMP 36.4; BMI 22.3
[2018-01-03 09:17] LABS: Appearance,Urine SL CLOUDY (Clear); Bilirubin,Urine Negative (Negative); Blood, Urine TRACE-L (Negative); Color,Urine YELLOW (Yellow); Glucose,Urine (UA) Negative (Negative); Ketones,Urine Negative (Negative); Leukocyte Esterase,Urine 1+ (Negative); Microscopic, Urine URINE MICROSCOPIC (MICROSCOPIC); Nitrate,Urine POSITIVE (Negative); Protein,Urine Negative (Negative); Urobilinogen,Urine 0.2 EU/dl (0.2)
[2018-01-03 09:18] LABS: Basophils % 0.4 % (0.1-2.0); Eosinophils # 0.3 K/mm3 (0.0-0.4); Eosinophils % 3.6 % (0.1-12.0); Hematocrit 39.9 % (37.0-47.0); Hemoglobin 12.2 g/dL (12.2-16.2); Lymphocytes # 3.1 K/mm3 (0.7-4.5); Lymphocytes % 38.4 K/mm3 (10-50); Mean Corpuscular HGB Conc 30.5 g/dL (31.8-35.4); Mean Corpuscular Hemoglobin 29.8 pg (27.0-31.2); Mean Corpuscular Volume 97.8 fl (81-99); Mean Platelet Volume 7.2 fl (7.4-10.4); Monocytes # 0.4 K/mm3 (0.1-1.0); Monocytes % 4.9 % (1.7-9.3); Neutrophils # 4.2 K/mm3 (1.8-7.8); Neutrophils % 52.6 % (37.0-80.0); Platelet Count 417 K/mm3 (142-424); Red Blood Count 4.08 M/mm3 (4.20-5.40); Red Cell Distribution Width 15.7 % (11.5-17.5)
[2018-01-03 09:28] LABS: Alanine Aminotransferase 15 U/L (12-78); Albumin Level 3.3 gm/dL (3.4-5.0); Albumin/Globulin Ratio 0.8 (1.1-1.8); Alkaline Phosphatase 81 U/L (46-116); Aspartate Amino Transferase 13 U/L (15-37); Bilirubin,Total 0.3 mg/dL (0.2-1.0); Blood Urea Nitrogen 22 mg/dL (7-18); Calcium 8.7 mg/dL (8.5-10.1); Carbon Dioxide 26 mmol/L (21.0-32.0); Chloride 104 mmol/L (98-107); Creatinine Clearance Estimated 44 mL/min (0-300); Creatinine,Serum 0.87 mg/dL (0.55-1.02); Estimated Glomerular Filt Rate 64 ml/min (>60); GFR (African American) 78 ML/MIN (>60); Globulin 3.9 gm/dl (1.3-3.2); Sodium 137 mmol/L (136-145); Total Protein,Serum 7.2 gm/dL (6.4-8.2)
[2018-01-03 09:32] LABS: Bacteria,Urine 3+ /lpf; RBC,Urine Occasional #/hpf (0-3)
[2018-01-03 09:43] LABS: Glucose 130 mg/dL (74-106)
--- NOTE | 2018-01-03 11:22 | PC.NURSE ---
PREMEDICATED WITH KYTRIL 2MG PO AT 1040 PRIOR TO IRINOTECAN INFUSION.
== END 2018-01-03 13:15 | disposition home or self-care (01) ==
LOC: INF 08:59
PROVIDERS: Family Provider Family Medicine; PCP Family Medicine; Visit Provider Internal Medicine
DX: Z51.11 Encounter for antineoplastic chemotherapy (principal); C18.7 Malignant neoplasm of sigmoid colon; C78.01 Secondary malignant neoplasm of right lung; C78.02 Secondary malignant neoplasm of left lung; R82.90 Unspecified abnormal findings in urine
CPT/HCPCS: 80053; 81001; 85025; 87086; 87088; 87186; 96413; 96415; 96417; J9035; J9206; Q0166

== ENCOUNTER 2018-01-19 08:31 | Outpatient (CLI) | payer MEDICARE, BC, SELFPAY ==
[2018-01-19 08:33] VITALS: BMI 20.4
[2018-01-19 09:00] LABS: Microscopic, Urine URINE MICROSCOPIC (MICROSCOPIC)
[2018-01-19 09:01] LABS: Appearance,Urine SL CLOUDY (Clear); Bilirubin,Urine Negative (Negative); Blood, Urine Negative (Negative); Color,Urine YELLOW (Yellow); Glucose,Urine (UA) Negative (Negative); Ketones,Urine Negative (Negative); Leukocyte Esterase,Urine Negative (Negative); Nitrate,Urine POSITIVE (Negative); Protein,Urine Negative (Negative); Urobilinogen,Urine 0.2 EU/dl (0.2)
[2018-01-19 09:03] LABS: Basophils # 0.1 K/mm3 (0-0.2); Basophils % 0.9 % (0.1-2.0); Eosinophils # 0.3 K/mm3 (0.0-0.4); Eosinophils % 4.5 % (0.1-12.0); Hematocrit 39.3 % (37.0-47.0); Hemoglobin 11.9 g/dL (12.2-16.2); Lymphocytes # 2.6 K/mm3 (0.7-4.5); Lymphocytes % 42.3 K/mm3 (10-50); Mean Corpuscular HGB Conc 30.3 g/dL (31.8-35.4); Mean Corpuscular Hemoglobin 30.2 pg (27.0-31.2); Mean Corpuscular Volume 99.7 fl (81-99); Monocytes # 0.5 K/mm3 (0.1-1.0); Monocytes % 7.5 % (1.7-9.3); Neutrophils # 2.7 K/mm3 (1.8-7.8); Neutrophils % 44.8 % (37.0-80.0); Platelet Count 232 K/mm3 (142-424); Red Blood Count 3.94 M/mm3 (4.20-5.40)
[2018-01-19 09:13] LABS: Bacteria,Urine 4+ /lpf
[2018-01-19 09:27] LABS: Alanine Aminotransferase 20 U/L (12-78); Albumin Level 3.2 gm/dL (3.4-5.0); Albumin/Globulin Ratio 0.9 (1.1-1.8); Alkaline Phosphatase 96 U/L (46-116); Anion Gap 10.2 mEq/L (5-15); Aspartate Amino Transferase 14 U/L (15-37); Bilirubin,Total 0.3 mg/dL (0.2-1.0); Blood Urea Nitrogen 20 mg/dL (7-18); Calcium 8.9 mg/dL (8.5-10.1); Carbon Dioxide 26 mmol/L (21.0-32.0); Chloride 107 mmol/L (98-107); Creatinine Clearance Estimated 40 mL/min (0-300); Creatinine,Serum 0.79 mg/dL (0.55-1.02); Estimated Glomerular Filt Rate 72 ml/min (>60); GFR (African American) 87 ML/MIN (>60); Globulin 3.6 gm/dl (1.3-3.2); Glucose 85 mg/dL (74-106); Potassium 4.2 mmoL/L (3.5-5.1); Sodium 139 mmol/L (136-145); Total Protein,Serum 6.8 gm/dL (6.4-8.2)
[2018-01-19 10:52] VITALS: BP 112/69; PULSE 74; RESP 20; TEMP 36.6; O2SAT 96
[2018-01-19 11:22] VITALS: BP 122/68; PULSE 79; RESP 20; O2SAT 97
[2018-01-19 11:52] VITALS: BP 132/78; PULSE 71; RESP 18; O2SAT 96
[2018-01-19 12:22] VITALS: BP 128/72; PULSE 74; RESP 18; O2SAT 97
[2018-01-19 12:52] VITALS: BP 141/80; PULSE 79; RESP 18; O2SAT 97
[2018-01-19 13:35] VITALS: BP 136/78; PULSE 78; RESP 18; O2SAT 97
== END 2018-01-19 13:40 | disposition home or self-care (01) ==
LOC: INF 08:31
PROVIDERS: Family Provider Family Medicine; PCP Family Medicine; Visit Provider Internal Medicine
DX: Z51.11 Encounter for antineoplastic chemotherapy (principal); C18.9 Malignant neoplasm of colon, unspecified; R82.90 Unspecified abnormal findings in urine
CPT/HCPCS: 80053; 81001; 85025; 87086; 87088; 87186; 96413; 96415; 96417; J1642; J9035; J9206; Q0166

== ENCOUNTER 2018-01-31 09:46 | Outpatient (CLI) | payer MEDICARE, BC, SELFPAY ==
[2018-01-31] VITALS (12 sets, daily range): BP systolic 91–122; BP diastolic 49–78; PULSE 72–95; RESP 16–18; TEMP 36.7; BMI 23.2
[2018-01-31 10:09] LABS: Microscopic, Urine URINE MICROSCOPIC (MICROSCOPIC)
[2018-01-31 10:13] LABS: Appearance,Urine CLEAR (Clear); Bilirubin,Urine Negative (Negative); Blood, Urine Negative (Negative); Color,Urine YELLOW (Yellow); Glucose,Urine (UA) Negative (Negative); Ketones,Urine Negative (Negative); Leukocyte Esterase,Urine TRACE (Negative); Nitrate,Urine POSITIVE (Negative); Protein,Urine Negative (Negative); Urobilinogen,Urine 0.2 EU/dl (0.2)
[2018-01-31 10:14] LABS: Basophils % 0.4 % (0.1-2.0); Eosinophils # 0.2 K/mm3 (0.0-0.4); Eosinophils % 2.9 % (0.1-12.0); Hematocrit 37.7 % (37.0-47.0); Hemoglobin 11.9 g/dL (12.2-16.2); Lymphocytes # 2.4 K/mm3 (0.7-4.5); Lymphocytes % 37.9 K/mm3 (10-50); Mean Corpuscular HGB Conc 31.5 g/dL (31.8-35.4); Mean Corpuscular Hemoglobin 31.4 pg (27.0-31.2); Mean Corpuscular Volume 99.5 fl (81-99); Mean Platelet Volume 7.6 fl (7.4-10.4); Monocytes # 0.3 K/mm3 (0.1-1.0); Monocytes % 4.5 % (1.7-9.3); Neutrophils # 3.5 K/mm3 (1.8-7.8); Neutrophils % 54.3 % (37.0-80.0); Platelet Count 310 K/mm3 (142-424); Red Blood Count 3.78 M/mm3 (4.20-5.40); Red Cell Distribution Width 18.3 % (11.5-17.5); White Blood Count 6.4 K/mm3 (4.8-10.8)
[2018-01-31 10:24] LABS: Alanine Aminotransferase 17 U/L (12-78); Albumin Level 3.3 gm/dL (3.4-5.0); Albumin/Globulin Ratio 0.9 (1.1-1.8); Alkaline Phosphatase 79 U/L (46-116); Anion Gap 13.1 mEq/L (5-15); Aspartate Amino Transferase 11 U/L (15-37); Bilirubin,Total 0.4 mg/dL (0.2-1.0); Blood Urea Nitrogen 19 mg/dL (7-18); Calcium 9.2 mg/dL (8.5-10.1); Carbon Dioxide 26 mmol/L (21.0-32.0); Chloride 105 mmol/L (98-107); Creatinine Clearance Estimated 46 mL/min (0-300); Creatinine,Serum 0.99 mg/dL (0.55-1.02); Estimated Glomerular Filt Rate 55 ml/min (>60); GFR (African American) 67 ML/MIN (>60); Globulin 3.8 gm/dl (1.3-3.2); Glucose 125 mg/dL (74-106); Potassium 4.1 mmoL/L (3.5-5.1); Sodium 140 mmol/L (136-145); Total Protein,Serum 7.1 gm/dL (6.4-8.2)
[2018-01-31 10:25] LABS: Bacteria,Urine 4+ /lpf; Squamous Epithelial Cell,Urine Occasional #/hpf (0-5)
== END 2018-01-31 14:15 | disposition home or self-care (01) ==
LOC: INF 09:46
PROVIDERS: Family Provider Family Medicine; PCP Family Medicine; Visit Provider Internal Medicine
DX: Z51.11 Encounter for antineoplastic chemotherapy (principal); C19 Malignant neoplasm of rectosigmoid junction; R82.90 Unspecified abnormal findings in urine
CPT/HCPCS: 80053; 81001; 85025; 87086; 87088; 87186; 96413; 96415; 96417; J9035; J9206; Q0166

== ENCOUNTER 2018-02-16 09:29 | Outpatient (CLI) | payer MEDICARE, BC, SELFPAY ==
[2018-02-16 09:31] VITALS: BMI 23.2
[2018-02-16 09:53] LABS: Microscopic, Urine URINE MICROSCOPIC (MICROSCOPIC)
[2018-02-16 09:55] LABS: Appearance,Urine SL CLOUDY (Clear); Bilirubin,Urine Negative (Negative); Blood, Urine TRACE-I (Negative); Color,Urine YELLOW (Yellow); Glucose,Urine (UA) Negative (Negative); Ketones,Urine Negative (Negative); Leukocyte Esterase,Urine 1+ (Negative); Nitrate,Urine POSITIVE (Negative); Protein,Urine Negative (Negative); Urobilinogen,Urine 0.2 EU/dl (0.2)
[2018-02-16 09:55] LABS: Basophils # 0.1 K/mm3 (0-0.2); Basophils % 0.7 % (0.1-2.0); Eosinophils # 0.2 K/mm3 (0.0-0.4); Eosinophils % 3.5 % (0.1-12.0); Hematocrit 36.5 % (37.0-47.0); Hemoglobin 12.1 g/dL (12.2-16.2); Lymphocytes # 2.3 K/mm3 (0.7-4.5); Mean Corpuscular HGB Conc 33.1 g/dL (31.8-35.4); Mean Corpuscular Hemoglobin 33.3 pg (27.0-31.2); Mean Corpuscular Volume 100.8 fl (81-99); Mean Platelet Volume 6.7 fl (7.4-10.4); Monocytes # 0.5 K/mm3 (0.1-1.0); Monocytes % 8.3 % (1.7-9.3); Neutrophils # 3.4 K/mm3 (1.8-7.8); Neutrophils % 52.5 % (37.0-80.0); Platelet Count 268 K/mm3 (142-424); Red Blood Count 3.62 M/mm3 (4.20-5.40); Red Cell Distribution Width 19.1 % (11.5-17.5); White Blood Count 6.5 K/mm3 (4.8-10.8)
[2018-02-16 10:01] LABS: WBC,Urine 20-50 #/hpf (0-3)
[2018-02-16 10:02] LABS: Bacteria,Urine 1+ /lpf; Mucus,Urine Trace /lpf
[2018-02-16 10:03] LABS: Alanine Aminotransferase 18 U/L (12-78); Albumin/Globulin Ratio 0.9 (1.1-1.8); Alkaline Phosphatase 87 U/L (46-116); Aspartate Amino Transferase 10 U/L (15-37); Bilirubin,Total 0.2 mg/dL (0.2-1.0); Blood Urea Nitrogen 11 mg/dL (7-18); Calcium 8.7 mg/dL (8.5-10.1); Carbon Dioxide 27 mmol/L (21.0-32.0); Chloride 105 mmol/L (98-107); Creatinine Clearance Estimated 46 mL/min (0-300); Creatinine,Serum 0.97 mg/dL (0.55-1.02); Estimated Glomerular Filt Rate 57 ml/min (>60); GFR (African American) 69 ML/MIN (>60); Globulin 3.3 gm/dl (1.3-3.2); Glucose 118 mg/dL (74-106); Sodium 140 mmol/L (136-145); Total Protein,Serum 6.3 gm/dL (6.4-8.2)
== END 2018-02-16 11:00 | disposition home or self-care (01) ==
LOC: INF 09:29
PROVIDERS: Family Provider Family Medicine; PCP Family Medicine; Visit Provider Internal Medicine
DX: C18.9 Malignant neoplasm of colon, unspecified (principal); R82.90 Unspecified abnormal findings in urine
CPT/HCPCS: 80053; 81001; 85025; 87086; 87088; 87186; J1642

== ENCOUNTER 2018-02-23 08:59 | Outpatient (CLI) | payer MEDICARE, BC, SELFPAY ==
[2018-02-23 09:02] VITALS: BMI 22.4
[2018-02-23 09:27] LABS: Appearance,Urine CLEAR (Clear); Bilirubin,Urine Negative (Negative); Blood, Urine Negative (Negative); Color,Urine YELLOW (Yellow); Glucose,Urine (UA) Negative (Negative); Ketones,Urine Negative (Negative); Leukocyte Esterase,Urine TRACE (Negative); Microscopic, Urine URINE MICROSCOPIC (MICROSCOPIC); Nitrate,Urine POSITIVE (Negative); Protein,Urine Negative (Negative); Urobilinogen,Urine 0.2 EU/dl (0.2)
[2018-02-23 09:35] LABS: Bacteria,Urine 4+ /lpf
[2018-02-23 09:36] LABS: Basophils # 0.1 K/mm3 (0-0.2); Basophils % 0.7 % (0.1-2.0); Eosinophils # 0.2 K/mm3 (0.0-0.4); Eosinophils % 2.9 % (0.1-12.0); Hematocrit 36.8 % (37.0-47.0); Hemoglobin 11.6 g/dL (12.2-16.2); Lymphocytes # 2.5 K/mm3 (0.7-4.5); Mean Corpuscular HGB Conc 31.6 g/dL (31.8-35.4); Mean Corpuscular Hemoglobin 32.7 pg (27.0-31.2); Mean Corpuscular Volume 103.4 fl (81-99); Mean Platelet Volume 7.1 fl (7.4-10.4); Monocytes # 0.6 K/mm3 (0.1-1.0); Monocytes % 7.1 % (1.7-9.3); Neutrophils # 4.4 K/mm3 (1.8-7.8); Neutrophils % 57.3 % (37.0-80.0); Platelet Count 289 K/mm3 (142-424); Red Blood Count 3.56 M/mm3 (4.20-5.40); Red Cell Distribution Width 19.5 % (11.5-17.5); White Blood Count 7.8 K/mm3 (4.8-10.8)
[2018-02-23 09:50] LABS: Alanine Aminotransferase 19 U/L (12-78); Albumin/Globulin Ratio 0.8 (1.1-1.8); Alkaline Phosphatase 84 U/L (46-116); Aspartate Amino Transferase 14 U/L (15-37); Bilirubin,Total 0.4 mg/dL (0.2-1.0); Blood Urea Nitrogen 16 mg/dL (7-18); Carbon Dioxide 26 mmol/L (21.0-32.0); Chloride 105 mmol/L (98-107); Creatinine Clearance Estimated 43 mL/min (0-300); Creatinine,Serum 1.03 mg/dL (0.55-1.02); Estimated Glomerular Filt Rate 53 ml/min (>60); GFR (African American) 64 ML/MIN (>60); Globulin 3.7 gm/dl (1.3-3.2); Glucose 135 mg/dL (74-106); Sodium 139 mmol/L (136-145); Total Protein,Serum 6.7 gm/dL (6.4-8.2)
== END 2018-02-23 10:00 | disposition home or self-care (01) ==
LOC: INF 09:00
PROVIDERS: Family Provider Family Medicine; PCP Family Medicine; Visit Provider Internal Medicine
DX: C18.9 Malignant neoplasm of colon, unspecified (principal); R82.90 Unspecified abnormal findings in urine
CPT/HCPCS: 80053; 81001; 85025; 87086; 87088; 87186; J1642

== ENCOUNTER 2018-02-28 08:35 | Outpatient (CLI) | payer MEDICARE, BC, SELFPAY ==
[2018-02-28 09:40] VITALS: BP 106/59; PULSE 66; RESP 20; TEMP 36.7; O2SAT 96
[2018-02-28 10:00] VITALS: BP 95/55; PULSE 66; RESP 20; TEMP 36.9; O2SAT 96
[2018-02-28 10:30] VITALS: BP 103/65; PULSE 66; RESP 20; TEMP 36.9; O2SAT 96
[2018-02-28 11:00] VITALS: BP 105/65; PULSE 68; RESP 20; TEMP 36.9; O2SAT 96
[2018-02-28 11:20] VITALS: BP 103/55; PULSE 66; RESP 20; TEMP 36.9; O2SAT 96
[2018-02-28 11:55] VITALS: BP 103/55; PULSE 68; RESP 20; TEMP 36.7; O2SAT 96
== END 2018-02-28 11:55 | disposition home or self-care (01) ==
LOC: INF 08:35
PROVIDERS: Family Provider Family Medicine; PCP Family Medicine; Visit Provider Internal Medicine
DX: Z51.11 Encounter for antineoplastic chemotherapy (principal); C18.9 Malignant neoplasm of colon, unspecified
CPT/HCPCS: 96413; 96415; 96417; J9035; J9206; Q0166

== ENCOUNTER 2018-03-14 08:37 | Outpatient (CLI) | payer MEDICARE, BC, SELFPAY ==
[2018-03-14 08:30] VITALS: BMI 23.2
[2018-03-14 08:55] LABS: Appearance,Urine CLEAR (Clear); Bilirubin,Urine Negative (Negative); Blood, Urine TRACE-I (Negative); Color,Urine YELLOW (Yellow); Glucose,Urine (UA) Negative (Negative); Ketones,Urine Negative (Negative); Leukocyte Esterase,Urine 1+ (Negative); Microscopic, Urine URINE MICROSCOPIC (MICROSCOPIC); Nitrate,Urine POSITIVE (Negative); Protein,Urine Negative (Negative); Specific Gravity, Urine 1.015 (1.005-1.030); Urobilinogen,Urine 0.2 EU/dl (0.2)
[2018-03-14 08:56] LABS: Basophils # 0.1 K/mm3 (0-0.2); Basophils % 0.7 % (0.1-2.0); Eosinophils # 0.3 K/mm3 (0.0-0.4); Eosinophils % 4.1 % (0.1-12.0); Hematocrit 38.5 % (37.0-47.0); Hemoglobin 12.3 g/dL (12.2-16.2); Lymphocytes # 2.7 K/mm3 (0.7-4.5); Lymphocytes % 37.6 K/mm3 (10-50); Mean Corpuscular HGB Conc 31.8 g/dL (31.8-35.4); Mean Corpuscular Hemoglobin 32.6 pg (27.0-31.2); Mean Corpuscular Volume 102.5 fl (81-99); Mean Platelet Volume 7.4 fl (7.4-10.4); Monocytes # 0.5 K/mm3 (0.1-1.0); Monocytes % 6.8 % (1.7-9.3); Neutrophils # 3.6 K/mm3 (1.8-7.8); Neutrophils % 50.8 % (37.0-80.0); Platelet Count 299 K/mm3 (142-424); Red Blood Count 3.76 M/mm3 (4.20-5.40); White Blood Count 7.1 K/mm3 (4.8-10.8)
[2018-03-14 09:06] LABS: Bacteria,Urine 3+ /lpf; Squamous Epithelial Cell,Urine Occasional #/hpf (0-5)
[2018-03-14 09:09] LABS: Alanine Aminotransferase 15 U/L (12-78); Albumin Level 3.5 gm/dL (3.4-5.0); Albumin/Globulin Ratio 0.9 (1.1-1.8); Alkaline Phosphatase 77 U/L (46-116); Anion Gap 11.2 mEq/L (5-15); Aspartate Amino Transferase 13 U/L (15-37); Bilirubin,Total 0.5 mg/dL (0.2-1.0); Blood Urea Nitrogen 19 mg/dL (7-18); Calcium 9.5 mg/dL (8.5-10.1); Carbon Dioxide 28 mmol/L (21.0-32.0); Chloride 106 mmol/L (98-107); Creatinine Clearance Estimated 46 mL/min (0-300); Creatinine,Serum 0.89 mg/dL (0.55-1.02); Estimated Glomerular Filt Rate 63 ml/min (>60); GFR (African American) 76 ML/MIN (>60); Globulin 3.7 gm/dl (1.3-3.2); Glucose 95 mg/dL (74-106); Potassium 4.2 mmoL/L (3.5-5.1); Sodium 141 mmol/L (136-145); Total Protein,Serum 7.2 gm/dL (6.4-8.2)
[2018-03-14 09:53] VITALS: BP 133/64; PULSE 88; RESP 18; TEMP 36.6; O2SAT 98
[2018-03-14 10:23] VITALS: BP 129/67; PULSE 84; RESP 18; O2SAT 99
[2018-03-14 10:53] VITALS: BP 119/68; PULSE 74; RESP 18; O2SAT 97
[2018-03-14 11:23] VITALS: BP 124/64; PULSE 79; RESP 18; O2SAT 98
[2018-03-14 11:53] VITALS: BP 120/67; PULSE 75; RESP 18; O2SAT 98
[2018-03-14 12:25] VITALS: BP 128/62; PULSE 79; RESP 18; O2SAT 98
== END 2018-03-14 12:30 | disposition home or self-care (01) ==
LOC: INF 08:37
PROVIDERS: Family Provider Family Medicine; PCP Family Medicine; Visit Provider Internal Medicine
DX: Z51.11 Encounter for antineoplastic chemotherapy (principal); C18.9 Malignant neoplasm of colon, unspecified; R82.90 Unspecified abnormal findings in urine
CPT/HCPCS: 80053; 81001; 85025; 87086; 87088; 87186; 96413; 96415; 96417; J9035; J9206; Q0166

== ENCOUNTER 2018-03-21 08:39 | Outpatient (CLI) | payer MEDICARE, BC, SELFPAY ==
--- NOTE | 2018-03-21 08:42 | CT_ITS ---
CT abdomen pelvis w con CLINICAL INDICATION: Follow-up metastatic colon cancer ITS.REASON: colon cancer ORDERING PHYSICIAN: Mor Jo MD PATIENT AGE: 72 years COMPARISON: None TECHNIQUE: Axial images obtained with sagittal and coronal reformats. All CT scans at the facility use one or more dose reduction, viz: automated exposure control, ma/kV adjustment per patient size (including targeted exams where dose is matched to indication, i.e. head), or iterative reconstruction technique. PROCEDURE: Oral Contrast: Redicat IV Contrast: 75 mL's of Isovue-370 performed in conjunction with the chest CT. FINDINGS: There are multiple hypodense lesions of the liver the largest in the right hepatic lobe at the dome of the liver measuring 5.6 x 3.5 x 4.3 cm previously 6.4 x 4.5 x 5 cm. Lesion in the right hepatic lobe centrally measures 1.5 cm previously 1.8 cm. No new lesions are evident. Previously there was a real lesion in the lateral aspect of the left hepatic lobe. That area is obscured by overlying artifact on today's exam. The spleen, adrenal glands, and pancreas are unremarkable. There is heterogeneous density of the gallbladder with gallstones with wall thickening. The right renal cyst at 3 cm. No hydronephrosis. No renal or ureteral calculi. No intestinal obstruction or free air. Unremarkable appendix. There has been a prior left partial sigmoidectomy with diverting colostomy in the left lower quadrant. A generous portion of the rectosigmoid is present with diverticulosis of the sigmoid colon and thickening of the sigmoid colon has before. No bony destructive process. IMPRESSION: 1. Decreasing size of hepatic metastasis. 2. Status post partial sigmoidectomy with left lower quadrant colostomy with diverticulosis of the remaining sigmoid colon.
--- NOTE | 2018-03-21 08:42 | CT_ITS ---
CT chest w con HISTORY: Metastatic colon cancer ITS.REASON: colon cancer ORDERING PHYSICIAN: Mor Jo MD PATIENT AGE: 72 years COMPARISON: 12/10/2017 TECHNIQUE: Axial images obtained following the administration of 75 mL of Isovue 370 . Sagittal, and coronal reformatted images are also generated and reviewed. All CT scans at the facility use one or more dose reduction, viz: automated exposure control, ma/kV adjustment per patient size (including targeted exams where dose is matched to indication, i.e. head), or iterative reconstruction technique. FINDINGS: Mild mediastinal adenopathy once again noted. Right paratracheal lymph node is present measuring 2 x 1.3 cm previously 2.5 x 1.6 cm. Precarinal lymph nodes are present and slightly decreased in size. No hilar adenopathy. The heart size without evidence of pericardial effusion. Multiple pulmonary nodules are once again noted. The largest lesion on the right is 4 x 2.2 cm previously 6.3 x 3.2 cm that lesion has some internal process on today's exam with small air-fluid level. There is calcified granuloma in the right lung base. Scattered small nodules are present in the right lower lobe have slightly decreased in size There are multiple small nodules on the left all which have slightly decreased in size. The largest nodule in the left is along the major fissure and measures 1.2 x 0.6 cm previously 1.8 x 1.2 cm. No new nodules are evident. The nodule within the lingula measures 1.3 cm previously at 1.7 cm with some fibrotic change noted in the lingula. No effusions or infiltrates. There is mild wedging of the T9 vertebral body which is unchanged. IMPRESSION: Mediastinal and pulmonary metastasis have shown some improvement with decreasing size compared to the previous exam. Please see above for detail
== END 2018-03-21 09:30 | disposition home or self-care (01) ==
LOC: RAD 08:40
PROVIDERS: Family Provider Family Medicine; PCP Family Medicine; Visit Provider Internal Medicine
DX: C18.9 Malignant neoplasm of colon, unspecified (principal)
CPT/HCPCS: 71260; 74176; J1642; Q9967

== ENCOUNTER 2018-03-28 11:00 | Outpatient (CLI) | payer MEDICARE, BC, SELFPAY ==
[2018-03-28] VITALS (7 sets, daily range): BP systolic 115–122; BP diastolic 65–78; PULSE 66–89; RESP 20; TEMP 36.7–36.9; O2SAT 96–97; BMI 23.0
[2018-03-28 11:38] LABS: Microscopic, Urine URINE MICROSCOPIC (MICROSCOPIC)
[2018-03-28 11:46] LABS: Appearance,Urine CLEAR (Clear); Basophils % 0.6 % (0.1-2.0); Bilirubin,Urine Negative (Negative); Blood, Urine Negative (Negative); Color,Urine YELLOW (Yellow); Eosinophils # 0.3 K/mm3 (0.0-0.4); Eosinophils % 4.8 % (0.1-12.0); Glucose,Urine (UA) Negative (Negative); Hemoglobin 11.8 g/dL (12.2-16.2); Ketones,Urine Negative (Negative); Leukocyte Esterase,Urine TRACE (Negative); Lymphocytes # 2.4 K/mm3 (0.7-4.5); Mean Corpuscular HGB Conc 31.9 g/dL (31.8-35.4); Mean Corpuscular Hemoglobin 33.4 pg (27.0-31.2); Mean Platelet Volume 8.1 fl (7.4-10.4); Monocytes # 0.6 K/mm3 (0.1-1.0); Monocytes % 8.6 % (1.7-9.3); Neutrophils # 3.1 K/mm3 (1.8-7.8); Nitrate,Urine POSITIVE (Negative); Platelet Count 199 K/mm3 (142-424); Protein,Urine Negative (Negative); Red Blood Count 3.52 M/mm3 (4.20-5.40); Red Cell Distribution Width 19.1 % (11.5-17.5); Urobilinogen,Urine 0.2 EU/dl (0.2); White Blood Count 6.3 K/mm3 (4.8-10.8)
[2018-03-28 11:52] LABS: Alanine Aminotransferase 19 U/L (12-78); Albumin Level 3.3 gm/dL (3.4-5.0); Albumin/Globulin Ratio 0.9 (1.1-1.8); Alkaline Phosphatase 85 U/L (46-116); Anion Gap 10.6 mEq/L (5-15); Aspartate Amino Transferase 13 U/L (15-37); Bilirubin,Total 0.4 mg/dL (0.2-1.0); Blood Urea Nitrogen 20 mg/dL (7-18); Carbon Dioxide 28 mmol/L (21.0-32.0); Chloride 106 mmol/L (98-107); Creatinine Clearance Estimated 46 mL/min (0-300); Creatinine,Serum 0.82 mg/dL (0.55-1.02); Estimated Glomerular Filt Rate 69 ml/min (>60); GFR (African American) 83 ML/MIN (>60); Globulin 3.7 gm/dl (1.3-3.2); Glucose 78 mg/dL (74-106); Potassium 4.6 mmoL/L (3.5-5.1); Sodium 140 mmol/L (136-145)
[2018-03-28 12:05] LABS: Bacteria,Urine 1+ /lpf; Squamous Epithelial Cell,Urine Occasional #/hpf (0-5); WBC,Urine Occasional #/hpf (0-3)
== END 2018-03-28 15:20 | disposition home or self-care (01) ==
LOC: INF 11:11
PROVIDERS: Family Provider Family Medicine; PCP Family Medicine; Visit Provider Internal Medicine Medical Oncology
DX: C18.9 Malignant neoplasm of colon, unspecified (principal)
CPT/HCPCS: 80053; 81001; 85025; 96413; 96415; 96417; J9035; J9206; Q0166

== ENCOUNTER 2018-04-11 09:11 | Outpatient (CLI) | payer MEDICARE, BC, SELFPAY ==
[2018-04-11] VITALS (9 sets, daily range): BP systolic 94–118; BP diastolic 55–70; PULSE 68–88; RESP 20; TEMP 36.9–37.1; O2SAT 96; BMI 22.8
[2018-04-11 09:32] LABS: Microscopic, Urine URINE MICROSCOPIC (MICROSCOPIC)
[2018-04-11 09:35] LABS: Appearance,Urine CLEAR (Clear); Bilirubin,Urine Negative (Negative); Blood, Urine TRACE-I (Negative); Color,Urine YELLOW (Yellow); Glucose,Urine (UA) Negative (Negative); Ketones,Urine Negative (Negative); Leukocyte Esterase,Urine TRACE (Negative); Nitrate,Urine POSITIVE (Negative); Protein,Urine Negative (Negative); Urobilinogen,Urine 0.2 EU/dl (0.2)
[2018-04-11 09:38] LABS: Basophils % 0.3 % (0.1-2.0); Eosinophils # 0.2 K/mm3 (0.0-0.4); Eosinophils % 2.3 % (0.1-12.0); Hematocrit 36.3 % (37.0-47.0); Hemoglobin 11.7 g/dL (12.2-16.2); Lymphocytes # 2.2 K/mm3 (0.7-4.5); Lymphocytes % 33.6 K/mm3 (10-50); Mean Corpuscular HGB Conc 32.1 g/dL (31.8-35.4); Mean Corpuscular Hemoglobin 34.5 pg (27.0-31.2); Mean Corpuscular Volume 107.4 fl (81-99); Mean Platelet Volume 8.6 fl (7.4-10.4); Monocytes # 0.3 K/mm3 (0.1-1.0); Monocytes % 4.7 % (1.7-9.3); Neutrophils # 3.9 K/mm3 (1.8-7.8); Neutrophils % 59.1 % (37.0-80.0); Platelet Count 254 K/mm3 (142-424); Red Blood Count 3.38 M/mm3 (4.20-5.40); Red Cell Distribution Width 18.8 % (11.5-17.5); White Blood Count 6.6 K/mm3 (4.8-10.8)
[2018-04-11 09:44] LABS: Bacteria,Urine 4+ /lpf; RBC,Urine Occasional #/hpf (0-3); Squamous Epithelial Cell,Urine Occasional #/hpf (0-5)
[2018-04-11 09:53] LABS: Alanine Aminotransferase 16 U/L (12-78); Albumin Level 3.5 gm/dL (3.4-5.0); Alkaline Phosphatase 68 U/L (46-116); Anion Gap 11.1 mEq/L (5-15); Aspartate Amino Transferase 16 U/L (15-37); Bilirubin,Total 0.6 mg/dL (0.2-1.0); Blood Urea Nitrogen 24 mg/dL (7-18); Calcium 8.4 mg/dL (8.5-10.1); Carbon Dioxide 27 mmol/L (21.0-32.0); Chloride 107 mmol/L (98-107); Creatinine Clearance Estimated 45 mL/min (0-300); Creatinine,Serum 0.85 mg/dL (0.55-1.02); Estimated Glomerular Filt Rate 66 ml/min (>60); GFR (African American) 80 ML/MIN (>60); Globulin 3.4 gm/dl (1.3-3.2); Glucose 101 mg/dL (74-106); Potassium 4.1 mmoL/L (3.5-5.1); Sodium 141 mmol/L (136-145); Total Protein,Serum 6.9 gm/dL (6.4-8.2)
== END 2018-04-11 13:15 | disposition home or self-care (01) ==
LOC: INF 09:11
PROVIDERS: Family Provider Family Medicine; PCP Family Medicine; Visit Provider Internal Medicine Medical Oncology
DX: Z51.11 Encounter for antineoplastic chemotherapy (principal); C18.9 Malignant neoplasm of colon, unspecified; R82.90 Unspecified abnormal findings in urine
CPT/HCPCS: 80053; 81001; 85025; 87086; 87088; 87186; 96413; 96415; 96417; J9035; J9206; Q0166

== ENCOUNTER 2018-04-25 09:12 | Outpatient (CLI) | payer MEDICARE, BC, SELFPAY ==
[2018-04-25 09:12] VITALS: BMI 23.4
[2018-04-25 09:34] LABS: Basophils % 0.7 % (0.1-2.0); Eosinophils # 0.2 K/mm3 (0.0-0.4); Eosinophils % 3.3 % (0.1-12.0); Hematocrit 36.4 % (37.0-47.0); Hemoglobin 11.8 g/dL (12.2-16.2); Lymphocytes # 2.4 K/mm3 (0.7-4.5); Lymphocytes % 43.8 K/mm3 (10-50); Mean Corpuscular HGB Conc 32.4 g/dL (31.8-35.4); Mean Corpuscular Hemoglobin 35.2 pg (27.0-31.2); Mean Corpuscular Volume 108.6 fl (81-99); Mean Platelet Volume 7.4 fl (7.4-10.4); Monocytes # 0.3 K/mm3 (0.1-1.0); Monocytes % 5.3 % (1.7-9.3); Neutrophils # 2.5 K/mm3 (1.8-7.8); Neutrophils % 46.8 % (37.0-80.0); Platelet Count 216 K/mm3 (142-424); Red Blood Count 3.35 M/mm3 (4.20-5.40); Red Cell Distribution Width 18.1 % (11.5-17.5); White Blood Count 5.4 K/mm3 (4.8-10.8)
[2018-04-25 09:37] LABS: Appearance,Urine CLEAR (Clear); Bilirubin,Urine Negative (Negative); Blood, Urine Negative (Negative); Color,Urine YELLOW (Yellow); Glucose,Urine (UA) Negative (Negative); Ketones,Urine Negative (Negative); Leukocyte Esterase,Urine Negative (Negative); Microscopic, Urine URINE MICROSCOPIC (MICROSCOPIC); Nitrate,Urine Negative (Negative); PH,Urine 5.5 (5.0-8.5); Protein,Urine Negative (Negative); Specific Gravity, Urine >= 1.030 (1.005-1.030); Urobilinogen,Urine 0.2 EU/dl (0.2)
[2018-04-25 09:45] LABS: Alanine Aminotransferase 19 U/L (12-78); Albumin Level 3.3 gm/dL (3.4-5.0); Albumin/Globulin Ratio 0.9 (1.1-1.8); Alkaline Phosphatase 78 U/L (46-116); Anion Gap 14.7 mEq/L (5-15); Aspartate Amino Transferase 15 U/L (15-37); Bilirubin,Total 0.4 mg/dL (0.2-1.0); Blood Urea Nitrogen 16 mg/dL (7-18); Calcium 8.5 mg/dL (8.5-10.1); Carbon Dioxide 23 mmol/L (21.0-32.0); Chloride 105 mmol/L (98-107); Creatinine Clearance Estimated 46 mL/min (0-300); Creatinine,Serum 0.96 mg/dL (0.55-1.02); Estimated Glomerular Filt Rate 57 ml/min (>60); GFR (African American) 70 ML/MIN (>60); Globulin 3.5 gm/dl (1.3-3.2); Glucose 150 mg/dL (74-106); Potassium 3.7 mmoL/L (3.5-5.1); Sodium 139 mmol/L (136-145); Total Protein,Serum 6.8 gm/dL (6.4-8.2)
[2018-04-25 09:56] LABS: Bacteria,Urine Trace /lpf
[2018-04-25 10:35] VITALS: BP 145/70; PULSE 68; RESP 20; TEMP 36.9; O2SAT 96
[2018-04-25 11:00] VITALS: BP 106/66; PULSE 85; RESP 20; TEMP 36.9; O2SAT 96
[2018-04-25 11:30] VITALS: BP 108/74; PULSE 68; RESP 20; TEMP 36.9; O2SAT 96
[2018-04-25 12:00] VITALS: BP 115/65; PULSE 68; RESP 20; TEMP 36.9; O2SAT 96
[2018-04-25 12:15] VITALS: BP 116/74; PULSE 66; RESP 20; TEMP 36.9; O2SAT 96
[2018-04-25 12:45] VITALS: BP 117/60; PULSE 68; RESP 20; TEMP 36.9; O2SAT 96
== END 2018-04-25 12:45 | disposition home or self-care (01) ==
LOC: INF 09:12
PROVIDERS: Family Provider Family Medicine; PCP Family Medicine; Visit Provider Internal Medicine Medical Oncology
DX: C18.9 Malignant neoplasm of colon, unspecified (principal); Z51.11 Encounter for antineoplastic chemotherapy
CPT/HCPCS: 80053; 81001; 85025; 96413; 96415; 96417; J9035; J9206; Q0166

== ENCOUNTER 2018-05-09 08:58 | Outpatient (CLI) | payer MEDICARE, BC, SELFPAY ==
[2018-05-09 09:01] VITALS: BMI 23.3
[2018-05-09 09:18] LABS: Microscopic, Urine URINE MICROSCOPIC (MICROSCOPIC)
[2018-05-09 09:21] LABS: Appearance,Urine CLEAR (Clear); Bilirubin,Urine Negative (Negative); Blood, Urine TRACE-L (Negative); Color,Urine YELLOW (Yellow); Glucose,Urine (UA) Negative (Negative); Ketones,Urine Negative (Negative); Leukocyte Esterase,Urine Negative (Negative); Nitrate,Urine Negative (Negative); Protein,Urine Negative (Negative); Specific Gravity, Urine 1.025 (1.005-1.030); Urobilinogen,Urine 0.2 EU/dl (0.2)
[2018-05-09 09:22] LABS: Basophils % 0.3 % (0.1-2.0); Eosinophils # 0.2 K/mm3 (0.0-0.4); Eosinophils % 2.7 % (0.1-12.0); Hematocrit 37.5 % (37.0-47.0); Lymphocytes # 2.5 K/mm3 (0.7-4.5); Lymphocytes % 33.8 K/mm3 (10-50); Mean Corpuscular HGB Conc 32.1 g/dL (31.8-35.4); Mean Corpuscular Hemoglobin 35.2 pg (27.0-31.2); Mean Corpuscular Volume 109.5 fl (81-99); Mean Platelet Volume 7.8 fl (7.4-10.4); Monocytes # 0.3 K/mm3 (0.1-1.0); Monocytes % 4.1 % (1.7-9.3); Neutrophils # 4.4 K/mm3 (1.8-7.8); Neutrophils % 59.1 % (37.0-80.0); Platelet Count 291 K/mm3 (142-424); Red Blood Count 3.42 M/mm3 (4.20-5.40); Red Cell Distribution Width 17.8 % (11.5-17.5); White Blood Count 7.5 K/mm3 (4.8-10.8)
[2018-05-09 09:31] LABS: Bacteria,Urine Trace /lpf; Mucus,Urine 1+ /lpf
[2018-05-09 09:48] LABS: Alanine Aminotransferase 16 U/L (12-78); Albumin Level 3.5 gm/dL (3.4-5.0); Albumin/Globulin Ratio 0.9 (1.1-1.8); Alkaline Phosphatase 67 U/L (46-116); Anion Gap 13.7 mEq/L (5-15); Aspartate Amino Transferase 16 U/L (15-37); Bilirubin,Total 0.7 mg/dL (0.2-1.0); Blood Urea Nitrogen 21 mg/dL (7-18); Calcium 8.8 mg/dL (8.5-10.1); Carbon Dioxide 25 mmol/L (21.0-32.0); Chloride 104 mmol/L (98-107); Creatinine Clearance Estimated 46 mL/min (0-300); Creatinine,Serum 0.94 mg/dL (0.55-1.02); Estimated Glomerular Filt Rate 59 ml/min (>60); GFR (African American) 71 ML/MIN (>60); Globulin 3.8 gm/dl (1.3-3.2); Glucose 101 mg/dL (74-106); Potassium 3.7 mmoL/L (3.5-5.1); Sodium 139 mmol/L (136-145); Total Protein,Serum 7.3 gm/dL (6.4-8.2)
[2018-05-09 10:29] VITALS: BP 126/81; PULSE 87; RESP 18; TEMP 36.6; O2SAT 96
[2018-05-09 10:59] VITALS: BP 132/80; PULSE 75; RESP 20; O2SAT 97
[2018-05-09 11:29] VITALS: BP 132/70; PULSE 75; RESP 20; O2SAT 97
[2018-05-09 11:59] VITALS: BP 140/72; PULSE 76; RESP 20; O2SAT 96
[2018-05-09 12:29] VITALS: BP 130/73; PULSE 67; RESP 18; O2SAT 96
[2018-05-09 13:00] VITALS: BP 134/75; PULSE 72; RESP 18; O2SAT 96
== END 2018-05-09 13:06 | disposition home or self-care (01) ==
LOC: INF 08:58
PROVIDERS: Visit Provider Internal Medicine Medical Oncology
DX: Z51.11 Encounter for antineoplastic chemotherapy (principal); C18.9 Malignant neoplasm of colon, unspecified
CPT/HCPCS: 80053; 81001; 85025; 96413; 96415; 96417; J1642; J9035; J9206; Q0166

== ENCOUNTER 2018-05-30 08:40 | Outpatient (CLI) | payer MEDICARE, BC, SELFPAY ==
[2018-05-30 08:40] VITALS: BMI 23.2
[2018-05-30 09:11] LABS: Basophils # 0.1 K/mm3 (0-0.2); Basophils % 0.7 % (0.1-2.0); Eosinophils # 0.2 K/mm3 (0.0-0.4); Hematocrit 36.6 % (37.0-47.0); Hemoglobin 11.7 g/dL (12.2-16.2); Lymphocytes # 2.3 K/mm3 (0.7-4.5); Lymphocytes % 22.2 % (10-50); Mean Corpuscular Hemoglobin 35.2 pg (27.0-31.2); Mean Corpuscular Volume 110.1 fl (81-99); Mean Platelet Volume 7.2 fl (7.4-10.4); Monocytes # 0.7 K/mm3 (0.1-1.0); Monocytes % 6.5 % (1.7-9.3); Neutrophils # 7.2 K/mm3 (1.8-7.8); Neutrophils % 68.7 % (37.0-80.0); Platelet Count 272 K/mm3 (142-424); Red Blood Count 3.33 M/mm3 (4.20-5.40); Red Cell Distribution Width 17.9 % (11.5-17.5); White Blood Count 10.5 K/mm3 (4.8-10.8)
[2018-05-30 09:22] LABS: Alanine Aminotransferase 22 U/L (12-78); Albumin Level 3.1 gm/dL (3.4-5.0); Albumin/Globulin Ratio 0.9 (1.1-1.8); Alkaline Phosphatase 85 U/L (46-116); Anion Gap 14.2 mEq/L (5-15); Aspartate Amino Transferase 15 U/L (15-37); Bilirubin,Total 0.5 mg/dL (0.2-1.0); Blood Urea Nitrogen 11 mg/dL (7-18); Calcium 8.3 mg/dL (8.5-10.1); Carbon Dioxide 24 mmol/L (21.0-32.0); Chloride 105 mmol/L (98-107); Creatinine Clearance Estimated 45 mL/min (50-200); Creatinine,Serum 0.82 mg/dL (0.55-1.02); Estimated Glomerular Filt Rate 69 ml/min (>60); GFR (African American) 83 ML/MIN (>60); Globulin 3.6 gm/dl (1.3-3.2); Glucose 95 mg/dL (74-106); Potassium 4.2 mmoL/L (3.5-5.1); Sodium 139 mmol/L (136-145); Total Protein,Serum 6.7 gm/dL (6.4-8.2)
[2018-05-30 10:05] LABS: Microscopic, Urine URINE MICROSCOPIC (MICROSCOPIC)
[2018-05-30 10:07] LABS: Appearance,Urine CLEAR (Clear); Bilirubin,Urine Negative (Negative); Blood, Urine Negative (Negative); Color,Urine YELLOW (Yellow); Glucose,Urine (UA) Negative (Negative); Ketones,Urine Negative (Negative); Leukocyte Esterase,Urine Negative (Negative); Nitrate,Urine Negative (Negative); PH,Urine 5.5 (5.0-8.5); Protein,Urine Negative (Negative); Specific Gravity, Urine 1.015 (1.005-1.030); Urobilinogen,Urine 0.2 EU/dl (0.2)
[2018-05-30 10:21] LABS: Bacteria,Urine 4+ /lpf; Squamous Epithelial Cell,Urine Occasional #/hpf (0-5)
[2018-05-30 10:55] VITALS: BP 93/52; PULSE 94; RESP 20; TEMP 36.9; O2SAT 96
[2018-05-30 11:30] VITALS: BP 114/52; PULSE 70; RESP 20; TEMP 36.9; O2SAT 96
[2018-05-30 12:00] VITALS: BP 112/52; PULSE 68; RESP 20; TEMP 36.9; O2SAT 96
[2018-05-30 12:30] VITALS: BP 106/65; PULSE 68; RESP 20; TEMP 36.9; O2SAT 96
[2018-05-30 13:10] VITALS: BP 117/65; PULSE 68; RESP 20; TEMP 36.9; O2SAT 96
== END 2018-05-30 13:10 | disposition home or self-care (01) ==
LOC: INF 08:48
PROVIDERS: Visit Provider Internal Medicine Medical Oncology
DX: Z51.11 Encounter for antineoplastic chemotherapy (principal); C18.9 Malignant neoplasm of colon, unspecified; R82.90 Unspecified abnormal findings in urine
CPT/HCPCS: 80053; 81001; 85025; 87081; 87086; 87088; 87186; 96413; 96415; 96417; J9035; J9206; Q0166

== ENCOUNTER 2018-06-06 09:07 | Outpatient (CLI) | payer MEDICARE, BC, SELFPAY ==
--- NOTE | 2018-06-06 09:19 | CT_ITS ---
CT abdomen pelvis w con CLINICAL INDICATION: Follow-up metastatic colon cancer ITS.REASON: COLON CA ORDERING PHYSICIAN: Johana Gupta MD PATIENT AGE: 73 years COMPARISON: 03/21/2018 TECHNIQUE: Axial images obtained with sagittal and coronal reformats. All CT scans at the facility use one or more dose reduction, viz: automated exposure control, ma/kV adjustment per patient size (including targeted exams where dose is matched to indication, i.e. head), or iterative reconstruction technique. PROCEDURE: Oral Contrast: Redicat IV Contrast: 75 mL of Isovue-370 performed in conjunction with chest CT. FINDINGS: Multiple liver lesions are once again noted the largest of which is in the hepatic dome measuring 5.4 x 3.6 cm. There are smaller satellite nodules around this lesion which is not significantly changed. There is an isodense lesion in the lateral segment of the left hepatic lobe 1.3 x 1.2 cm which was present previously but is now somewhat more prominent previously measuring 1.2 x 0.9 cm. The spleen and adrenal glands are unremarkable as is the pancreas. There is a 3.4 cm right renal cyst. The gallbladder wall is somewhat thickened with heterogeneous density of the gallbladder once again noted. Left lower quadrant colostomy noted. Postsurgical changes of the remaining sigmoid colon with multiple sigmoid diverticula. No pelvic mass abnormal fluid collections or focal inflammatory change in the pelvis. Question of prior hysterectomy. No acute bony anomalies. No obvious bony lytic lesions. IMPRESSION: 1. Most of the liver lesions are stable. There is one lesion in the medial segment left hepatic lobe which is somewhat more prominent from the previous study suggesting enlarging metastatic focus at this area. 2. Postsurgical changes from prior partial sigmoidectomy with left lower quadrant colostomy with diverticulosis of the remaining sigmoid colon.
--- NOTE | 2018-06-06 09:19 | CT_ITS ---
CT chest w con HISTORY: Follow-up metastatic colon cancer ITS.REASON: COLON CA ORDERING PHYSICIAN: Johana Gupta MD PATIENT AGE: 73 years COMPARISON: 03/21/2018 TECHNIQUE: Axial images obtained following the administration of 75 mL of Isovue 370 . Sagittal, and coronal reformatted images are also generated and reviewed. All CT scans at the facility use one or more dose reduction, viz: automated exposure control, ma/kV adjustment per patient size (including targeted exams where dose is matched to indication, i.e. head), or iterative reconstruction technique. FINDINGS: Right lobe of the thyroid gland is slightly enlarged with heterogeneous enhancement nonspecific. There are scattered small lymph nodes in the mediastinum largest in the right anterior paratracheal region and 1.6 x 0.8 cm previously 2 x 1.3 cm. No evidence of aortic aneurysm or central pulmonary embolus. No pericardial effusion and. Multiple small noncalcified pulmonary nodules are once again noted. A cavitating lesion is present in the right upper lobe not significant changed in size or appearance measuring 4 x 2 cm with central cavitation. An adjacent parenchymal opacity is noted posterior and medial to the larger lesion at 1.5 cm slightly smaller previously 2 cm. Smaller groundglass densities noted in the right upper lobe anteriorly which is stable. Noncalcified nodular opacity in the right middle lobe and 7 mm not significant change. Subpleural opacity right lower lung zone posterior laterally at 8 mm unchanged. No effusions. No acute bony anomalies. IMPRESSION: Overall stable CT appearance of the chest. Multiple pulmonary nodules as well as cavitating lesion in the right upper lobe overall not significant changed consistent with stable appearance of metastatic disease. Small mediastinal lymph node is once again noted slightly smaller.
== END 2018-06-06 10:02 | disposition home or self-care (01) ==
LOC: RAD 09:08 → INF 09:45
PROVIDERS: PCP Family Medicine; Visit Provider Internal Medicine Medical Oncology
DX: C18.6 Malignant neoplasm of descending colon (principal)
CPT/HCPCS: 71260; 74177; J1642; Q9967

== ENCOUNTER 2018-06-13 08:37 | Outpatient (CLI) | payer MEDICARE, BC, SELFPAY ==
[2018-06-13] VITALS (7 sets, daily range): BP systolic 102–123; BP diastolic 50–74; PULSE 68; RESP 20; TEMP 36.9; O2SAT 95–96; BMI 23.2
[2018-06-13 09:07] LABS: Microscopic, Urine URINE MICROSCOPIC (MICROSCOPIC)
[2018-06-13 09:10] LABS: Appearance,Urine SL CLOUDY (Clear); Basophils % 0.3 % (0.1-2.0); Bilirubin,Urine Negative (Negative); Blood, Urine Negative (Negative); Color,Urine YELLOW (Yellow); Eosinophils # 0.5 K/mm3 (0.0-0.4); Eosinophils % 5.7 % (0.1-12.0); Glucose,Urine (UA) Negative (Negative); Hematocrit 34.7 % (37.0-47.0); Hemoglobin 11.2 g/dL (12.2-16.2); Ketones,Urine Negative (Negative); Leukocyte Esterase,Urine Negative (Negative); Lymphocytes # 2.4 K/mm3 (0.7-4.5); Lymphocytes % 29.8 % (10-50); Mean Corpuscular HGB Conc 32.2 g/dL (31.8-35.4); Mean Corpuscular Volume 108.7 fl (81-99); Mean Platelet Volume 7.2 fl (7.4-10.4); Monocytes # 0.3 K/mm3 (0.1-1.0); Monocytes % 3.3 % (1.7-9.3); Neutrophils # 4.9 K/mm3 (1.8-7.8); Neutrophils % 60.9 % (37.0-80.0); Nitrate,Urine Negative (Negative); Platelet Count 437 K/mm3 (142-424); Protein,Urine Negative (Negative); Red Blood Count 3.19 M/mm3 (4.20-5.40); Red Cell Distribution Width 18.3 % (11.5-17.5); Specific Gravity, Urine >= 1.030 (1.005-1.030); Urobilinogen,Urine 0.2 EU/dl (0.2); White Blood Count 8.1 K/mm3 (4.8-10.8)
[2018-06-13 09:18] LABS: Bacteria,Urine 2+ /lpf; Mucus,Urine 2+ /lpf
[2018-06-13 09:23] LABS: Alanine Aminotransferase 18 U/L (12-78); Albumin Level 3.4 gm/dL (3.4-5.0); Albumin/Globulin Ratio 0.9 (1.1-1.8); Alkaline Phosphatase 67 U/L (46-116); Anion Gap 15.5 mEq/L (5-15); Aspartate Amino Transferase 12 U/L (15-37); Bilirubin,Total 0.4 mg/dL (0.2-1.0); Blood Urea Nitrogen 20 mg/dL (7-18); Calcium 8.7 mg/dL (8.5-10.1); Carbon Dioxide 24 mmol/L (21.0-32.0); Chloride 103 mmol/L (98-107); Creatinine Clearance Estimated 45 mL/min (50-200); Estimated Glomerular Filt Rate 62 ml/min (>60); GFR (African American) 75 ML/MIN (>60); Globulin 3.6 gm/dl (1.3-3.2); Glucose 104 mg/dL (74-106); Potassium 3.5 mmoL/L (3.5-5.1); Sodium 139 mmol/L (136-145)
== END 2018-06-13 13:01 | disposition home or self-care (01) ==
LOC: INF 08:37
PROVIDERS: Visit Provider Internal Medicine Medical Oncology
DX: Z51.11 Encounter for antineoplastic chemotherapy (principal); C18.9 Malignant neoplasm of colon, unspecified; R82.90 Unspecified abnormal findings in urine
CPT/HCPCS: 80053; 81001; 85025; 87086; 96413; 96415; 96417; J8501; J9035; J9206; Q0166

== ENCOUNTER 2018-07-04 08:33 | Outpatient (CLI) | payer MEDICARE, BC, SELFPAY ==
[2018-07-04 08:29] VITALS: BMI 22.8
[2018-07-04 08:48] LABS: Microscopic, Urine URINE MICROSCOPIC (MICROSCOPIC)
[2018-07-04 08:49] LABS: Appearance,Urine CLEAR (Clear); Bilirubin,Urine Negative (Negative); Blood, Urine Negative (Negative); Color,Urine YELLOW (Yellow); Glucose,Urine (UA) Negative (Negative); Ketones,Urine Negative (Negative); Leukocyte Esterase,Urine Negative (Negative); Nitrate,Urine Negative (Negative); Protein,Urine Negative (Negative); Specific Gravity, Urine 1.025 (1.005-1.030); Urobilinogen,Urine 0.2 EU/dl (0.2)
[2018-07-04 08:51] LABS: Basophils % 0.3 % (0.1-2.0); Eosinophils # 0.2 K/mm3 (0.0-0.4); Hematocrit 38.2 % (37.0-47.0); Hemoglobin 11.9 g/dL (12.2-16.2); Lymphocytes # 2.5 K/mm3 (0.7-4.5); Lymphocytes % 22.2 % (10-50); Mean Corpuscular HGB Conc 31.2 g/dL (31.8-35.4); Mean Corpuscular Hemoglobin 34.8 pg (27.0-31.2); Mean Corpuscular Volume 111.6 fl (81-99); Mean Platelet Volume 7.5 fl (7.4-10.4); Monocytes # 0.6 K/mm3 (0.1-1.0); Monocytes % 5.5 % (1.7-9.3); Neutrophils # 7.9 K/mm3 (1.8-7.8); Platelet Count 253 K/mm3 (142-424); Red Blood Count 3.43 M/mm3 (4.20-5.40); Red Cell Distribution Width 16.7 % (11.5-17.5); White Blood Count 11.3 K/mm3 (4.8-10.8)
[2018-07-04 08:56] LABS: Bacteria,Urine 2+ /lpf; Squamous Epithelial Cell,Urine Occasional #/hpf (0-5)
[2018-07-04 09:02] LABS: Alanine Aminotransferase 29 U/L (12-78); Albumin Level 3.5 gm/dL (3.4-5.0); Alkaline Phosphatase 85 U/L (46-116); Anion Gap 13.2 mEq/L (5-15); Aspartate Amino Transferase 24 U/L (15-37); Bilirubin,Total 0.2 mg/dL (0.2-1.0); Blood Urea Nitrogen 19 mg/dL (7-18); Carbon Dioxide 26 mmol/L (21.0-32.0); Chloride 104 mmol/L (98-107); Creatinine Clearance Estimated 45 mL/min (50-200); Creatinine,Serum 0.85 mg/dL (0.55-1.02); Estimated Glomerular Filt Rate 66 ml/min (>60); GFR (African American) 80 ML/MIN (>60); Globulin 3.6 gm/dl (1.3-3.2); Glucose 95 mg/dL (74-106); Potassium 4.2 mmoL/L (3.5-5.1); Sodium 139 mmol/L (136-145); Total Protein,Serum 7.1 gm/dL (6.4-8.2)
[2018-07-04 09:50] VITALS: BP 104/74; PULSE 78; RESP 20; TEMP 36.9; O2SAT 95
[2018-07-04 10:20] VITALS: BP 95/40; PULSE 68; RESP 20; TEMP 36.9; O2SAT 95
[2018-07-04 10:50] VITALS: BP 96/48; PULSE 68; RESP 20; TEMP 36.9; O2SAT 95
[2018-07-04 11:20] VITALS: BP 101/48; PULSE 70; RESP 20; TEMP 36.9; O2SAT 95
[2018-07-04 11:35] VITALS: BP 99/48; PULSE 68; RESP 20; TEMP 36.9; O2SAT 95
[2018-07-04 12:35] VITALS: BP 115/54; PULSE 68; RESP 20; TEMP 36.9; O2SAT 95
== END 2018-07-04 12:35 | disposition home or self-care (01) ==
LOC: INF 08:33
PROVIDERS: Visit Provider Internal Medicine Medical Oncology
DX: C18.9 Malignant neoplasm of colon, unspecified (principal); Z79.899 Other long term (current) drug therapy
CPT/HCPCS: 80053; 81001; 85025; 87086; 87088; 87186; 96413; 96415; 96417; J8501; J9035; J9206; Q0166

== ENCOUNTER 2018-07-18 08:30 | Outpatient (CLI) | payer MEDICARE, BC, SELFPAY ==
[2018-07-18] VITALS (7 sets, daily range): BP systolic 106–133; BP diastolic 54–82; PULSE 63–78; RESP 18; TEMP 36.4; O2SAT 96–97; BMI 23.4
[2018-07-18 09:03] LABS: Microscopic, Urine URINE MICROSCOPIC (MICROSCOPIC)
[2018-07-18 09:04] LABS: Appearance,Urine CLEAR (Clear); Basophils # 0.1 K/mm3 (0-0.2); Basophils % 0.7 % (0.1-2.0); Bilirubin,Urine Negative (Negative); Blood, Urine Negative (Negative); Color,Urine YELLOW (Yellow); Eosinophils # 0.3 K/mm3 (0.0-0.4); Eosinophils % 4.9 % (0.1-12.0); Glucose,Urine (UA) Negative (Negative); Hematocrit 36.2 % (37.0-47.0); Hemoglobin 11.6 g/dL (12.2-16.2); Ketones,Urine Negative (Negative); Leukocyte Esterase,Urine Negative (Negative); Lymphocytes # 2.3 K/mm3 (0.7-4.5); Lymphocytes % 34.6 % (10-50); Mean Corpuscular HGB Conc 32.2 g/dL (31.8-35.4); Mean Corpuscular Hemoglobin 35.8 pg (27.0-31.2); Mean Corpuscular Volume 111.3 fl (81-99); Mean Platelet Volume 7.5 fl (7.4-10.4); Monocytes # 0.4 K/mm3 (0.1-1.0); Monocytes % 6.3 % (1.7-9.3); Neutrophils # 3.6 K/mm3 (1.8-7.8); Neutrophils % 53.5 % (37.0-80.0); Nitrate,Urine Negative (Negative); Platelet Count 284 K/mm3 (142-424); Protein,Urine Negative (Negative); Red Blood Count 3.25 M/mm3 (4.20-5.40); Red Cell Distribution Width 17.9 % (11.5-17.5); Specific Gravity, Urine 1.015 (1.005-1.030); Urobilinogen,Urine 0.2 EU/dl (0.2); White Blood Count 6.7 K/mm3 (4.8-10.8)
[2018-07-18 09:11] LABS: Bacteria,Urine Trace /lpf; Squamous Epithelial Cell,Urine Occasional #/hpf (0-5); WBC,Urine Occasional #/hpf (0-3)
[2018-07-18 09:16] LABS: Alanine Aminotransferase 21 U/L (12-78); Albumin Level 3.3 gm/dL (3.4-5.0); Albumin/Globulin Ratio 0.9 (1.1-1.8); Alkaline Phosphatase 64 U/L (46-116); Anion Gap 12.7 mEq/L (5-15); Aspartate Amino Transferase 14 U/L (15-37); Bilirubin,Total 0.3 mg/dL (0.2-1.0); Blood Urea Nitrogen 13 mg/dL (7-18); Calcium 8.6 mg/dL (8.5-10.1); Carbon Dioxide 26 mmol/L (21.0-32.0); Chloride 104 mmol/L (98-107); Creatinine Clearance Estimated 46 mL/min (50-200); Creatinine,Serum 0.88 mg/dL (0.55-1.02); Estimated Glomerular Filt Rate 63 ml/min (>60); GFR (African American) 77 ML/MIN (>60); Globulin 3.7 gm/dl (1.3-3.2); Glucose 100 mg/dL (74-106); Potassium 3.7 mmoL/L (3.5-5.1); Sodium 139 mmol/L (136-145)
== END 2018-07-18 13:00 | disposition home or self-care (01) ==
LOC: INF 08:38
PROVIDERS: Visit Provider Internal Medicine Medical Oncology
DX: C18.9 Malignant neoplasm of colon, unspecified (principal)
CPT/HCPCS: 80053; 81001; 85025; 96413; 96415; 96417; J9035; J9206; Q0166

== ENCOUNTER → 2018-08-01 08:31 | Outpatient (CLI) | payer MEDICARE, BC, SELFPAY ==
[2018-08-01 08:32] VITALS: BMI 23.4
[2018-08-01 08:47] LABS: Microscopic, Urine URINE MICROSCOPIC (MICROSCOPIC)
[2018-08-01 08:50] LABS: Basophils # 0.1 K/mm3 (0-0.2); Basophils % 0.7 % (0.1-2.0); Eosinophils # 0.3 K/mm3 (0.0-0.4); Hemoglobin 11.6 g/dL (12.2-16.2); Lymphocytes % 46.7 % (10-50); Mean Corpuscular HGB Conc 30.5 g/dL (31.8-35.4); Mean Corpuscular Hemoglobin 34.5 pg (27.0-31.2); Mean Corpuscular Volume 113.1 fl (81-99); Mean Platelet Volume 7.7 fl (7.4-10.4); Monocytes # 0.4 K/mm3 (0.1-1.0); Monocytes % 6.7 % (1.7-9.3); Neutrophils # 2.7 K/mm3 (1.8-7.8); Neutrophils % 41.8 % (37.0-80.0); Platelet Count 320 K/mm3 (142-424); Red Blood Count 3.36 M/mm3 (4.20-5.40); Red Cell Distribution Width 17.6 % (11.5-17.5); White Blood Count 6.4 K/mm3 (4.8-10.8)
[2018-08-01 08:51] LABS: Appearance,Urine CLEAR (Clear); Bilirubin,Urine Negative (Negative); Blood, Urine Negative (Negative); Color,Urine YELLOW (Yellow); Glucose,Urine (UA) Negative (Negative); Ketones,Urine Negative (Negative); Leukocyte Esterase,Urine Negative (Negative); Nitrate,Urine Negative (Negative); Protein,Urine Negative (Negative); Specific Gravity, Urine 1.015 (1.005-1.030); Urobilinogen,Urine 0.2 EU/dl (0.2)
[2018-08-01 09:05] LABS: Alanine Aminotransferase 35 U/L (12-78); Albumin Level 3.3 gm/dL (3.4-5.0); Albumin/Globulin Ratio 0.8 (1.1-1.8); Alkaline Phosphatase 99 U/L (46-116); Anion Gap 13.2 mEq/L (5-15); Aspartate Amino Transferase 20 U/L (15-37); Bilirubin,Total 0.2 mg/dL (0.2-1.0); Blood Urea Nitrogen 17 mg/dL (7-18); Calcium 9.3 mg/dL (8.5-10.1); Carbon Dioxide 26 mmol/L (21.0-32.0); Chloride 103 mmol/L (98-107); Creatinine Clearance Estimated 46 mL/min (50-200); Creatinine,Serum 0.94 mg/dL (0.55-1.02); Estimated Glomerular Filt Rate 59 ml/min (>60); GFR (African American) 71 ML/MIN (>60); Globulin 4.1 gm/dl (1.3-3.2); Glucose 103 mg/dL (74-106); Potassium 4.2 mmoL/L (3.5-5.1); Sodium 138 mmol/L (136-145); Total Protein,Serum 7.4 gm/dL (6.4-8.2)
[2018-08-01 09:09] LABS: Bacteria,Urine 1+ /lpf; Squamous Epithelial Cell,Urine Occasional #/hpf (0-5); WBC,Urine Occasional #/hpf (0-3)
[2018-08-01 10:15] VITALS: BP 105/54; PULSE 81; RESP 20; TEMP 36.9; O2SAT 95
[2018-08-01 10:45] VITALS: BP 106/58; PULSE 82; RESP 20; TEMP 36.9; O2SAT 95
[2018-08-01 11:15] VITALS: BP 108/68; PULSE 68; RESP 20; TEMP 36.9; O2SAT 95
[2018-08-01 11:45] VITALS: BP 108/74; PULSE 68; RESP 20; TEMP 36.9; O2SAT 95
[2018-08-01 12:15] VITALS: BP 103/74; PULSE 68; RESP 20; TEMP 36.9; O2SAT 95
[2018-08-01 12:25] VITALS: BP 108/74; PULSE 68; RESP 20; TEMP 36.9; O2SAT 95
== END ==
PROVIDERS: Visit Provider Internal Medicine Medical Oncology
DX: Z51.11 Encounter for antineoplastic chemotherapy (principal); C18.9 Malignant neoplasm of colon, unspecified
CPT/HCPCS: 80053; 81001; 85025; 96413; 96415; 96417; J9035; J9206; Q0166

== ENCOUNTER 2018-08-15 08:34 | Outpatient (CLI) | payer MEDICARE, BC, SELFPAY ==
[2018-08-15 08:38] VITALS: BMI 23.1
[2018-08-15 08:57] LABS: Microscopic, Urine URINE MICROSCOPIC (MICROSCOPIC)
[2018-08-15 08:58] LABS: Basophils # 0.1 K/mm3 (0-0.2); Basophils % 0.9 % (0.1-2.0); Eosinophils # 0.2 K/mm3 (0.0-0.4); Eosinophils % 2.9 % (0.1-12.0); Hematocrit 36.9 % (37.0-47.0); Lymphocytes # 2.5 K/mm3 (0.7-4.5); Lymphocytes % 34.6 % (10-50); Mean Corpuscular HGB Conc 32.6 g/dL (31.8-35.4); Mean Corpuscular Hemoglobin 35.6 pg (27.0-31.2); Mean Corpuscular Volume 109.3 fl (81-99); Mean Platelet Volume 7.4 fl (7.4-10.4); Monocytes # 0.5 K/mm3 (0.1-1.0); Monocytes % 6.5 % (1.7-9.3); Neutrophils # 3.9 K/mm3 (1.8-7.8); Neutrophils % 55.2 % (37.0-80.0); Platelet Count 287 K/mm3 (142-424); Red Blood Count 3.38 M/mm3 (4.20-5.40); Red Cell Distribution Width 19.4 % (11.5-17.5); White Blood Count 7.1 K/mm3 (4.8-10.8)
[2018-08-15 08:59] LABS: Appearance,Urine CLEAR (Clear); Bilirubin,Urine Negative (Negative); Blood, Urine Negative (Negative); Color,Urine YELLOW (Yellow); Glucose,Urine (UA) Negative (Negative); Ketones,Urine Negative (Negative); Leukocyte Esterase,Urine Negative (Negative); Nitrate,Urine Negative (Negative); Protein,Urine Negative (Negative); Urobilinogen,Urine 0.2 EU/dl (0.2)
[2018-08-15 09:07] LABS: Bacteria,Urine Trace /lpf; Mucus,Urine 1+ /lpf; Squamous Epithelial Cell,Urine Occasional #/hpf (0-5); WBC,Urine Occasional #/hpf (0-3)
[2018-08-15 09:15] LABS: Alanine Aminotransferase 15 U/L (12-78); Albumin Level 3.7 gm/dL (3.4-5.0); Alkaline Phosphatase 78 U/L (46-116); Anion Gap 14.9 mEq/L (5-15); Aspartate Amino Transferase 11 U/L (15-37); Bilirubin,Total 0.3 mg/dL (0.2-1.0); Blood Urea Nitrogen 23 mg/dL (7-18); Calcium 9.1 mg/dL (8.5-10.1); Carbon Dioxide 25 mmol/L (21.0-32.0); Chloride 104 mmol/L (98-107); Creatinine Clearance Estimated 45 mL/min (50-200); Creatinine,Serum 0.94 mg/dL (0.55-1.02); Estimated Glomerular Filt Rate 59 ml/min (>60); GFR (African American) 71 ML/MIN (>60); Globulin 3.7 gm/dl (1.3-3.2); Glucose 102 mg/dL (74-106); Potassium 3.9 mmoL/L (3.5-5.1); Sodium 140 mmol/L (136-145); Total Protein,Serum 7.4 gm/dL (6.4-8.2)
[2018-08-15 09:53] VITALS: BP 107/64; PULSE 84; RESP 18; TEMP 36.3; O2SAT 96
[2018-08-15 10:23] VITALS: BP 107/62; PULSE 80; RESP 20; O2SAT 96
[2018-08-15 10:53] VITALS: BP 115/53; PULSE 67; RESP 20; O2SAT 96
[2018-08-15 11:23] VITALS: BP 128/66; PULSE 75; RESP 18; O2SAT 95
[2018-08-15 11:53] VITALS: BP 120/64; PULSE 73; RESP 18; O2SAT 96
[2018-08-15 12:25] VITALS: BP 120/65; PULSE 74; RESP 20; O2SAT 96
== END 2018-08-15 12:30 | disposition home or self-care (01) ==
LOC: INF 08:34
PROVIDERS: Internal Medicine Medical Oncology; Visit Provider Internal Medicine Hematology & Oncology
DX: Z51.11 Encounter for antineoplastic chemotherapy (principal); C18.9 Malignant neoplasm of colon, unspecified
CPT/HCPCS: 80053; 81001; 85025; 96413; 96415; 96417; J1642; J8501; J9035; J9206; Q0166

== ENCOUNTER 2018-08-29 08:45 | Outpatient (CLI) | payer MEDICARE, BC, SELFPAY ==
[2018-08-29] VITALS (7 sets, daily range): BP systolic 95–117; BP diastolic 43–60; PULSE 69–91; RESP 18; TEMP 36.2–36.6; O2SAT 96–98; BMI 23.0
[2018-08-29 09:18] LABS: Microscopic, Urine URINE MICROSCOPIC (MICROSCOPIC)
[2018-08-29 09:21] LABS: Basophils % 0.5 % (0.1-2.0); Eosinophils # 0.2 K/mm3 (0.0-0.4); Eosinophils % 2.6 % (0.1-12.0); Hematocrit 35.5 % (37.0-47.0); Hemoglobin 11.7 g/dL (12.2-16.2); Lymphocytes % 24.2 % (10-50); Mean Corpuscular HGB Conc 32.9 g/dL (31.8-35.4); Mean Corpuscular Hemoglobin 36.1 pg (27.0-31.2); Mean Corpuscular Volume 109.6 fl (81-99); Mean Platelet Volume 7.1 fl (7.4-10.4); Monocytes # 0.5 K/mm3 (0.1-1.0); Monocytes % 5.9 % (1.7-9.3); Neutrophils # 5.5 K/mm3 (1.8-7.8); Neutrophils % 66.8 % (37.0-80.0); Platelet Count 230 K/mm3 (142-424); Red Blood Count 3.23 M/mm3 (4.20-5.40); Red Cell Distribution Width 18.3 % (11.5-17.5); White Blood Count 8.2 K/mm3 (4.8-10.8)
[2018-08-29 09:23] LABS: Appearance,Urine CLEAR (Clear); Bilirubin,Urine Negative (Negative); Blood, Urine Negative (Negative); Color,Urine YELLOW (Yellow); Glucose,Urine (UA) Negative (Negative); Ketones,Urine Negative (Negative); Leukocyte Esterase,Urine 1+ (Negative); Nitrate,Urine Negative (Negative); Protein,Urine Negative (Negative); Specific Gravity, Urine 1.025 (1.005-1.030); Urobilinogen,Urine 0.2 EU/dl (0.2)
[2018-08-29 09:36] LABS: Alanine Aminotransferase 24 U/L (12-78); Albumin Level 3.5 gm/dL (3.4-5.0); Albumin/Globulin Ratio 0.9 (1.1-1.8); Alkaline Phosphatase 101 U/L (46-116); Anion Gap 14.9 mEq/L (5-15); Aspartate Amino Transferase 20 U/L (15-37); Bilirubin,Total 0.2 mg/dL (0.2-1.0); Blood Urea Nitrogen 17 mg/dL (7-18); Calcium 9.3 mg/dL (8.5-10.1); Carbon Dioxide 24 mmol/L (21.0-32.0); Chloride 105 mmol/L (98-107); Creatinine Clearance Estimated 45 mL/min (50-200); Creatinine,Serum 0.91 mg/dL (0.55-1.02); Estimated Glomerular Filt Rate 61 ml/min (>60); GFR (African American) 74 ML/MIN (>60); Globulin 3.7 gm/dl (1.3-3.2); Glucose 92 mg/dL (74-106); Potassium 3.9 mmoL/L (3.5-5.1); Sodium 140 mmol/L (136-145); Total Protein,Serum 7.2 gm/dL (6.4-8.2)
[2018-08-29 09:46] LABS: Bacteria,Urine 1+ /lpf
== END 2018-08-29 13:15 | disposition home or self-care (01) ==
LOC: INF 08:57
PROVIDERS: Visit Provider Internal Medicine Medical Oncology
DX: Z51.11 Encounter for antineoplastic chemotherapy (principal); C18.9 Malignant neoplasm of colon, unspecified; R82.90 Unspecified abnormal findings in urine
CPT/HCPCS: 80053; 81001; 85025; 87086; 87088; 87186; 96413; 96415; 96417; J9035; J9206; Q0166

== ENCOUNTER 2018-09-12 08:41 | Outpatient (CLI) | payer MEDICARE, BC, SELFPAY ==
[2018-09-12 08:37] VITALS: BMI 23.0
[2018-09-12 09:03] LABS: Microscopic, Urine URINE MICROSCOPIC (MICROSCOPIC)
[2018-09-12 09:04] LABS: Appearance,Urine CLEAR (Clear); Bilirubin,Urine Negative (Negative); Blood, Urine TRACE-I (Negative); Color,Urine YELLOW (Yellow); Glucose,Urine (UA) Negative (Negative); Ketones,Urine Negative (Negative); Leukocyte Esterase,Urine Negative (Negative); Nitrate,Urine Negative (Negative); PH,Urine 5.5 (5.0-8.5); Protein,Urine Negative (Negative); Specific Gravity, Urine 1.025 (1.005-1.030); Urobilinogen,Urine 0.2 EU/dl (0.2)
[2018-09-12 09:05] LABS: Basophils % 0.3 % (0.1-2.0); Eosinophils # 0.1 K/mm3 (0.0-0.4); Hematocrit 36.2 % (37.0-47.0); Hemoglobin 11.9 g/dL (12.2-16.2); Lymphocytes # 1.9 K/mm3 (0.7-4.5); Lymphocytes % 21.9 % (10-50); Mean Corpuscular HGB Conc 32.8 g/dL (31.8-35.4); Mean Corpuscular Hemoglobin 35.5 pg (27.0-31.2); Mean Corpuscular Volume 108.2 fl (81-99); Mean Platelet Volume 7.9 fl (7.4-10.4); Monocytes # 0.3 K/mm3 (0.1-1.0); Monocytes % 3.6 % (1.7-9.3); Neutrophils # 6.4 K/mm3 (1.8-7.8); Neutrophils % 73.1 % (37.0-80.0); Platelet Count 289 K/mm3 (142-424); Red Blood Count 3.35 M/mm3 (4.20-5.40); Red Cell Distribution Width 19.1 % (11.5-17.5); White Blood Count 8.7 K/mm3 (4.8-10.8)
[2018-09-12 09:15] LABS: Alanine Aminotransferase 17 U/L (12-78); Albumin Level 3.6 gm/dL (3.4-5.0); Albumin/Globulin Ratio 0.9 (1.1-1.8); Alkaline Phosphatase 86 U/L (46-116); Anion Gap 17.6 mEq/L (5-15); Aspartate Amino Transferase 20 U/L (15-37); Bacteria,Urine 1+ /lpf; Bilirubin,Total 0.8 mg/dL (0.2-1.0); Blood Urea Nitrogen 22 mg/dL (7-18); Calcium 9.2 mg/dL (8.5-10.1); Carbon Dioxide 23 mmol/L (21.0-32.0); Chloride 101 mmol/L (98-107); Creatinine Clearance Estimated 45 mL/min (50-200); Creatinine,Serum 1.01 mg/dL (0.55-1.02); Estimated Glomerular Filt Rate 54 ml/min (>60); GFR (African American) 65 ML/MIN (>60); Globulin 3.9 gm/dl (1.3-3.2); Glucose 132 mg/dL (74-106); Mucus,Urine 3+ /lpf; Potassium 3.6 mmoL/L (3.5-5.1); RBC,Urine Occasional #/hpf (0-3); Sodium 138 mmol/L (136-145); Total Protein,Serum 7.5 gm/dL (6.4-8.2); WBC,Urine Occasional #/hpf (0-3)
[2018-09-12 10:20] VITALS: BP 122/74; PULSE 72; RESP 20; TEMP 36.9; O2SAT 95
[2018-09-12 11:00] VITALS: BP 112/74; PULSE 68; RESP 20; TEMP 36.9; O2SAT 96
[2018-09-12 11:30] VITALS: BP 123/78; PULSE 72; RESP 20; TEMP 36.9; O2SAT 95
[2018-09-12 11:50] VITALS: BP 128/74; PULSE 88; RESP 20; TEMP 36.9; O2SAT 95
[2018-09-12 12:30] VITALS: BP 122/74; PULSE 68; RESP 20; TEMP 36.9; O2SAT 95
== END 2018-09-12 12:30 | disposition home or self-care (01) ==
PROVIDERS: Visit Provider Internal Medicine Medical Oncology
DX: C18.9 Malignant neoplasm of colon, unspecified (principal)
CPT/HCPCS: 80053; 81001; 85025; 96413; 96415; 96417; J8501; J9035; J9206; Q0166

== ENCOUNTER 2018-09-26 09:51 | Outpatient (CLI) | payer MEDICARE, BC, SELFPAY ==
[2018-09-26] VITALS (11 sets, daily range): BP systolic 97–122; BP diastolic 49–65; PULSE 67–85; RESP 18–19; TEMP 36.4
[2018-09-26 10:21] LABS: Basophils % 0.6 % (0.1-2.0); Eosinophils # 0.1 K/mm3 (0.0-0.4); Eosinophils % 2.9 % (0.1-12.0); Hematocrit 34.6 % (37.0-47.0); Hemoglobin 11.4 g/dL (12.2-16.2); Lymphocytes # 1.4 K/mm3 (0.7-4.5); Lymphocytes % 27.9 % (10-50); Mean Corpuscular Hemoglobin 36.1 pg (27.0-31.2); Mean Corpuscular Volume 109.4 fl (81-99); Mean Platelet Volume 6.9 fl (7.4-10.4); Monocytes # 0.4 K/mm3 (0.1-1.0); Monocytes % 7.5 % (1.7-9.3); Neutrophils % 61.1 % (37.0-80.0); Platelet Count 240 K/mm3 (142-424); Red Blood Count 3.16 M/mm3 (4.20-5.40); Red Cell Distribution Width 18.3 % (11.5-17.5)
[2018-09-26 10:23] LABS: Microscopic, Urine URINE MICROSCOPIC (MICROSCOPIC)
[2018-09-26 10:24] LABS: Appearance,Urine SL CLOUDY (Clear); Bilirubin,Urine Negative (Negative); Blood, Urine Negative (Negative); Color,Urine YELLOW (Yellow); Glucose,Urine (UA) Negative (Negative); Ketones,Urine Negative (Negative); Leukocyte Esterase,Urine Negative (Negative); Nitrate,Urine Negative (Negative); Protein,Urine Negative (Negative); Urobilinogen,Urine 0.2 EU/dl (0.2)
[2018-09-26 10:37] LABS: Bacteria,Urine 1+ /lpf; Squamous Epithelial Cell,Urine Occasional #/hpf (0-5); WBC,Urine Occasional #/hpf (0-3)
[2018-09-26 10:43] LABS: Alanine Aminotransferase 31 U/L (12-78); Albumin Level 3.1 gm/dL (3.4-5.0); Albumin/Globulin Ratio 0.8 (1.1-1.8); Alkaline Phosphatase 91 U/L (46-116); Anion Gap 15.4 mEq/L (5-15); Aspartate Amino Transferase 33 U/L (15-37); Bilirubin,Total 0.3 mg/dL (0.2-1.0); Blood Urea Nitrogen 15 mg/dL (7-18); Calcium 8.7 mg/dL (8.5-10.1); Carbon Dioxide 24 mmol/L (21.0-32.0); Chloride 104 mmol/L (98-107); Creatinine Clearance Estimated 46 mL/min (50-200); Estimated Glomerular Filt Rate 62 ml/min (>60); GFR (African American) 75 ML/MIN (>60); Globulin 3.7 gm/dl (1.3-3.2); Glucose 128 mg/dL (74-106); Potassium 3.4 mmoL/L (3.5-5.1); Sodium 140 mmol/L (136-145); Total Protein,Serum 6.8 gm/dL (6.4-8.2)
== END 2018-09-26 14:15 | disposition home or self-care (01) ==
LOC: INF 09:51
PROVIDERS: Visit Provider Internal Medicine Medical Oncology
DX: Z51.11 Encounter for antineoplastic chemotherapy (principal); C18.9 Malignant neoplasm of colon, unspecified
CPT/HCPCS: 80053; 81001; 85025; 96413; 96415; 96417; J9035; J9206; Q0166

== ENCOUNTER 2018-10-03 08:56 | Outpatient (CLI) | payer MEDICARE, BC, SELFPAY ==
--- NOTE | 2018-10-03 08:59 | CT_ITS ---
CT chest w con, CT abdomen pelvis w con HISTORY: : COLON CA receiving chemotherapy every 2 weeks last treatment 09/26/2018. ORDERING PHYSICIAN: Johana Gupta MD PATIENT AGE: 73 years COMPARISON: Prior CT chest 06/06/2018 & March [address] Prior [address] abdomen June 2018 Technique: Oral Contrast: Redicat IV Contrast: 75 mL of Optiray 350 performed at chest with subsequent CT abdomen. At the abdomen the 72nd postcontrast image set initially performed with subsequent 7 minute delayed image set also performed. Axial helical images obtained through chest & abdomen.. Sagittal and coronal reformatted images are also generated and reviewed. All CT scans at the facility use one or more dose reduction, viz: automated exposure control, ma/kV adjustment per patient size (including targeted exams where dose is matched to indication, i.e. head), or iterative reconstruction technique. CT CHEST WITH CONTRAST : FINDINGS from June: Right lobe of the thyroid gland is slightly enlarged at least 10 mm nodule towards posterior right lobe. LUNG MYERS There is clear interval enlargement and progression of nearly all the innumerable metastatic pulmonary nodules seen at lung myers bilaterally.-Best Majority of the the previously seen nodules have increased in size;.. Some of these round metastatic towards the lung bases now measuring up to 1 cm in size. There are also some new tiny nodules additionally bilaterally. There the irregular focal soft tissue mass density with dilated airway or partial cavitary centrally again seen at the right upper lobe. This appears slightly smaller than on previous study.... Now measuring up to 3.8 cm transverse x 2 cm AP. (Previously 4 cm transverse x 2.1 cm AP.) No pleural effusions . Mediastinum./Lori: Scattered moderate-sized nodes are seen throughout the mediastinum the largest measures 16 mm AP x 9 mm right paratracheal. Minimal calcification. It is not changed. Moderate-sized precarinal lymph node appears stable. The largest measuring up to 11 mm diameter. Calcified subcarinal nodes reflect old granulomatous disease. As do a few calcified nodes at the hilar regions bilaterally. No new adenopathy the above regions Heart normal size no pericardial effusion or mass. Pulmonary arteries well visualized with no pulmonary emboli. Central line enters from the left subclavian with tip at SVC near its junction with right atrium No no osseous metastatic disease identified. ----IMPRESSION:------- CT chest------- 1. Definite enlargement/& progression of of the innumerable round discrete pulmonary metastatic nodules.. These are seen throughout the lung myers bilateral.. (Some the larger discrete round nodules measuring up towards 1 cm in size as seen towards the lung bases.) . 2. However there has been Slight regression of the large irregular focal mass/ partial cavitating mass lesion at the RUL.. (This focal RUL pulmonary mass lesion now measuring 3.8 cm x 2 cm.) 3.. Stable small/-moderate mediastinal lymph nodes appear stable & unimpressive. CT ABDOMEN/PELVIS WITH CONTRAST FINDINGS. . Multiple gas-filled gallstones again noted filling the gallbladder. Suggestion mild gallbladder wall thickening as was noted on previous study. Multiple Liver Lesions again observed Right lobe liver beginning superiorly: The largest lesion is seen at the dome the liver is slightly smaller with decrease in the transverse & AP dimension most evident.. Today this lesion measures up to 5 cm transverse x 3.4 cm AP x 4.1 cm height. However I would note small satellite lesions about this lesion are slightly larger. Superiorly at the dome of the liver, there is a lesion measuring 7.6 mm
== END 2018-10-03 09:59 | disposition home or self-care (01) ==
LOC: RAD 08:56
PROVIDERS: PCP Family Medicine; Visit Provider Internal Medicine Medical Oncology
DX: C18.9 Malignant neoplasm of colon, unspecified (principal)
CPT/HCPCS: 71260; 74177; J1642; Q9967

== ENCOUNTER 2018-10-17 08:41 | Outpatient (CLI) | payer MEDICARE, BC, SELFPAY ==
[2018-10-17] VITALS (8 sets, daily range): BP systolic 106–124; BP diastolic 57–74; PULSE 68–78; RESP 18–20; TEMP 36.9; O2SAT 95; BMI 22.4
[2018-10-17 09:34] LABS: Basophils % 0.4 % (0.1-2.0); Eosinophils # 0.1 K/mm3 (0.0-0.4); Eosinophils % 1.1 % (0.1-12.0); Hematocrit 33.1 % (37.0-47.0); Hemoglobin 10.7 g/dL (12.2-16.2); Lymphocytes # 1.4 K/mm3 (0.7-4.5); Lymphocytes % 13.4 % (10-50); Mean Corpuscular HGB Conc 32.5 g/dL (31.8-35.4); Mean Corpuscular Hemoglobin 35.6 pg (27.0-31.2); Mean Corpuscular Volume 109.5 fl (81-99); Mean Platelet Volume 7.3 fl (7.4-10.4); Monocytes # 0.7 K/mm3 (0.1-1.0); Monocytes % 6.7 % (1.7-9.3); Neutrophils % 78.5 % (37.0-80.0); Platelet Count 445 K/mm3 (142-424); Red Blood Count 3.02 M/mm3 (4.20-5.40); White Blood Count 10.3 K/mm3 (4.8-10.8)
[2018-10-17 09:36] LABS: Appearance,Urine SL CLOUDY (Clear); Bilirubin,Urine Negative (Negative); Blood, Urine Negative (Negative); Color,Urine YELLOW (Yellow); Glucose,Urine (UA) Negative (Negative); Ketones,Urine Negative (Negative); Leukocyte Esterase,Urine Negative (Negative); Microscopic, Urine URINE MICROSCOPIC (MICROSCOPIC); Nitrate,Urine Negative (Negative); Protein,Urine Negative (Negative); Urobilinogen,Urine 0.2 EU/dl (0.2)
[2018-10-17 09:46] LABS: Alanine Aminotransferase 24 U/L (12-78); Albumin Level 3.2 gm/dL (3.4-5.0); Albumin/Globulin Ratio 0.7 (1.1-1.8); Alkaline Phosphatase 86 U/L (46-116); Anion Gap 14.7 mEq/L (5-15); Aspartate Amino Transferase 25 U/L (15-37); Bilirubin,Total 0.7 mg/dL (0.2-1.0); Blood Urea Nitrogen 15 mg/dL (7-18); Carbon Dioxide 26 mmol/L (21.0-32.0); Chloride 101 mmol/L (98-107); Creatinine Clearance Estimated 40 mL/min (50-200); Creatinine,Serum 1.11 mg/dL (0.55-1.02); Estimated Glomerular Filt Rate 48 ml/min (>60); GFR (African American) 59 ML/MIN (>60); Globulin 4.5 gm/dl (1.3-3.2); Glucose 106 mg/dL (74-106); Potassium 3.7 mmoL/L (3.5-5.1); Sodium 138 mmol/L (136-145); Total Protein,Serum 7.7 gm/dL (6.4-8.2)
[2018-10-17 09:47] LABS: Bacteria,Urine 3+ /lpf
== END 2018-10-17 14:55 | disposition home or self-care (01) ==
LOC: INF 08:41
PROVIDERS: Visit Provider Internal Medicine Medical Oncology
DX: Z51.11 Encounter for antineoplastic chemotherapy (principal); C18.9 Malignant neoplasm of colon, unspecified; R82.90 Unspecified abnormal findings in urine
CPT/HCPCS: 80053; 81001; 85025; 87086; 96413; 96415; 96417; J7060; J9035; J9263; Q0166

== ENCOUNTER 2018-10-26 09:37 | Outpatient (CLI) | payer MEDICARE, BC, SELFPAY ==
[2018-10-26 09:55] VITALS: BP 98/58; PULSE 95; RESP 20; TEMP 36.7; O2SAT 98
[2018-10-26 10:25] VITALS: BP 102/61; PULSE 97; RESP 20; O2SAT 98
[2018-10-26 10:55] VITALS: BP 100/67; PULSE 94; RESP 20; O2SAT 97
[2018-10-26 11:25] VITALS: BP 112/68; PULSE 92; RESP 20; O2SAT 97
[2018-10-26 11:55] VITALS: BP 132/68; PULSE 90; RESP 20; O2SAT 98
== END 2018-10-26 12:10 | disposition home or self-care (01) ==
LOC: INF 09:37
PROVIDERS: Visit Provider Internal Medicine Medical Oncology
DX: C18.9 Malignant neoplasm of colon, unspecified (principal); R11.2 Nausea with vomiting, unspecified; R53.1 Weakness
CPT/HCPCS: 96360; 96361

== ENCOUNTER 2018-10-27 10:18 | Outpatient (CLI) | payer MEDICARE, BC, SELFPAY ==
[2018-10-27 10:20] VITALS: BP 104/76; PULSE 97; RESP 16; TEMP 37.1; O2SAT 93
[2018-10-27 10:40] VITALS: BP 118/63; PULSE 86; RESP 18; TEMP 37.1; O2SAT 93
[2018-10-27 10:53] LABS: Basophils % 0.1 % (0.1-2.0); Eosinophils % 0.3 % (0.1-12.0); Hematocrit 34.1 % (37.0-47.0); Hemoglobin 11.1 g/dL (12.2-16.2); Lymphocytes % 6.4 % (10-50); Mean Corpuscular HGB Conc 32.7 g/dL (31.8-35.4); Mean Corpuscular Hemoglobin 35.7 pg (27.0-31.2); Mean Platelet Volume 7.1 fl (7.4-10.4); Monocytes # 0.1 K/mm3 (0.1-1.0); Monocytes % 0.7 % (1.7-9.3); Neutrophils # 14.3 K/mm3 (1.8-7.8); Neutrophils % 92.6 % (37.0-80.0); Platelet Count 437 K/mm3 (142-424); Red Blood Count 3.12 M/mm3 (4.20-5.40); Red Cell Distribution Width 18.7 % (11.5-17.5); White Blood Count 15.5 K/mm3 (4.8-10.8)
[2018-10-27 10:59] LABS: MANUAL DIFFERENTIAL MANUAL DIFFERENTIAL (MANUAL DIFF)
[2018-10-27 11:02] LABS: Alanine Aminotransferase 21 U/L (12-78); Albumin Level 3.1 gm/dL (3.4-5.0); Albumin/Globulin Ratio 0.7 (1.1-1.8); Alkaline Phosphatase 79 U/L (46-116); Anion Gap 15.8 mEq/L (5-15); Aspartate Amino Transferase 18 U/L (15-37); Bilirubin,Total 0.6 mg/dL (0.2-1.0); Blood Urea Nitrogen 55 mg/dL (7-18); Calcium 8.8 mg/dL (8.5-10.1); Carbon Dioxide 24 mmol/L (21.0-32.0); Chloride 101 mmol/L (98-107); Creatinine Clearance Estimated 39 mL/min (50-200); Creatinine,Serum 0.97 mg/dL (0.55-1.02); Estimated Glomerular Filt Rate 57 ml/min (>60); GFR (African American) 68 ML/MIN (>60); Globulin 4.2 gm/dl (1.3-3.2); Glucose 123 mg/dL (74-106); Potassium 3.8 mmoL/L (3.5-5.1); Sodium 137 mmol/L (136-145); Total Protein,Serum 7.3 gm/dL (6.4-8.2)
[2018-10-27 11:29] LABS: Lymphocytes % 7 % (10-50); Macrocytosis 2+; Monocytes % 1 % (2-9); Neutrophils % 90 % (42-76); Total Cells Counted 100
[2018-10-27 11:30] LABS: Platelet Estimate Slight Increase
[2018-10-27 11:40] VITALS: BP 130/77; PULSE 97; RESP 18; TEMP 37.1; O2SAT 92
== END 2018-10-27 11:52 | disposition home or self-care (01) ==
PROVIDERS: PCP Internal Medicine Adolescent Medicine; Visit Provider Internal Medicine Medical Oncology
DX: C18.9 Malignant neoplasm of colon, unspecified (principal)
CPT/HCPCS: 80053; 85007; 85025; 96360; 96375

== ENCOUNTER 2018-10-30 11:07 | Inpatient (IN) ==
--- NOTE | 2018-10-30 11:27 | Emergency Department Note ---
ED Disposition Clinical Impression: H/O colon cancer, stage IV, Vomiting, Acute renal insufficiency, Leucocytosis, Pneumonia, Cholelithiasis, Enteritis Disposition: Still a Patient Condition on Discharge: Fair Instructions: DI for Diarrhea and Traveler's Diarrhea -- Adult, DI for Diarrhea and Traveler's Diarrhea -- Child, DI for Nausea -- Adult, DI for Nausea -- Child Referrals: Kymberly Ricketts MD [Primary Care Provider] - - Critical Care Critical Care Time: No Attestation: On 10/30/18, the high probability of a clinically significant, sudden or life threatening deterioration of the following system(s) required my full and direct attention, intervention and personal management. The time I documented below is in addition to time spent performing reported procedures but includes the following listed in this critical care notation. Medical Decision Making - Medical Records Medical records reviewed: Yes: I reviewed the patient's medical records. - Geovani Inquiry Pt receiving controlled substance: No Geovani was queried for this patient: No Vital Signs: 10/30/18 11:08 10/30/18 11:10 10/30/18 11:20 Temperature 95.6 F L Temperature Source Rectal Pulse Rate [Right Radial] 108 H 110 H 106 H Respiratory Rate 22 Blood Pressure [Right Arm] 77/52 L 72/54 L 72/62 L Blood Pressure Mean [Right Arm] 60 60 65 Blood Pressure Source [Right Arm] Automatic Cuff Automatic Cuff Automatic Cuff Blood Pressure Position [Right Arm] Sitting Sitting Sitting 02 Sat by Pulse Oximetry 95 Oxygen Delivery Method Room Air 10/30/18 11:30 10/30/18 11:31 10/30/18 11:41 Temperature Temperature Source Pulse Rate [Right Radial] 108 H 88 102 H Respiratory Rate Blood Pressure [Right Arm] 71/48 L 72/62 L 80/51 L Blood Pressure Mean [Right Arm] 55 65 60 Blood Pressure Source [Right Arm] Automatic Cuff Automatic Cuff Automatic Cuff Blood Pressure Position [Right Arm] Sitting Supine Sitting 02 Sat by Pulse Oximetry 94 L Oxygen Delivery Method Room Air 10/30/18 11:47 10/30/18 12:00 10/30/18 12:20 Temperature Temperature Source Pulse Rate [Right Radial] 96 H 91 H 87 Respiratory Rate Blood Pressure [Right Arm] 83/54 L 114/67 100/64 L Blood Pressure Mean [Right Arm] 63 82 76 Blood Pressure Source [Right Arm] Automatic Cuff Automatic Cuff Automatic Cuff Blood Pressure Position [Right Arm] Sitting Sitting Sitting 02 Sat by Pulse Oximetry Oxygen Delivery Method 10/30/18 12:51 10/30/18 13:15 10/30/18 14:00 Temperature 97.9 F Temperature Source Oral Pulse Rate [Right Radial] 89 89 93 H Respiratory Rate 20 18 Blood Pressure [Right Arm] 91/60 L 99/56 L 97/53 L Blood Pressure Mean [Right Arm] 70 70 67 Blood Pressure Source [Right Arm] Automatic Cuff Automatic Cuff Automatic Cuff Blood Pressure Position [Right Arm] Supine Supine Sitting 02 Sat by Pulse Oximetry 93 L 95 95 Oxygen Delivery Method Room Air Room Air Room Air - Lab Data Lab Results 10/30/18 11:20: WBC 13.8 H, RBC 3.83 L, Hgb 13.5, Hct 41.0, MCV 107.0 H, MCH 35.4 H, MCHC 33.1, RDW 18.6 H, Plt Count 382, MPV 7.7, Neut % (Auto) 91.4 H, Lymph % (Auto) 6.3 L, Clinch % (Auto) 1.8, Eos % (Auto) 0.3, Baso % (Auto) 0.1, Neut # (Auto) 12.6 H, Lymph # (Auto) 0.9, Clinch # (Auto) 0.3, Eos # (Auto) 0.1, Baso # (Auto) 0.0, Total Counted 100, Neutrophils % (Manual) 78 H, Band Neutrophils % 5.0, Lymphocytes % (Manual) 10, Monocytes % (Manual) 7, Platelet Estimate Normal, Macrocytosis 2+ 10/30/18 11:20: Sodium 133 L, Potassium 3.3 L, Chloride 88 L, Carbon Dioxide 31, Anion Gap 17.3 H, BUN 98 H, Creatinine 3.25 H, Estimated Creat Clear 12, Estimated GFR 14 L*, Est GFR ( Amer) 17 L*, Glucose 254 H, Calcium 9.9, Magnesium 2.3 H, Total Bilirubin 0.5, AST 16, ALT 23, Alkaline Phosphatase 92, Total Protein 8.1, Albumin 3.6, Globulin 4.5 H, Albumin/Globulin Ratio 0.8 L, Lipase 174 10/30/18 11:20: Lactate 6.7 H 10/30/18 11:30: Urine Color Yellow, Urine Appearance Clear, Urine pH 5.5, Ur Specific [place] 1.025, Urine Protein Negative, Urine Glucose (UA) Negative, Urine Ketones Negative, Urine Blood Negative, Urine Nitrate Negative, Urine Bilirubin Negative, Urine Urobilinogen 0.2, Ur Leukocyte Esterase Negative, Ur Squamous Epith Cells Occasional, Urine Bacteria Trace Result diagrams: 10/30/18 11:20 10/30/18 11:20 Orders (Tests/Meds): ED MEDICATIONS Discontinued Medications Generic Name Dose Route Start Last Admin Trade Name Freq PRN Reason Stop Dose Admin Diatrizoate Meglum/Diatrizoate Sod 30 ml 10/30/18 11:21 10/30/18 11:47 Gastrografin 66%-10% 30ml PO 10/30/18 11:22 30 ml ONCE ONE Administration Famotidine 20 mg 10/30/18 11:22 10/30/18 11:47 Pepcid 20mg/2ml Vial IV 10/30/18 11:23 20 mg ONCE ONE Administration Sodium Chloride 1,000 mls @ 999 mls/hr 10/30/18 11:30 10/30/18 11:47 Sod Chlor 0.9% 1000ml Bag IV 10/30/18 12:30 999 mls/hr .Q1H1M TOMER Administration Sodium Chloride 500 mls @ 999 mls/hr 10/30/18 12:30 10/30/18 12:23 Sod Chlor 0.9% 1000ml Bag IV 10/30/18 13:00 999 mls/hr .Q31M TOMER Administration Ceftriaxone Sodium 1 gm/ 50 mls @ 100 mls/hr 10/30/18 13:23 10/30/18 13:59 Sodium Chloride IV 10/30/18 13:52 100 mls/hr ONCE ONE Administration Protocol Sodium Chloride 1,000 mls @ 999 mls/hr 10/30/18 14:00 10/30/18 14:00 Sod Chlor 0.9% 1000ml Bag IV 10/30/18 15:00 999 mls/hr .Q1H1M TOMER Administration Metoclopramide HCl 5 mg 10/30/18 11:22 10/30/18 11:47 Reglan 10mg/2ml Vial IVP 10/30/18 11:23 5 mg ONCE ONE Administration ORDERS Category Date Time Status Blood Culture Stat Micro 10/30/18 11:20 Received - CT Data CT Scan: Abdomen, Pelvis, Chest Time Received: 14:[address] Reviewed: Yes: I have viewed the radiologist's interpretation Preliminary Findings: Abnormal Findings Narrative: Chest CT IMPRESSION : 1. Again see numerable metastatic nodules throughout the lung perla bilaterally. ... The largest mass at the right upper lobe with definite progression size with slight increased cavitation since October 03. ... Numerous other metastatic only nodules evident with a few with a few perhaps showing subtle incremental density/subtle progression . 2. Minimal additional airspace disease posterior lung bases bilateral. ... Suspect subtle patchy interstitial infiltrate, along with minimal atelectasis, most evident at posterior sulcus along posterior aspect RLL.. .... Atelectasis with only questionable infiltrate along posterior margin LLL at posterior sulcus 3. Interval Thickening distal esophagus since previous study- may reflect esophagitis. Correlation required.. Intraluminal contrast here suggesting GE reflux. It 4. Other minor observations ... Slightly dilated ascending aorta again noted measuring up to 4 cm diameter. . No osseous metastatic disease evident. Ct of the Abdomen and pelvis. IMPRESSION. 1. Generous Air-fluid levels and prominent increased fluid throughout small & large bowel.- Probable reflecting Enteritis.: ... Prominent distention of the stomach. Consider NG tube. .... Dilated descending duodenum particularly evident with suggestion of wall thickening in possible scant stranding/inflammation surrounding the descending duodenum. Clinical correlation required. ... Multiple air-fluid levels throughout mildly dilated small bowel ... Prominent gas & generous air-fluid levels large bowel- most evident at right & transverse colon colon. ... Large bowel bowel tapers down from the splenic flexure towards the LLQ Colostomy but no point discrete point of obstruction .... 2. Thickened esophagus since prior study possible esophagitis,. GE reflux evident currently 3. Left adrenal is slightly larger with. A calcified 6 mm calcified left adrenal nodule is new since prior study 4. Additional minimal airspace disease most evident at posterior aspect of right lower lobe and posterior sulcus. 5. Multiple Metastatic lesions liver much better seen on previous postcontrast studies-. There is some early calcification of treated lesions noted. Difficult to compare without contrast 6... Stable Cholelithiasis again noted. Other observations in body of report Medical Decision Narrative: The patient found to have acute renal insufficiency with a creatinine of 3.5 she received 2 L of normal saline with elevation of her blood pressure to 99/56 mmhg. I obtained blood cultures and lactic acid started on antibiotics. [address] report I discussed with Dr. Stephon Lucas who agreed to admit the patient for sepsis, pneumonia, acute renal failure, and metastatic colon cancer. General Adult HPI - General Chief complaint: Nausea/Vomiting/Diarrhea Stated complaint: Lethargy, Cancer, n/v Time Seen by Provider: 10/30/18 11:10 Mode of Arrival: EMS Source of Information: Patient, Relative Limitations: No Limitations - History of Present Illness HPI narrative: 73 years old white female with metastatic colon cancer stage IV who received chemotherapy in 2018 and recently stopped her experimental chemotherapy 2 weeks ago due to complications. For the past 2 days the patient has been experiencing vomiting 3 times a day with more loose stool in her colostomy bag. Also the patient complains of cough. She denies having hemoptysis hematemesis coffee- ground emesis melanotic stool or bleeding per rectum. She denies having fever or chills. The patient wants to travel to see her son in [facility] and return for half strength chemotherapy. The above history was confirmed by her daughter and granddaughters who feel that the patient is getting terminal she does not want to give up because of her family. The oncologist Dr. Gupta has expressed to the family that there is not much left to do from a chemotherapy standpoint of view and should consider com fort measures. Onset (ago): day(s) (2 days.) Radiation: non-radiation Relieving factors: none Exacerbating factors: none Associated symptoms: cough, nausea/vomiting - Related Data Home Medications Medication Instructions Recorded Confirmed ramipril 1.25 mg capsule 2.5 mg PO HS 07/06/17 10/30/18 Aspirin [Aspirin 81mg EC Tab] 81 mg PO DAILY 07/27/17 10/30/18 Mirtazapine [Remeron 15mg tablet] 15 mg PO HS 10/27/17 10/30/18 acetaminophen 325 mg capsule 625 mg PO Q4HP PRN 11/08/17 10/30/18 Cholecalciferol (Vitamin D3) 1,000 unit PO DAILY 12/01/17 10/30/18 [Vitamin D3 1,000 Unit Cap] Cyanocobalamin (Vitamin B-12) 1,000 mcg PO DAILY 12/01/17 10/30/18 [Vitamin B-12 1000mcg Tablet] Ondansetron HCl [Ondansetron 8mg 8 mg PO TIDP PRN 12/01/17 10/30/18 Tab] Potassium Chloride [Micro-K 10mEq 10 meq PO BID 12/01/17 10/30/18 cap] Triamterene/Hydrochlorothiazid 0.5 each PO DAILY 12/01/17 10/30/18 [Dyazide 37.5-25 Capsule] Capecitabine [Xeloda] 1,500 mg PO BID 01/03/18 10/30/18 Allergies Allergy/AdvReac Type Severity Reaction Status Date / Time No Known Allergies Allergy Verified 10/27/18 09:35 [facility] History - Hepatitis A Screen Attestation statement:: This patient has been screened for Hepatitis A risk factors. I have reviewed the patient's past medical history: Yes Medical History: Reports:: Anxiety, Asthma, Cancer, Depression, Diabetes Mellitus Type 2, Hypertension Denies:: Diabetes Mellitus Type 1, MRSA, Seizures Other Medical History: Reports: Anemia, Arthritis, Sinus Problems. Denies: Blood Transfusion Reaction Other Surgeries: Yes: Colostomy, Hysterectomy-Total, Tubal Ligation, Other Amputation: No Fractures: No - Social History Smoking Status: Former smoker Tobacco Type: cigarettes Alcohol Intake: current Alcohol Intake Frequency:: holidays/special occasions only Substance Use Type: denies use Occupational Status: retired Housing: house Household Members: family - Psychiatric History Pschychiatric History:: Reports:: Anxiety, Depression Family Hx:: Heart Attack, Cancer, Thyroid Disorder ROS Obtained: Yes All systems reviewed & no additional complaints Physical Exam - General General appearance: alert, in no apparent distress, other (The patient is emaciated underweight. ) - Head Head exam: atraumatic, normocephalic, normal inspection - Eye Eye exam: Present: normal appearance, PERRL, EOMI. Absent: scleral icterus, nystagmus - ENT ENT exam: Present: normal exam, normal oropharynx, mucous membranes moist, TM's normal bilaterally, normal external ear exam - Neck Neck exam: Present: normal inspection, full ROM, trachea midline. Absent: tenderness, meningismus, lymphadenopathy - Chest Chest inspection: Present: normal inspection, symmetric chest wall rise. Absent: tenderness - Respiratory Respiratory exam: Present: normal lung sounds bilaterally. Absent: respiratory distress, wheezes - Cardiovascular Cardiovascular exam: Present: regular rate, normal rhythm, normal heart sounds. Absent: JVD - Abdominal Exam Abdominal exam: Present: soft, normal bowel sounds, other (Patient has a colostomy in the left upper quadrant with a loose stool in it no blood. ). Absent: distention, tenderness, guarding, rigidity, Monson's sign, tenderness at McBurney's Point - External exam: Present: normal external exam - Extremities Exam Extremities exam: Present: normal inspection, full ROM, normal capillary refill. Absent: calf tenderness - Back Exam Back exam: Present: normal inspection. Absent: tenderness, CVA tenderness (R), CVA tenderness (L) - Neurological Exam Neurological exam: Present: alert, oriented X3, CN II-XII intact, motor sensory deficit, reflexes normal - Psychiatric Psychiatric exam: Present: normal affect, normal mood - Skin Skin exam: Present: warm, dry, intact, normal color - Lymphatic Lymphatic Findings: no adenopathy
[2018-10-30 11:39] LABS: Basophils % 0.1 % (0.1-2.0); Eosinophils # 0.1 K/mm3 (0.0-0.4); Eosinophils % 0.3 % (0.1-12.0); Hemoglobin 13.5 g/dL (12.2-16.2); Lymphocytes # 0.9 K/mm3 (0.7-4.5); Lymphocytes % 6.3 % (10-50); Mean Corpuscular HGB Conc 33.1 g/dL (31.8-35.4); Mean Corpuscular Hemoglobin 35.4 pg (27.0-31.2); Mean Platelet Volume 7.7 fl (7.4-10.4); Monocytes # 0.3 K/mm3 (0.1-1.0); Monocytes % 1.8 % (1.7-9.3); Neutrophils # 12.6 K/mm3 (1.8-7.8); Neutrophils % 91.4 % (37.0-80.0); Platelet Count 382 K/mm3 (142-424); Red Blood Count 3.83 M/mm3 (4.20-5.40); Red Cell Distribution Width 18.6 % (11.5-17.5); White Blood Count 13.8 K/mm3 (4.8-10.8)
[2018-10-30 11:39] LABS: Microscopic, Urine URINE MICROSCOPIC (MICROSCOPIC)
[2018-10-30 11:40] LABS: Appearance,Urine CLEAR (Clear); Bilirubin,Urine Negative (Negative); Blood, Urine Negative (Negative); Color,Urine YELLOW (Yellow); Glucose,Urine (UA) Negative (Negative); Ketones,Urine Negative (Negative); Leukocyte Esterase,Urine Negative (Negative); PH,Urine 5.5 (5.0-8.5); Protein,Urine Negative (Negative); Specific Gravity, Urine 1.025 (1.005-1.030); Urobilinogen,Urine 0.2 EU/dl (0.2)
[2018-10-30 11:48] LABS: Albumin Level 3.6 gm/dL (3.4-5.0); Albumin/Globulin Ratio 0.8 (1.1-1.8); Anion Gap 17.3 mEq/L (5-15); Bilirubin,Total 0.5 mg/dL (0.2-1.0); Calcium 9.9 mg/dL (8.5-10.1); Globulin 4.5 gm/dl (1.3-3.2); Potassium 3.3 mmoL/L (3.5-5.1); Total Protein,Serum 8.1 gm/dL (6.4-8.2)
[2018-10-30 11:48] LABS: Bacteria,Urine Trace /lpf; Squamous Epithelial Cell,Urine Occasional #/hpf (0-5)
[2018-10-30 11:57] LABS: Lymphocytes % 10 % (10-50); Macrocytosis 2+; Monocytes % 7 % (2-9); Neutrophils % 78 % (42-76); Total Cells Counted 100
--- NOTE | 2018-10-30 16:08 | Sepsis Event Note ---
Tissue Perfusion Evaluation Sepsis Re-Evaluation Performed: Yes Date Performed: 10/30/18 Time Performed: 16:07 Sepsis Follow-Up: Yes: Respiratory exam, Cardiovascular exam, Capillary refill, Peripheral pulse strength, Peripheral pulse location, Skin exam, Vital Signs Most Recent Vital Signs: Temperature 97.9 F 10/30/18 14:00 Temperature Source Oral 10/30/18 14:00 Pulse Rate 82 10/30/18 15:33 Respiratory Rate 18 10/30/18 14:00 Blood Pressure 94/51 L 10/30/18 15:33 Blood Pressure Mean 65 10/30/18 15:33 Blood Pressure Source Automatic Cuff 10/30/18 15:33 Blood Pressure Position Supine 10/30/18 15:33 02 Sat by Pulse Oximetry 94 L 10/30/18 15:33 Oxygen Delivery Method 10/30/18 15:33
[2018-10-31 06:48] LABS: Basophils % 0.1 % (0.1-2.0); Eosinophils % 0.3 % (0.1-12.0); Hematocrit 28.5 % (37.0-47.0); Lymphocytes # 0.5 K/mm3 (0.7-4.5); Mean Corpuscular HGB Conc 31.4 g/dL (31.8-35.4); Mean Corpuscular Hemoglobin 35.4 pg (27.0-31.2); Mean Corpuscular Volume 112.6 fl (81-99); Mean Platelet Volume 7.8 fl (7.4-10.4); Monocytes # 0.2 K/mm3 (0.1-1.0); Neutrophils # 5.3 K/mm3 (1.8-7.8); Neutrophils % 87.7 % (37.0-80.0); Platelet Count 219 K/mm3 (142-424); Red Blood Count 2.53 M/mm3 (4.20-5.40); Red Cell Distribution Width 18.8 % (11.5-17.5)
[2018-10-31 07:05] LABS: Anion Gap 12.3 mEq/L (5-15); Potassium 5.3 mmoL/L (3.5-5.1)
--- NOTE | 2018-10-31 07:46 | Pharmacy Consult Notes ---
[facility] Pharmacy VTE Monitoring - Patient Demographics Admission date: 10/30/18 Report Date: 10/31/18 Time: 07:46 Allergies/Adverse Reactions: Patient Allergies No Known Allergies Allergy (Verified 10/27/18 09:35) Height: 1.55 m Weight: 51.851 kg Patient Problems: Current Active Problems (Updated 10/30/18 @ 15:33 by Laura Chamberlain MD) H/O colon cancer, stage IV (Acute) Vomiting (Acute) Acute renal insufficiency (Acute) Leucocytosis (Acute) Pneumonia (Acute) Cholelithiasis (Acute) Enteritis (Acute) - VTE Risk Labs: VTE Related Lab Results Hgb 9.0 g/dL (12.2-16.2) L D 10/31/18 06:15 Hct 28.5 % (37.0-47.0) L 10/31/18 06:15 Plt Count 219 K/mm3 (142-424) D 10/31/18 06:15 BUN 54 mg/dL (7-18) H D 10/31/18 06:15 Creatinine 1.31 mg/dL (0.55-1.02) H D 10/31/18 06:15 Estimated Creat Clear 32 mL/min (50-200) 10/31/18 06:15 Was VTE Risk Assessment Performed: Yes VTE Score: 1 VTE Risk Level: Very Low Risk - Prophylaxis VTE Prophylaxis Ordered?: Yes Types of VTE Prophylaxis: TEDS Knee High Location of Applied Device: Bilateral Lower Extremeties - VTE Diagnosis Confirmed Treatment or plan recommended: Continue Current Treatment
[2018-10-31 08:31] LABS: Lymphocytes % 8 % (10-50); Macrocytosis 2+; Monocytes % 3 % (2-9); Neutrophils % 87 % (42-76); Total Cells Counted 100
--- NOTE | 2018-10-31 09:10 | Progress Note ---
Internal Medicine - PN: Subj *Date: 10/31/18 *Time: 09:07 Interval history: This patient is admitted essentially with carcinomatosis. She has metastatic cancer. She has mets in the lungs. She has a colostomy. Colostomy is functioning. She wants her NG out. She has lost a significant amount of weight. Exam Vital signs and Labs for Last 24 Hours: Temp Pulse Resp BP Pulse Ox 98.6 F 86 18 122/75 95 10/31/18 08:00 10/31/18 08:00 10/31/18 08:00 10/31/18 08:00 10/31/18 08:00 Laboratory Results - last 24 hr 10/30/18 11:20: WBC 13.8 H, RBC 3.83 L, Hgb 13.5, Hct 41.0, MCV 107.0 H, MCH 35.4 H, MCHC 33.1, RDW 18.6 H, Plt Count 382, MPV 7.7, Neut % (Auto) 91.4 H, Lymph % (Auto) 6.3 L, [place] % (Auto) 1.8, Eos % (Auto) 0.3, Baso % (Auto) 0.1, Neut # (Auto) 12.6 H, Lymph # (Auto) 0.9, [place] # (Auto) 0.3, Eos # (Auto) 0.1, Baso # (Auto) 0.0, Total Counted 100, Neutrophils % (Manual) 78 H, Band Neutrophils % 5.0, Lymphocytes % (Manual) 10, Monocytes % (Manual) 7, Platelet Estimate Normal, Macrocytosis 2+ 10/30/18 11:20: Sodium 133 L, Potassium 3.3 L, Chloride 88 L, Carbon Dioxide 31, Anion Gap 17.3 H, BUN 98 H, Creatinine 3.25 H, Estimated Creat Clear 12, Estimated GFR 14 L*, Est GFR ( Amer) 17 L*, Glucose 254 H, Calcium 9.9, Magnesium 2.3 H, Total Bilirubin 0.5, AST 16, ALT 23, Alkaline Phosphatase 92, Total Protein 8.1, Albumin 3.6, Globulin 4.5 H, Albumin/Globulin Ratio 0.8 L, Lipase 174 10/30/18 11:20: Lactate 6.7 H 10/30/18 11:30: Urine Color Yellow, Urine Appearance Clear, Urine pH 5.5, Ur Specific [place] 1.025, Urine Protein Negative, Urine Glucose (UA) Negative, Urine Ketones Negative, Urine Blood Negative, Urine Nitrate Negative, Urine Bilirubin Negative, Urine Urobilinogen 0.2, Ur Leukocyte Esterase Negative, Ur Squamous Epith Cells Occasional, Urine Bacteria Trace 10/30/18 16:23: Lactate 0.7 10/31/18 06:15: WBC 6.0 D, RBC 2.53 L D, Hgb 9.0 L D, Hct 28.5 L, MCV 112.6 H, MCH 35.4 H, MCHC 31.4 L, RDW 18.8 H, Plt Count 219 D, MPV 7.8, Neut % (Auto) 87.7 H, Lymph % (Auto) 8.0 L, [place] % (Auto) 4.0, Eos % (Auto) 0.3, Baso % (Auto) 0.1, Neut # (Auto) 5.3, Lymph # (Auto) 0.5 L, [place] # (Auto) 0.2, Eos # (Auto) 0.0, Baso # (Auto) 0.0, Total Counted 100, Neutrophils % (Manual) 87 H, Lymphocytes % (Manual) 8 L, Monocytes % (Manual) 3, Metamyelocytes % 2.0 H, Platelet Estimate Normal, RBC Morphology Not Reportable, Macrocytosis 2+ 10/31/18 06:15: Sodium 145, Potassium 5.3 H D, Chloride 115 H, Carbon Dioxide 23 D, Anion Gap 12.3, BUN 54 H D, Creatinine 1.31 H D, Estimated Creat Clear 32, Estimated GFR 40 L, Est GFR ( Amer) 48 L D, Glucose 482 H* D, Calcium 7.0 L D 10/31/18 07:25: POC Glucose 125 H I & O for Last 24 hours: Intake & Output 10/28/18 10/29/18 10/30/18 10/31/18 11:59 11:59 11:59 11:59 Intake Total 1817 / 1817 Output Total 1450 / 1450 Balance 367 / 367 Weight 106 lb 114 lb 5 oz Microbiology Reports for the Last 24 Hours: Microbiology 10/30/18 17:20 Sputum - Expectorated Sputum Gram Stain - Final 10/30/18 17:20 Sputum - Expectorated Sputum Sputum Culture - Preliminary - Constitutional cachectic, chronically ill appearing - *Routine HEENT Exam Eye: Present: PERRL ENT: Present: mucous membranes dry - *Routine Neck Exam Present: supple - *Routine Respiratory Exam Present: CTA bilaterally - *Routine Cardiovascular Exam Present: RRR - *Routine Abdominal Exam Present: soft, ostomy (Appears to be functioning) - *Routine Rectal Exam Comments: Deferred - *Routine Extremities Exam Absent: edema - *Routine Neurological Exam Present: alert, oriented X3 Assessment and Plan (1) Carcinomatosis Current visit: Yes Status: Acute Category: Medical Code(s): C80.0 - Disseminated malignant neoplasm, unspecified (2) H/O colon cancer, stage IV Current visit: Yes Status: Acute Category: Medical Code(s): Z85.038 - Personal history of other malignant neoplasm of large intestine (3) Vomiting Current visit: Yes Status: Acute Category: Medical Code(s): R11.10 - Vomiting, unspecified - Assessment and plan all Dx Assessment and Plan for all problems:: DC NG. Full liquids.
--- NOTE | 2018-10-31 09:28 | History & Physical Report ---
*Admission Date: 10/30/18 *Chief complaint: Nausea and vomiting *History of present illness: Ms. Hall is a 73-year-old female with a history of type 2 diabetes mellitus and metastatic carcinoma who is followed by Dr. Gupta. She states she received her latest chemotherapy 2 weeks ago and has not done well since. She has experienced nausea with vomiting for the 2-week.. She has been unable to eat and drink. Yesterday she felt so badly she requested her family to bring her to the hospital. She was very weak and unable to ambulate without help. With evaluation in the emergency room patient she was found to be dehydrated and in renal failure. Chest x-ray also revealed a pneumonia. She was started on IV fluids and admitted for further evaluation and treatment. CT of the abdomen and pelvis revealed gas-filled loops of small and large intestine and an NG tube was placed. This a.m. patient's biggest complaint is the NG tube. She requested it be removed. She has a sore throat from this. She has had no further vomiting and denies nausea. She would like to have liquids. Bowels have been moving in her colostomy bag. She has a Henson catheter. [facility] History Medical History: Reports:: Anxiety, Asthma, Cancer, Depression, Diabetes Mellitus Type 2, Heart Murmur, Hypertension Denies:: Diabetes Mellitus Type 1, MRSA, Seizures *Have you ever received a pneumonia vaccine?: Yes *Have you received a flu vaccine this season?: Yes Other Medical History: Reports: Anemia, Arthritis, Sinus Problems. Denies: Blood Transfusion Reaction Other Surgeries: Yes: Colostomy, Hysterectomy-Total, Tubal Ligation, Other Amputation: No Fractures: No - *Social History Smoking Status: Former smoker Tobacco Type: cigarettes Alcohol Intake: never Alcohol Intake Frequency:: holidays/special occasions only Substance Use Type: denies use *Occupational Status:: retired Housing: house Household Members: family *Travel in the last 8 weeks: None - Psychiatric History Expresses thoughts of harming self/others: None Suicide Plan Description: No Plan Pschychiatric History:: Reports:: Anxiety, Depression Family Hx:: Heart Attack, Cancer, Thyroid Disorder Review of Systems - Constitutional Reports lack of energy, Reports weakness, Reports weight loss - ENT Denies ear pain, Denies sore throat - *Cardiovascular Denies chest pain, Denies shortness of breath - *Respiratory Reports cough (Sometimes productive of yellow sputum) - *Gastrointestinal Reports nausea, Reports vomiting, Denies abdominal pain, Denies vomiting blood, Denies bright, red blood in stools Comments: Patient has a colostomy which has been functioning well. - *Genitourinary Denies difficulty urinating Comments: He has had a decrease urinary output. - *Musculoskeletal Comments: has needed assistance in walking to the bathroom. - *Neurologic Reports unsteadiness, Reports dizziness, Denies frequent falls, Denies seizure- like activity Meds Home Medications Medication Instructions Recorded Confirmed Type Aspirin [Aspirin 81mg EC Tab] 81 mg PO HS 07/27/17 10/30/18 History Mirtazapine [Remeron 15mg tablet] 15 mg PO HS 10/27/17 10/30/18 History acetaminophen 325 mg capsule 625 mg PO Q4HP PRN 11/08/17 10/30/18 History Cholecalciferol (Vitamin D3) 1,000 unit PO DAILY 12/01/17 10/30/18 History [Vitamin D3 1,000 Unit Cap] Cyanocobalamin (Vitamin B-12) 1,000 mcg PO DAILY 12/01/17 10/30/18 History [Vitamin B-12 1000mcg Tablet] Ondansetron HCl [Ondansetron 8mg 8 mg PO TIDP PRN 12/01/17 10/30/18 History Tab] Potassium Chloride [Micro-K 10mEq 10 meq PO TID 12/01/17 10/30/18 History cap] Triamterene/Hydrochlorothiazid 0.5 each PO DAILY 12/01/17 10/30/18 History [Dyazide 37.5-25 Capsule] Capecitabine [Xeloda] 1,500 mg PO BID 01/03/18 10/30/18 History Polymyxin B Sulf/Trimethoprim 1 drp EYE-BOTH TID 10/30/18 10/30/18 History [Polytrim Ophth Soln 10mL Bottle] Naphazoline HCl/Pheniramine 1 drp OP TID 10/31/18 10/31/18 History [Naphcon-A Eye Drops] Ramipril [Altace] 2.5 mg PO DAILY 10/31/18 10/31/18 History Allergies Allergy/AdvReac Type Severity Reaction Status Date / Time No Known Allergies Allergy Verified 10/27/18 09:35 Exam Vital signs and Labs for Last 24 Hours: Temp Pulse Resp BP Pulse Ox 98.6 F 86 18 122/75 95 10/31/18 08:00 10/31/18 08:00 10/31/18 08:00 10/31/18 08:00 10/31/18 08:00 Laboratory Results - last 24 hr 10/30/18 11:20: WBC 13.8 H, RBC 3.83 L, Hgb 13.5, Hct 41.0, MCV 107.0 H, MCH 35.4 H, MCHC 33.1, RDW 18.6 H, Plt Count 382, MPV 7.7, Neut % (Auto) 91.4 H, Lymph % (Auto) 6.3 L, [place] % (Auto) 1.8, Eos % (Auto) 0.3, Baso % (Auto) 0.1, Neut # (Auto) 12.6 H, Lymph # (Auto) 0.9, [place] # (Auto) 0.3, Eos # (Auto) 0.1, Baso # (Auto) 0.0, Total Counted 100, Neutrophils % (Manual) 78 H, Band Neutrophils % 5.0, Lymphocytes % (Manual) 10, Monocytes % (Manual) 7, Platelet Estimate Normal, Macrocytosis 2+ 10/30/18 11:20: Sodium 133 L, Potassium 3.3 L, Chloride 88 L, Carbon Dioxide 31, Anion Gap 17.3 H, BUN 98 H, Creatinine 3.25 H, Estimated Creat Clear 12, Estimated GFR 14 L*, Est GFR ( Amer) 17 L*, Glucose 254 H, Calcium 9.9, Magnesium 2.3 H, Total Bilirubin 0.5, AST 16, ALT 23, Alkaline Phosphatase 92, Total Protein 8.1, Albumin 3.6, Globulin 4.5 H, Albumin/Globulin Ratio 0.8 L, Lipase 174 10/30/18 11:20: Lactate 6.7 H 10/30/18 11:30: Urine Color Yellow, Urine Appearance Clear, Urine pH 5.5, Ur Specific [place] 1.025, Urine Protein Negative, Urine Glucose (UA) Negative, Urine Ketones Negative, Urine Blood Negative, Urine Nitrate Negative, Urine Bilirubin Negative, Urine Urobilinogen 0.2, Ur Leukocyte Esterase Negative, Ur Squamous Epith Cells Occasional, Urine Bacteria Trace 10/30/18 16:23: Lactate 0.7 10/31/18 06:15: WBC 6.0 D, RBC 2.53 L D, Hgb 9.0 L D, Hct 28.5 L, MCV 112.6 H, MCH 35.4 H, MCHC 31.4 L, RDW 18.8 H, Plt Count 219 D, MPV 7.8, Neut % (Auto) 87.7 H, Lymph % (Auto) 8.0 L, [place] % (Auto) 4.0, Eos % (Auto) 0.3, Baso % (Auto) 0.1, Neut # (Auto) 5.3, Lymph # (Auto) 0.5 L, [place] # (Auto) 0.2, Eos # (Auto) 0.0, Baso # (Auto) 0.0, Total Counted 100, Neutrophils % (Manual) 87 H, Lymphocytes % (Manual) 8 L, Monocytes % (Manual) 3, Metamyelocytes % 2.0 H, Sakshi telet Estimate Normal, RBC Morphology Not Reportable, Macrocytosis 2+ 10/31/18 06:15: Sodium 145, Potassium 5.3 H D, Chloride 115 H, Carbon Dioxide 23 D, Anion Gap 12.3, BUN 54 H D, Creatinine 1.31 H D, Estimated Creat Clear 32, Estimated GFR 40 L, Est GFR ( Amer) 48 L D, Glucose 482 H* D, Calcium 7.0 L D 10/31/18 07:25: POC Glucose 125 H I & O for Last 24 hours: Intake & Output 10/28/18 10/29/18 10/30/18 10/31/18 11:59 11:59 11:59 11:59 Intake Total 1817 / 1817 Output Total 1450 / 1450 Balance 367 / 367 Weight 106 lb 114 lb 5 oz Microbiology Reports for the Last 24 Hours: Microbiology 10/30/18 17:20 Sputum - Expectorated Sputum Gram Stain - Final 10/30/18 17:20 Sputum - Expectorated Sputum Sputum Culture - Preliminary Radiology Reports for the Last 24 Hours: I CT of abdomen and pelvis 10/30/2018 MPRESSION. 1. Generous Air-fluid levels and prominent increased fluid throughout small & large bowel.- Probable reflecting Enteritis.: ... Prominent distention of the stomach. Consider NG tube. .... Dilated descending duodenum particularly evident with suggestion of wall thickening in possible scant stranding/inflammation surrounding the descending duodenum. Clinical correlation required. ... Multiple air-fluid levels throughout mildly dilated small bowel ... Prominent gas & generous air-fluid levels large bowel- most evident at right & transverse colon colon. ... Large bowel bowel tapers down from the splenic flexure towards the LLQ Colostomy but no point discrete point of obstruction CT of chest 10/30/2018 -----IMPRESSION- 1. Again see numerable metastatic nodules throughout the lung perla bilaterally. ... The largest mass at the right upper lobe with definite progression size with slight increased cavitation since October 03. ... Numerous other metastatic only nodules evident with a few with a few perhaps showing subtle incremental density/subtle progression . 2. Minimal additional airspace disease posterior lung bases bilateral. ... Suspect subtle patchy interstitial infiltrate, along with minimal atelectasis, most evident at posterior sulcus along posterior aspect RLL.. .... Atelectasis with only questionable infiltrate along posterior margin LLL at posterior sulcus 3. Interval Thickening distal esophagus since previous study- may reflect esophagitis. Correlation required.. Intraluminal contrast here suggesting GE reflux. It 4. Other minor observations ... Slightly dilated ascending aorta again noted measuring up to 4 cm diameter. . No osseous metastatic disease evident. Chest x-ray 10/30/2018 IMPRESSION...... NG tube in satisfactory position. The tip is seen at the proximal body stomach. . marked improvement & decompression of the stomach since studies earlier today-at 1:30 PM today Actually also appears to be improvement & some decompression of the large & small bowel in the interval Upright plain film shows moderate persisting scattered air-fluid levels within now only mildly prominent small small bowel & right colon. Again improvement since 1:30 PM The nodularity & wispy infiltrate at the right lung base/posterior sulcus is vaguely seen & obscured by the right right hemidiaphragm The treated mass density towards the RUL again noted (Although marked improvement of since old July 2017 study, recent CT studies of shown slight progression of this RUL mass..). - Constitutional no acute distress - *Routine HEENT Exam Head: Present: normocephalic, atraumatic Eye: Present: PERRL. Absent: conjunctival icterus, scleral injection ENT: Present: mucous membranes moist Comments: NG tube in place - *Routine Neck Exam Present: supple. Absent: carotid bruit, lymphadenopathy, thyromegaly - *Routine Respiratory Exam Present: CTA bilaterally (Anteriorly and posteriorly) - *Routine Cardiovascular Exam Present: RRR - *Routine Abdominal Exam Present: soft, normoactive bowel sounds. Absent: tenderness Comments: Colostomy bag located in left lower quadrant - *Routine Extremities Exam Absent: edema, calf tenderness - *Routine Neurological Exam Present: alert, oriented X3 Assessment and Plan (1) Carcinomatosis Current visit: Yes Status: Acute Category: Medical Code(s): C80.0 - Disseminated malignant neoplasm, unspecified (2) H/O colon cancer, stage IV Current visit: Yes Status: Acute Category: Medical Code(s): Z85.038 - Personal history of other malignant neoplasm of large intestine (3) Vomiting Current visit: Yes Status: Acute Category: Medical Code(s): R11.10 - Vomiting, unspecified (4) Dehydration Current visit: Yes Status: Acute Category: Medical Code(s): E86.0 - Dehydration (5) Acute renal insufficiency Current visit: Yes Status: Acute Category: Medical Code(s): N28.9 - Disorder of kidney and ureter, unspecified (6) Pneumonia Current visit: Yes Status: Acute Category: Medical Code(s): J18.9 - Pneumonia, unspecified organism - Assessment and plan all Dx Assessment and Plan for all problems:: Blood sugars have been elevated. Potassium is a little high today. We will change IV fluids to normal saline at [address] her on sliding scale insulin. Will also continue with IV antibiotics and start duo nebs. Will repeat labs in the a.m. Dr. Ricketts has removed NG tube and started the patient on liquids.
[2018-11-01 07:16] LABS: Eosinophils # 0.1 K/mm3 (0.0-0.4); Hematocrit 26.2 % (37.0-47.0); Hemoglobin 8.4 g/dL (12.2-16.2); Lymphocytes # 0.8 K/mm3 (0.7-4.5); Lymphocytes % 14.8 % (10-50); Mean Corpuscular HGB Conc 32.2 g/dL (31.8-35.4); Mean Corpuscular Hemoglobin 35.5 pg (27.0-31.2); Mean Corpuscular Volume 110.3 fl (81-99); Mean Platelet Volume 7.4 fl (7.4-10.4); Monocytes # 0.3 K/mm3 (0.1-1.0); Monocytes % 6.1 % (1.7-9.3); Neutrophils # 4.1 K/mm3 (1.8-7.8); Neutrophils % 78.2 % (37.0-80.0); Platelet Count 224 K/mm3 (142-424); Red Blood Count 2.38 M/mm3 (4.20-5.40); Red Cell Distribution Width 18.8 % (11.5-17.5); White Blood Count 5.3 K/mm3 (4.8-10.8)
[2018-11-01 07:25] LABS: Anion Gap 11.9 mEq/L (5-15); Calcium 7.4 mg/dL (8.5-10.1)
[2018-11-01 07:30] LABS: Potassium 2.9 mmoL/L (3.5-5.1)
[2018-11-01 08:26] LABS: Eosinophils # 0.1 K/mm3 (0.0-0.4); Eosinophils % 0.8 % (0.1-12.0); Hemoglobin 9.1 g/dL (12.2-16.2); Lymphocytes # 0.8 K/mm3 (0.7-4.5); Lymphocytes % 14.2 % (10-50); Mean Corpuscular HGB Conc 31.5 g/dL (31.8-35.4); Mean Corpuscular Volume 110.9 fl (81-99); Mean Platelet Volume 7.5 fl (7.4-10.4); Monocytes # 0.3 K/mm3 (0.1-1.0); Monocytes % 5.3 % (1.7-9.3); Neutrophils # 4.8 K/mm3 (1.8-7.8); Neutrophils % 79.7 % (37.0-80.0); Platelet Count 219 K/mm3 (142-424); Red Blood Count 2.62 M/mm3 (4.20-5.40); Red Cell Distribution Width 18.6 % (11.5-17.5)
[2018-11-01 08:38] LABS: Anion Gap 9.8 mEq/L (5-15); Calcium 7.7 mg/dL (8.5-10.1)
[2018-11-01 08:42] LABS: Potassium 2.8 mmoL/L (3.5-5.1)
--- NOTE | 2018-11-01 08:44 | Progress Note ---
Internal Medicine - PN: Subj *Date: 11/01/18 *Time: 08:49 Interval history: Patient is feeling much better today. She retained liquids yesterday without any difficulty. She has had no further nausea or vomiting. Bowels are moving and colostomy bag she is passed flatus. She remains comfortable although she does have a sore throat. Exam Vital signs and Labs for Last 24 Hours: Temp Pulse Resp BP Pulse Ox 97.6 F 83 16 113/51 L 94 L 11/01/18 04:00 11/01/18 06:06 11/01/18 04:00 11/01/18 04:00 11/01/18 04:00 Laboratory Results - last 24 hr 10/31/18 12:10: POC Glucose 124 H 10/31/18 17:00: POC Glucose 117 H 10/31/18 21:32: POC Glucose 92 11/01/18 05:45: WBC 5.3, RBC 2.38 L, Hgb 8.4 L, Hct 26.2 L, MCV 110.3 H, MCH 35.5 H, MCHC 32.2, RDW 18.8 H, Plt Count 224, MPV 7.4, Neut % (Auto) 78.2, Lymph % (Auto) 14.8, [place] % (Auto) 6.1, Eos % (Auto) 1.0, Baso % (Auto) 0.0 L, Neut # (Auto) 4.1, Lymph # (Auto) 0.8, [place] # (Auto) 0.3, Eos # (Auto) 0.1, Baso # (Auto) 0.0 11/01/18 05:45: Sodium 146 H, Potassium 2.9 L* D, Chloride 113 H, Carbon Dioxide 24, Anion Gap 11.9, BUN 28 H D, Creatinine 0.83 D, Estimated Creat Clear 43, Estimated GFR 68, Est GFR ( Amer) 82 D, Glucose 88 D, Calcium 7.4 L 11/01/18 06:22: POC Glucose 92 11/01/18 08:15: WBC 6.0, RBC 2.62 L, Hgb 9.1 L, Hct 29.0 L, MCV 110.9 H, MCH 35.0 H, MCHC 31.5 L, RDW 18.6 H, Plt Count 219, MPV 7.5, Neut % (Auto) 79.7, Lymph % (Auto) 14.2, [place] % (Auto) 5.3, Eos % (Auto) 0.8, Baso % (Auto) 0.0 L, Neut # (Auto) 4.8, Lymph # (Auto) 0.8, [place] # (Auto) 0.3, Eos # (Auto) 0.1, Baso # (Auto) 0.0 I & O for Last 24 hours: Intake & Output 10/29/18 10/30/18 10/31/18 11/01/18 11:59 11:59 11:59 11:59 Intake Total 1817 / 1817 4269 / 4269 Output Total 1450 / 1450 5100 / 5100 Balance 367 / 367 -831 / -831 Weight 106 lb 114 lb 5 oz 115 lb 5 oz Microbiology Reports for the Last 24 Hours: Microbiology 10/30/18 17:20 Sputum - Expectorated Sputum Gram Stain - Final 10/30/18 17:20 Sputum - Expectorated Sputum Sputum Culture - Final Normal Respiratory Eva - Constitutional no acute distress Comments: Sitting up in the bed eating oatmeal. Appears comfortable. - *Routine Respiratory Exam Present: CTA bilaterally (Anteriorly and posteriorly) - *Routine Cardiovascular Exam Present: RRR - *Routine Abdominal Exam Present: soft, normoactive bowel sounds. Absent: tenderness - *Routine Extremities Exam Absent: edema, calf tenderness Comments: NICHOLE rebolledo on - *Routine Neurological Exam Present: alert, oriented X3 Assessment and Plan (1) Carcinomatosis Current visit: Yes Status: Acute Category: Medical Code(s): C80.0 - Disseminated malignant neoplasm, unspecified (2) H/O colon cancer, stage IV Current visit: Yes Status: Acute Category: Medical Code(s): Z85.038 - Personal history of other malignant neoplasm of large intestine (3) Vomiting Current visit: Yes Status: Acute Category: Medical Code(s): R11.10 - Vomiting, unspecified (4) Dehydration Current visit: Yes Status: Acute Category: Medical Code(s): E86.0 - Dehydration (5) Acute renal insufficiency Current visit: Yes Status: Acute Category: Medical Code(s): N28.9 - Disorder of kidney and ureter, unspecified (6) Pneumonia Current visit: Yes Status: Acute Category: Medical Code(s): J18.9 - Pneumonia, unspecified organism - Assessment and plan all Dx Assessment and Plan for all problems:: Patient's labs are drastically different today. Both today and yesterday's labs were determined from blood drawn from her port. We will repeat labs with venous stick. Hypokalemic potassium p.o. and IV. Will advance diet.
--- NOTE | 2018-11-02 07:53 | Progress Note ---
Internal Medicine - PN: Subj *Date: 11/02/18 *Time: 07:50 Interval history: Patient has issues this a.m. She has a sore on her left knee; she has severe heartburn; she still has a sore throat. Son is in the room. He is concerned about her activity with her weakness. She does live alone. Family did purchase a walker for her. Son discussed with her weakness and possibility of falling and would like for her to see physical therapy. He would also like for Dr. Gupta to see the patient. Patient denies cough, shortness of breath, and pain. She did walk to the bathroom with assistance and sat in the chair briefly. She has had no further nausea or vomiting. She did not eat food yesterday but was able to drink fluids. Labs are pending and are just now being drawn. Exam Vital signs and Labs for Last 24 Hours: Temp Pulse Resp BP Pulse Ox 97.6 F 89 16 172/60 H 97 11/02/18 04:00 11/02/18 06:17 11/02/18 04:00 11/02/18 04:00 11/02/18 04:00 Laboratory Results - last 24 hr 11/01/18 08:15: WBC 6.0, RBC 2.62 L, Hgb 9.1 L, Hct 29.0 L, MCV 110.9 H, MCH 35.0 H, MCHC 31.5 L, RDW 18.6 H, Plt Count 219, MPV 7.5, Neut % (Auto) 79.7, Lymph % (Auto) 14.2, [place] % (Auto) 5.3, Eos % (Auto) 0.8, Baso % (Auto) 0.0 L, Neut # (Auto) 4.8, Lymph # (Auto) 0.8, [place] # (Auto) 0.3, Eos # (Auto) 0.1, Baso # (Auto) 0.0 11/01/18 08:15: Sodium 145, Potassium 2.8 L*, Chloride 112 H, Carbon Dioxide 26, Anion Gap 9.8, BUN 25 H, Creatinine 0.86, Estimated Creat Clear 43, Estimated GFR 65, Est GFR ( Amer) 79, Glucose 97, Calcium 7.7 L I & O for Last 24 hours: Intake & Output 04/28/10/31/18 11/01/18 11/02/18 11:59 11:59 11:59 11:59 Intake Total 1817 / 1817 4749 / 4749 2912 / 2912 Output Total 1450 / 1450 5100 / 5100 2851 / 2851 Balance 367 / 367 -351 / -351 61 / 61 Weight 106 lb 114 lb 5 oz 115 lb 5 oz 114 lb 5 oz Microbiology Reports for the Last 24 Hours: Microbiology 10/30/18 11:20 Blood Blood Culture - Preliminary NO GROWTH AFTER 48 HOURS 10/30/18 11:20 Blood Blood Culture - Preliminary NO GROWTH AFTER 48 HOURS 10/30/18 17:20 Sputum - Expectorated Sputum Gram Stain - Final 10/30/18 17:20 Sputum - Expectorated Sputum Sputum Culture - Final Normal Respiratory Eva - Constitutional no acute distress Comments: Sitting up in the bed drinking fluids. - *Routine Respiratory Exam Present: CTA bilaterally (Anteriorly and posteriorly) - *Routine Cardiovascular Exam Present: RRR - *Routine Abdominal Exam Present: soft, normoactive bowel sounds. Absent: tenderness - *Routine Extremities Exam Absent: edema Comments: NICHOLE rebolledo on - *Routine Neurological Exam Present: alert, oriented X3 Assessment and Plan (1) Carcinomatosis Current visit: Yes Status: Acute Category: Medical Code(s): C80.0 - D isseminated malignant neoplasm, unspecified (2) H/O colon cancer, stage IV Current visit: Yes Status: Acute Category: Medical Code(s): Z85.038 - Personal history of other malignant neoplasm of large intestine (3) Vomiting Current visit: Yes Status: Acute Category: Medical Code(s): R11.10 - Vomiting, unspecified (4) Dehydration Current visit: Yes Status: Acute Category: Medical Code(s): E86.0 - Dehydration (5) Acute renal insufficiency Current visit: Yes Status: Acute Category: Medical Code(s): N28.9 - D isorder of kidney and ureter, unspecified (6) Pneumonia Current visit: Yes Status: Acute Category: Medical Code(s): J18.9 - Pneumonia, unspecified organism (7) Muscle weakness (generalized) Current visit: Yes Status: Acute Category: Medical Code(s): M62.81 - Muscle weakness (generalized) - Assessment and plan all Dx Assessment and Plan for all problems:: Await results of labs. Maalox ordered as needed for heartburn. Zovirax monitor for lip lesion. Nystatin ordered for male to swish and swallow. Physical therapy has been consulted. Referral /consult with Dr. Gupta placed. Dr. Gupta will be here 11/03/2018
[2018-11-02 08:39] LABS: Basophils % 0.3 % (0.1-2.0); Eosinophils # 0.1 K/mm3 (0.0-0.4); Eosinophils % 1.2 % (0.1-12.0); Hematocrit 27.6 % (37.0-47.0); Hemoglobin 8.9 g/dL (12.2-16.2); Lymphocytes # 1.1 K/mm3 (0.7-4.5); Lymphocytes % 18.8 % (10-50); Mean Corpuscular HGB Conc 32.1 g/dL (31.8-35.4); Mean Corpuscular Hemoglobin 35.1 pg (27.0-31.2); Mean Corpuscular Volume 109.3 fl (81-99); Mean Platelet Volume 7.1 fl (7.4-10.4); Monocytes # 0.4 K/mm3 (0.1-1.0); Neutrophils # 4.5 K/mm3 (1.8-7.8); Neutrophils % 73.8 % (37.0-80.0); Platelet Count 244 K/mm3 (142-424); Red Blood Count 2.52 M/mm3 (4.20-5.40); Red Cell Distribution Width 18.6 % (11.5-17.5)
[2018-11-02 08:43] LABS: Anion Gap 15.9 mEq/L (5-15); Calcium 7.5 mg/dL (8.5-10.1); Potassium 2.9 mmoL/L (3.5-5.1)
[2018-11-03 07:04] LABS: Anion Gap 15.2 mEq/L (5-15); Calcium 7.5 mg/dL (8.5-10.1); Potassium 3.2 mmoL/L (3.5-5.1)
--- NOTE | 2018-11-03 08:32 | Progress Note ---
Internal Medicine - PN: Subj *Date: 11/03/18 *Time: 08:30 Interval history: Patient states she tried to drink through a straw and this gave her some epigastric abdominal pain and heartburn. The nurse is currently bringing her some Maalox. She states she did not rest well last night and was awake numerous times and restless. She continues to remain very weak. Exam Vital signs and Labs for Last 24 Hours: Temp Pulse Resp BP Pulse Ox 98.8 F 92 H 16 119/42 L 98 11/03/18 08:00 11/03/18 08:00 11/03/18 08:00 11/03/18 08:00 11/03/18 08:00 Laboratory Results - last 24 hr 11/02/18 08:15: WBC 6.0, RBC 2.52 L, Hgb 8.9 L, Hct 27.6 L, MCV 109.3 H, MCH 35.1 H, MCHC 32.1, RDW 18.6 H, Plt Count 244, MPV 7.1 L, Neut % (Auto) 73.8, Lymph % (Auto) 18.8, [place] % (Auto) 6.0, Eos % (Auto) 1.2, Baso % (Auto) 0.3, Neut # (Auto) 4.5, Lymph # (Auto) 1.1, [place] # (Auto) 0.4, Eos # (Auto) 0.1, Baso # (Auto) 0.0 11/02/18 08:15: Sodium 142, Potassium 2.9 L*, Chloride 107, Carbon Dioxide 22, Anion Gap 15.9 H, BUN 14 D, Creatinine 0.71, Estimated Creat Clear 42, Estimated GFR 81, Est GFR ( Amer) 98 D, Glucose 87, Calcium 7.5 L 11/03/18 05:47: Sodium 141, Potassium 3.2 L, Chloride 109 H, Carbon Dioxide 20 L , Anion Gap 15.2 H, BUN 10 D, Creatinine 0.67, Estimated Creat Clear 42, Estimated GFR 87, Est GFR ( Amer) 105, Glucose 92, Calcium 7.5 L I & O for Last 24 hours: Intake & Output 10/31/18 11/01/18 11/02/18 11/03/18 11:59 11:59 11:59 11:59 Intake Total 1817 / 1817 4749 / 4749 3152 / 3152 2275 / 2275 Output Total 1450 / 1450 5100 / 5100 2851 / 2851 3275 / 3275 Balance 367 / 367 -351 / -351 301 / 301 -1000 / -1000 Weight 114 lb 5 oz 115 lb 5 oz 114 lb 5 oz 114 lb 9.011 oz - Constitutional no acute distress - *Routine Respiratory Exam Present: CTA bilaterally - *Routine Cardiovascular Exam Present: RRR - *Routine Abdominal Exam Present: soft, normoactive bowel sounds, tenderness (epigastric area) - *Routine Extremities Exam Absent: cyanosis, clubbing, edema Assessment and Plan (1) Carcinomatosis Current visit: Yes Status: Acute Category: Medical Code(s): C80.0 - Disseminated malignant neoplasm, unspecified (2) H/O colon cancer, stage IV Current visit: Yes Status: Acute Category: Medical Code(s): Z85.038 - Personal history of other malignant neoplasm of large intestine (3) Vomiting Current visit: Yes Status: Acute Category: Medical Code(s): R11.10 - Vomiting, unspecified (4) Dehydration Current visit: Yes Status: Acute Category: Medical Code(s): E86.0 - Dehydration (5) Acute renal insufficiency Current visit: Yes Status: Acute Category: Medical Code(s): N28.9 - Disorder of kidney and ureter, unspecified (6) Pneumonia Current visit: Yes Status: Acute Category: Medical Code(s): J18.9 - Pneumonia, unspecified organism (7) Muscle weakness (generalized) Current visit: Yes Status: Acute Category: Medical Code(s): M62.81 - Muscl e weakness (generalized) - Assessment and plan all Dx Assessment and Plan for all problems:: Potassium is improving. Dr. Gupta to see the patient today in consultation. Will discuss further care with Dr. sr.
--- NOTE | 2018-11-03 10:07 | Progress Note ---
Internal Medicine - PN: Subj *Date: 11/03/18 *Time: 10:06 Exam Vital signs and Labs for Last 24 Hours: Temp Pulse Resp BP Pulse Ox 98.8 F 92 H 16 119/42 L 98 11/03/18 08:00 11/03/18 08:00 11/03/18 08:00 11/03/18 08:00 11/03/18 08:00 Laboratory Results - last 24 hr 11/03/18 05:47: Sodium 141, Potassium 3.2 L, Chloride 109 H, Carbon Dioxide 20 L , Anion Gap 15.2 H, BUN 10 D, Creatinine 0.67, Estimated Creat Clear 42, Estimated GFR 87, Est GFR ( Amer) 105, Glucose 92, Calcium 7.5 L I & O for Last 24 hours: Intake & Output 10/31/18 11/01/18 11/02/18 11/03/18 23:59 23:59 23:59 23:59 Intake Total 4504 / 4504 3802 / 3802 2685 / 2685 480 / 480 Output Total 2800 / 2800 4551 / 4751 3550 / 3800 1775 / 1775 Balance 1704 / 1704 -749 / -949 -865 / -1115 -1295 / -1295 Weight 51.851 kg 52.305 kg 51.851 kg 51.965 kg Assessment and Plan (1) Carcinomatosis Current visit: Yes Status: Acute Category: Medical Code(s): C80.0 - Disseminated malignant neoplasm, unspecified (2) H/O colon cancer, stage IV Current visit: Yes Status: Acute Category: Medical Code(s): Z85.038 - Personal history of other malignant neoplasm of large intestine (3) Vomiting Current visit: Yes Status: Acute Category: Medical Code(s): R11.10 - Vomiting, unspecified (4) Dehydration Current visit: Yes Status: Acute Category: Medical Code(s): E86.0 - Dehydration (5) Acute renal insufficiency Current visit: Yes Status: Acute Category: Medical Code(s): N28.9 - Disorder of kidney and ureter, unspecified (6) Pneumonia Current visit: Yes Status: Acute Category: Medical Code(s): J18.9 - Pneumonia, unspecified organism (7) Muscle weakness (generalized) Current visit: Yes Status: Acute Category: Medical Code(s): M62.81 - Muscle weakness (generalized) The patient's infection will respond to the chosen ABx?: Yes Is the patient receiving the right drug, dose, and route?: Yes Could a more targeted ABx be ordered?: No (AFEBRILE, CONTINUE ABX)
--- NOTE | 2018-11-03 15:54 | Consult Report ---
*Admission Date: 10/30/18 *History of present illness: pt with metastatic colon cancer to liver. pt recently progressed through chemo. received one cycle of oxalipaltin with xeloda and avastin. progressive weakness, n/v since treatment. being treated for pna. son at bedside. starting to feel some better. plan rehab at discharge. [facility] History Medical History: Reports:: Anxiety, Asthma, Cancer, Depression, Diabetes Mellitus Type 2, Heart Murmur, Hypertension Denies:: Diabetes Mellitus Type 1, MRSA, Seizures *Have you ever received a pneumonia vaccine?: Yes *Have you received a flu vaccine this season?: Yes Other Medical History: Reports: Anemia, Arthritis, Sinus Problems. Denies: Blood Transfusion Reaction Other Surgeries: Yes: Colostomy, Hysterectomy-Total, Tubal Ligation, Other Amputation: No Fractures: No - *Social History Smoking Status: Former smoker Tobacco Type: cigarettes Alcohol Intake: never Alcohol Intake Frequency:: holidays/special occasions only Substance Use Type: denies use *Occupational Status:: retired Housing: house Household Members: family *Travel in the last 8 weeks: None - Psychiatric History Expresses thoughts of harming self/others: None Suicide Plan Description: No Plan Pschychiatric History:: Reports:: Anxiety, Depression Family Hx:: Heart Attack, Cancer, Thyroid Disorder Review of Systems - *Neurologic Reports unsteadiness, Reports dizziness, Reports weakness, Denies frequent fall s, Denies seizure-like activity Meds Home Medications Medication Instructions Recorded Confirmed Type Aspirin [Aspirin 81mg EC Tab] 81 mg PO HS 07/27/17 10/30/18 History Mirtazapine [Remeron 15mg tablet] 15 mg PO HS 10/27/17 10/30/18 History Cholecalciferol (Vitamin D3) 1,000 unit PO DAILY 12/01/17 10/30/18 History [Vitamin D3 1,000 Unit Cap] Cyanocobalamin (Vitamin B-12) 1,000 mcg PO DAILY 12/01/17 10/30/18 History [Vitamin B-12 1000mcg Tablet] Potassium Chloride [Micro-K 10mEq 10 meq PO TID 12/01/17 10/30/18 History cap] Triamterene/Hydrochlorothiazid 0.5 each PO DAILY 12/01/17 10/30/18 History [Dyazide 37.5-25 Capsule] Capecitabine [Xeloda] 1,500 mg PO BID 01/03/18 10/30/18 History Polymyxin B Sulf/Trimethoprim 1 drp EYE-BOTH TID 10/30/18 10/30/18 History [Polytrim Ophth Soln 10mL Bottle] Naphazoline HCl/Pheniramine 1 drp OP TID 10/31/18 10/31/18 History [Naphcon-A Eye Drops] Ramipril [Altace] 2.5 mg PO DAILY 10/31/18 10/31/18 History Acetaminophen [Acetaminophen 325mg 650 mg PO Q4HP PRN 11/01/18 11/01/18 History tab] Ondansetron HCl [Ondansetron 8mg 8 mg PO TIDP PRN 11/01/18 11/01/18 History Tablet] Allergies Allergy/AdvReac Type Severity Reaction Status Date / Time No Known Allergies Allergy Verified 10/27/18 09:35 Exam Vital signs and Labs for Last 24 Hours: Temp Pulse Resp BP Pulse Ox 98.5 F 80 17 116/60 98 11/03/18 15:04 11/03/18 15:04 11/03/18 15:04 11/03/18 15:04 11/03/18 15:04 Laboratory Results - last 24 hr 11/03/18 05:47: Sodium 141, Potassium 3.2 L, Chloride 109 H, Carbon Dioxide 20 L , Anion Gap 15.2 H, BUN 10 D, Creatinine 0.67, Estimated Creat Clear 42, Estimated GFR 87, Est GFR ( Amer) 105, Glucose 92, Calcium 7.5 L I & O for Last 24 hours: Intake & Output 11/01/18 11/02/18 11/03/18 11/04/18 11:59 11:59 11:59 11:59 Intake Total 4749 / 4749 3152 / 3152 2275 / 2275 360 / 360 Output Total 5100 / 5100 2851 / 2851 3400 / 3400 Balance -351 / -351 301 / 301 -1125 / -1125 360 / 360 Weight 115 lb 5 oz 114 lb 5 oz 114 lb 9.011 oz Internal Medicine - CN: Reslt - Labs CBC & Chem 7: 11/02/18 08:15 11/03/18 05:47 Labs: [facility] 11/03/18 05:47 Sodium 141 Potassium 3.2 L Chloride 109 H Carbon Dioxide 20 L BUN 10 D Creatinine 0.67 Glucose 92 Calcium 7.5 L Assessment and Plan (1) Carcinomatosis Current visit: Yes Status: Acute Category: Medical Code(s): C80.0 - Disseminated malignant neoplasm, unspecified (2) H/O colon cancer, stage IV Current visit: Yes Status: Acute Category: Medical Code(s): Z85.038 - Personal history of other malignant neoplasm of large intestine (3) Vomiting Current visit: Yes Status: Acute Category: Medical Code(s): R11.10 - Vomiting, unspecified (4) Dehydration Current visit: Yes Status: Acute Category: Medical Code(s): E86.0 - Dehydration (5) Acute renal insufficiency Current visit: Yes Status: Acute Category: Medical Code(s): N28.9 - Disorder of kidney and ureter, unspecified (6) Pneumonia Current visit: Yes Status: Acute Category: Medical Code(s): J18.9 - Pneumonia, unspecified organism (7) Muscle weakness (generalized) Current visit: Yes Status: Acute Category: Medical Code(s): M62.81 - Muscle weakness (generalized) - Assessment and plan all Dx Assessment and Plan for all problems:: met colorectal cancer- will need to improve significatnly before considering additional chemo. d/w pt and son options rehab vs comfort care. they are most interested in rehab at this time. pna- abx per primary disp- plan rehab at d/c.
--- NOTE | 2018-11-04 08:27 | Progress Note ---
Internal Medicine - PN: Subj *Date: 11/04/18 *Time: 08:25 Interval history: Patient states she is feeling better today. Gas-X was ordered yesterday and this helped significantly with her epigastric discomfort. She has been able to eat and slept better last night. She denies any shortness of breath. Exam Vital signs and Labs for Last 24 Hours: Temp Pulse Resp BP Pulse Ox 98.4 F 93 H 15 109/74 L 96 11/04/18 08:00 11/04/18 08:00 11/04/18 08:00 11/04/18 08:00 11/04/18 08:00 I & O for Last 24 hours: Intake & Output 11/01/18 11/02/18 11/03/18 11/04/18 11:59 11:59 11:59 11:59 Intake Total 4749 / 4749 3152 / 3152 2275 / 2275 720 / 720 Output Total 5100 / 5100 2851 / 2851 3400 / 3400 1450 / 1450 Balance -351 / -351 301 / 301 -1125 / -1125 -730 / -730 Weight 115 lb 5 oz 114 lb 5 oz 114 lb 9.011 oz 112 lb 6 oz - Constitutional no acute distress - *Routine Respiratory Exam Present: CTA bilaterally - *Routine Cardiovascular Exam Present: RRR - *Routine Abdominal Exam Present: soft, normoactive bowel sounds. Absent: tenderness - *Routine Extremities Exam Absent: cyanosis, clubbing, edema Assessment and Plan (1) Carcinomatosis Current visit: Yes Status: Acute Category: Medical Code(s): C80.0 - Disseminated malignant neoplasm, unspecified (2) H/O colon cancer, stage IV Current visit: Yes Status: Acute Category: Medical Code(s): Z85.038 - Personal history of other malignant neoplasm of large intestine (3) Vomiting Current visit: Yes Status: Acute Category: Medical Code(s): R11.10 - Vomiting, unspecified (4) Dehydration Current visit: Yes Status: Acute Category: Medical Code(s): E86.0 - Dehydration (5) Acute renal insufficiency Current visit: Yes Status: Acute Category: Medical Code(s): N28.9 - Disorder of kidney and ureter, unspecified (6) Pneumonia Current visit: Yes Status: Acute Category: Medical Code(s): J18.9 - Pneumonia, unspecified organism (7) Muscle weakness (generalized) Current visit: Yes Status: Acute Category: Medical Code(s): M62.81 - Muscle weakness (generalized) - Assessment and plan all Dx Assessment and Plan for all problems:: Dr. Gupta's note reviewed. Patient states she has a bed at [facility] and would like to proceed with rehab. Discussed further care with Dr. Ricketts.
--- NOTE | 2018-11-04 10:39 | Discharge Summary ---
General - General Admission date:: 10/30/18 Discharge date: 11/04/18 HPI HPI: Ms. Hall is a 73-year-old female with a history of type 2 diabetes mellitus and metastatic carcinoma who is followed by Dr. Gupta. She states she received her latest chemotherapy 2 weeks ago and has not done well since. She has experienced nausea with vomiting for the 2-week.. She has been unable to eat and drink. Yesterday she felt so badly she requested her family to bring her to the hospital. She was very weak and unable to ambulate without help. With evaluation in the emergency room patient she was found to be dehydrated and in renal failure. Chest x-ray also revealed a pneumonia. She was started on IV fluids and admitted for further evaluation and treatment. CT of the abdomen and pelvis revealed gas-filled loops of small and large intestine and an NG tube was placed. This a.m. patient's biggest complaint is the NG tube. She requested it be removed. She has a sore throat from this. She has had no further vomiting and denies nausea. She would like to have liquids. Bowels have been moving in her colostomy bag. She has a Henson catheter. Hospital Course Hospital Course: The patient's NG tube was discontinued and she was started on a full liquid diet. Her potassium was a little elevated, therefore her IV fluids were changed to normal saline at 125 an hour. Her glucose was elevated, therefore she was started on sliding scale insulin. She was continued on IV antibiotics and was started on duo nebs. She had no further vomiting but did still have episodes of nausea. Her potassium was found to be low on repeat blood work, which was drastically different from her initial labs, therefore she was started on p.o. and IV potassium. She tolerated her diet and it was advanced. She did began alexander ving severe heartburn, therefore Maalox was ordered. She remained weak and her family was unsure if she would be able to return home by herself. They wanted physical therapy to be consulted. They also requested that Dr. Gupta see the patient as she was following her as her oncologist. Physical Therapy felt it was unsafe for the patient to return home alone with a flight of stairs to enter her house. They felt she should have short-term rehabilitation. The patient continued with some episodes of gas and heartburn, therefore simethicone was added. Between the Maalox and the simethicone, her heartburn improved significantly and she was able to tolerate her diet. Her potassium did improve as well. Dr. Gupta saw the patient in consultation. She gave the family the option of rehab versus comfort care and they were interested in rehab. A bed was found for the patient at [facility] for short-term rehabilitation. She is stable to be discharged there today. Her sputum and blood cultures were both negative. She will need a repeat CBC and CMP in 1 week. Objective Vital signs: Temp Pulse Resp BP Pulse Ox 98.4 F 93 H 15 109/74 L 96 11/04/18 08:00 11/04/18 08:00 11/04/18 08:00 11/04/18 08:00 11/04/18 08:00 Narrative: - Constitutional no acute distress - *Routine HEENT Exam Head: Present: normocephalic, atraumatic Eye: Present: PERRL. Absent: conjunctival icterus, scleral injection ENT: Present: mucous membranes moist Comments: NG tube in place - *Routine Neck Exam Present: supple. Absent: carotid bruit, lymphadenopathy, thyromegaly - *Routine Respiratory Exam Present: CTA bilaterally (Anteriorly and posteriorly) - *Routine Cardiovascular Exam Present: RRR - *Routine Abdominal Exam Present: soft, normoactive bowel sounds. Absent: tenderness Comments: Colostomy bag located in left lower quadrant - *Routine Extremities Exam Absent: edema, calf tenderness - *Routine Neurological Exam Present: alert, oriented X3 Results Labs on day of discharge: Preliminary micro results at discharge 10/30/18 11:20 Blood Culture - Preliminary Blood NO GROWTH AFTER 48 HOURS 10/30/18 11:20 Blood Culture - Preliminary Blood NO GROWTH AFTER 48 HOURS DS: Diagnosis - Discharge Diagnosis (1) Carcinomatosis Status: Acute (2) H/O colon cancer, stage IV Status: Acute (3) Vomiting Status: Acute (4) Dehydration Status: Acute (5) Acute renal insufficiency Status: Acute (6) Pneumonia Status: Acute (7) Muscle weakness (generalized) Status: Acute Discharge Plan - Patient Discharge Instructions ACTIVITY: Continue current activity DIET: continue same diet Patient Instructions: DI for Kidney Failure, DI for Pneumonia -- Adult, Acute Renal Failure, DI for Sepsis -- Adult - Follow up Plan Follow up with: Kymberly Ricketts MD [Primary Care Provider] - Disposition: er [facility] Home Medications: Home Medications Medication Instructions Recorded Confirmed Type Aspirin [Aspirin 81mg EC Tab] 81 mg PO HS 07/27/17 10/30/18 History Mirtazapine [Remeron 15mg tablet] 15 mg PO HS 10/27/17 10/30/18 History Cholecalciferol (Vitamin D3) 1,000 unit PO DAILY 12/01/17 10/30/18 History [Vitamin D3 1,000 Unit Cap] Cyanocobalamin (Vitamin B-12) 1,000 mcg PO DAILY 12/01/17 10/30/18 History [Vitamin B-12 1000mcg Tablet] Potassium Chloride [Micro-K 10mEq 10 meq PO TID 12/01/17 10/30/18 History cap] Capecitabine [Xeloda] 1,500 mg PO BID 01/03/18 10/30/18 History Polymyxin B Sulf/Trimethoprim 1 drp EYE-BOTH TID 10/30/18 10/30/18 History [Polytrim Ophth Soln 10mL Bottle] Naphazoline HCl/Pheniramine 1 drp OP TID 10/31/18 10/31/18 History [Naphcon-A Eye Drops] Ramipril [Altace] 2.5 mg PO DAILY 10/31/18 10/31/18 History Acetaminophen [Acetaminophen 325mg 650 mg PO Q4HP PRN 11/01/18 11/01/18 History tab] Ondansetron HCl [Ondansetron 8mg 8 mg PO TIDP PRN 11/01/18 11/01/18 History Tablet] Cefdinir [Omnicef 300mg Capsule] 300 mg PO BID #14 cap 11/04/18 Rx Nystatin [Nystatin Susp 500,000 500,000 unit PO QID #30 udc 11/04/18 Rx Units/5mL Udc] Prescriptions/Medication Reconciliation: New Nystatin [Nystatin Susp 500,000 Units/5mL Udc] 500,000 unit PO QID #30 udc Cefdinir [Omnicef 300mg Capsule] 300 mg PO BID #14 cap Continued Aspirin [Aspirin 81mg EC Tab] 81 mg PO HS Mirtazapine [Remeron 15mg tablet] 15 mg PO HS Acetaminophen [Acetaminophen 325mg tab] 650 mg PO Q4HP PRN PRN Reason: As Needed For Fever Or Pain Potassium Chloride [Micro-K 10mEq cap] 10 meq PO TID Cyanocobalamin (Vitamin B-12) [Vitamin B-12 1000mcg Tablet] 1,000 mcg PO DAILY Cholecalciferol (Vitamin D3) [Vitamin D3 1,000 Unit Cap] 1,000 unit PO DAILY Capecitabine [Xeloda] 1,500 mg PO BID Polymyxin B Sulf/Trimethoprim [Polytrim Ophth Soln 10mL Bottle] 1 drp EYE- BOTH TID Ramipril [Altace] 2.5 mg PO DAILY Naphazoline HCl/Pheniramine [Naphcon-A Eye Drops] 1 drp OP TID Ondansetron HCl [Ondansetron 8mg Tablet] 8 mg PO TIDP PRN PRN Reason: Nausea Discontinued Triamterene/Hydrochlorothiazid [Dyazide 37.5-25 Capsule] 0.5 each PO DAILY
--- NOTE | 2018-11-04 13:20 | Progress Note ---
Internal Medicine - PN: Subj *Date: 11/04/18 *Time: 13:20 Exam Vital signs and Labs for Last 24 Hours: Temp Pulse Resp BP Pulse Ox 97.4 F L 88 16 122/64 97 11/04/18 11:26 11/04/18 11:26 11/04/18 11:26 11/04/18 11:26 11/04/18 11:26 I & O for Last 24 hours: Intake & Output 11/02/18 11/03/18 11/04/18 11/05/18 11:59 11:59 11:59 11:59 Intake Total 3152 / 3152 2275 / 2275 840 / 840 Output Total 2851 / 2851 3400 / 3400 1800 / 1800 Balance 301 / 301 -1125 / -1125 -960 / -960 Weight 114 lb 5 oz 114 lb 9.011 oz 112 lb 6 oz Microbiology Reports for the Last 24 Hours: Microbiology 10/30/18 11:20 Blood Blood Culture - Final NO GROWTH AFTER 5 DAYS 10/30/18 11:20 Blood Blood Culture - Final NO GROWTH AFTER 5 DAYS Assessment and Plan (1) Carcinomatosis Current visit: Yes Status: Acute Category: Medical Code(s): C80.0 - Disseminated malignant neoplasm, unspecified (2) H/O colon cancer, stage IV Current visit: Yes Status: Acute Category: Medical Code(s): Z85.038 - Personal history of other malignant neoplasm of large intestine (3) Vomiting Current visit: Yes Status: Acute Category: Medical Code(s): R11.10 - Vomiting, unspecified (4) Dehydration Current visit: Yes Status: Acute Category: Medical Code(s): E86.0 - Dehydration (5) Acute renal insufficiency Current visit: Yes Status: Acute Category: Medical Code(s): N28.9 - Disorder of kidney and ureter, unspecified (6) Pneumonia Current visit: Yes Status: Acute Category: Medical Code(s): J18.9 - Pneumonia, unspecified organism (7) Muscle weakness (generalized) Current visit: Yes Status: Acute Category: Medical Code(s): M62.81 - Muscle weakness (generalized) (8) Hypokalemia Current visit: Yes Status: Acute Category: Medical Code(s): E87.6 - Hypokalemia
== END 2018-11-04 15:45 | DRG 194 ==
LOC: ER 11:07 → 2ND 15:48
PROVIDERS: ADMIT Family Medicine; ATTEND Family Medicine
CPT/HCPCS: 36415; 43760; 43762; 71010; 71045; 71250; 74176; 80048; 80053; 81001; 82962; 83605; 83690; 83735; 85007; 85025; 87040; 87070; 87205; 94640; 94761; 96360; 96365; 96366; 96375; 97110; 97116; 97162; 97530; 99285; J0456; J1642

== ENCOUNTER 2018-12-21 12:42 | Outpatient (CLI) | payer MEDICARE, BC, SELFPAY | END 2018-12-21 12:55 | disposition home or self-care (01) | LOC: INF 12:42 | PROVIDERS: Visit Provider Internal Medicine Medical Oncology | DX: C18.9 Malignant neoplasm of colon, unspecified (principal); Z45.2 Encounter for adjustment and management of vascular access device | CPT/HCPCS: 96523; J1642 ==

== ENCOUNTER 2018-12-23 13:14 | Outpatient (CLI) | payer MEDICARE, BC, SELFPAY ==
[2018-12-23 12:59] VITALS: BMI 19.3
--- NOTE | 2018-12-23 13:24 | CT_ITS ---
CT abdomen pelvis w con INDICATION: HISTORY of metastatic colon cancer. And metastatic disease... ITS.REASON: COLON CA ORDERING PHYSICIAN: Johana Gupta MD PATIENT AGE: 73 years COMPARISON: Previous CT abdomen pelvis from October, . TECHNIQUE: 75 cc Isovue Optiray 350 IV contrast.... Also Oral Redicat contrast utilized Axial images obtained with sagittal and coronal reformats. All CT scans at the facility use one or more dose reduction, viz: automated exposure control, ma/kV adjustment per patient size (including targeted exams where dose is matched to indication, i.e. head), or iterative reconstruction technique. FINDINGS: Lung bases multiple metastatic nodules at both lung bases. See separate CT chest report from today LIVER. Progressive Enlargement of the large metastatic lesion at left lobe of liver ( segment 3-). This metastatic mass now measures up to 5 cm.. Previously was 3.5 cm in October 2018 There is also progressive enlargement of large metastatic mass at the dome of right lobe liver ( segment 8 extending towards segment 7). This prominent lesion measures up to 5.2 cm transverse x 4.3 cm today... Today's transverse measurement most evident towards the dome. Includes small confluent satellite nodule along its lateral margin... There are multiple confluent in adjacent satellite extending both towards the dome as well as inferior from this dominant lesion. No biliary ductal dilatation. Gallbladder Multiple gas containing gallstones again noted filling gallbladder. Mild enhancement gallbladder wall. This was seen on October 2018 CT with contrast unchanged. Could reflect some mild chronic inflammation of gallbladder wall Pancreas unremarkable. Adrenals unremarkable Spleen unremarkable. No retroperitoneal adenopathy. Diffuse atherosclerotic calcification aorta and iliacs. KIDNEYS/ TRACT. No urinary tract calculi nor obstruction. Stable benign 3.5 cm cm cyst posterior right kidney Ureters unremarkable. Bladder urinary bladder unremarkable. GI TRACT. Ostomy left lower quadrant.. Suspect Proximal sigmoid region may been resected. Note numerous diverticuli within remaining distal sigmoid colon.. Slight hazy appearance about this again noted to remain stable with no discrete acute findings at pelvis. No free fluid. No free air. Also note Generous wall thickness distal rectum towards anal verge which may benefit from correlation.. . Moderate Residual stool seen again at rectum. . Terminal ileum unremarkable. No evidence of appendicitis. Small bowel appears normal. Air-fluid levels, air-contrast levels at the right and transverse colon reflecting liquid stool. Stomach. Upper normal wall thickness posterior fundus but may merely reflect lack of distention similar appearance seen in October. No pelvic or retroperitoneal nor mesenteric adenopathy or mass. Bones.: No destructive or lytic or blastic metastatic lesions. Degenerative changes of the spine similar to previous study. No significant new osseous findings. IMPRESSION: ...... 1. . Progression of prominent hepatic metastatic lesions since October 2018 2... Progression of multiple metastatic nodules at the lung bases bilaterally-as discussed in CT chest report 3. Left lower quadrant colostomy again noted. .. Postsurgical changes from partial sigmoid resection..Prominent diverticulosis within remaining redundant distal sigmoid colon.. ... Upper normal to slight wall thickness towards the anal verge . 4. Cholelithiasis with mild enhancement of gallbladder wall again noted
--- NOTE | 2018-12-23 13:24 | CT_ITS ---
CT chest wo con HISTORY: Progressive Pulmonary Metastatic disease ITS.REASON: COLON CA ORDERING PHYSICIAN: Johana Gupta MD PATIENT AGE: 73 years COMPARISON: Previous October 30, 2018 and December 10, 2017 CT chest Technique: Axial images obtained. Sagittal and coronal reformatted images are also generated and reviewed. All CT scans at the facility use one or more dose reduction, viz: automated exposure control, ma/kV adjustment per patient size (including targeted exams where dose is matched to indication, i.e. head), or iterative reconstruction technique. FINDINGS: LUNGS. Multiple round metastatic pulmonary lesions, seen throughout the lung perla bilaterally. These are shown definite, and prominent progression in both number and size. Throughout the lung perla bilaterally. Nodules too numerous to count RIGHT LUNG..: Numerous generous size nodules particularly notable posterior right lower lobe, as seen axial images of this region as well as coronal image 56-58. All these nodules have become significantly larger versus previous study... The largest nodule here measuring nearly 2 cm size, as seen on axial image 48.-. Multiple other nodules nearly this size also observed posterior right lower lobe The the prominent focal area of density R UL appears similar, but slightly smaller. There is cavitation at the anterior aspect of this region which has diminished in size. This features seems seems slightly smaller medially, but has extends laterally there is similar if not increased mainly more generous soft tissue density peripherally as seen on coronal image 37. . Currently measures 2 cm height vs previously 2.[address] LEFT LUNG: The significant progression & enlargement metastatic nodules throughout left lung. These tend to be distributed more so to the posterior aspect of the left lung and most evident at the posterior LLL. One of the largest nodules at the posterior left lung base measures nearly 2 cm hyperintense 18.5 mm Diameter on axial image 57. ( Previously it measured less than 1 cm diameter on axial images). HEART: Unremarkable. Normal heart size. No significant pericardial effusion. MEDIASTINAL NODES-slight progression. A precarinal node, seen on coronal image 27 is larger now measuring up to 18 mm height x 15 mm transverse.- It previously measured 1 cm transverse. A right paratracheal node just superior to this incrementally larger now measuring 17 mm AP, 10.5 mm transverse. (Previous 16 mm) Moderate Calcified subcarinal nodes stable reflect over granulomatous disease No Hilar adenopathy or mass. Aorta and pulmonary artery unremarkable. Port-A-Cath enters from left with tip at SVC at its junction with the right atrium. Right thyroid enlargement again noted. At least 1 cm nodule vaguely seen here. This is been previously noted No pleural effusion.. Multiple metastatic pulmonary nodules have a pleural-based . Osseous/Chest wall. No destructive or sclerotic osseous lesions evident. Ribs appear grossly intact as does T-spine unremarkable with no osseous lesions. No axillary adenopathy . ...... IMPRESSION: ............... 1. Marked Progression of metastatic disease throughout the lung perla bilaterally Since October 2018 2. I would note the focal irregular mass of different character at RUL (with diminishing cavitation), appears fairly stable, with its central portion incrementally smaller ...... However the innumerable round metastatic deposits throughout the lung perla have shown prominent increase in number and size, since October 2018 3. . Slight progression of mediastinal nodes . Enlarged node at precarinal region and just superior to this towards right paratracheal region. . No hilar adenopathy. . No chest wall lesio
[2018-12-23 13:38] LABS: Blood Urea Nitrogen 12 mg/dL (7-18); Creatinine Clearance Estimated 38 mL/min (50-200); Creatinine,Serum 0.65 mg/dL (0.55-1.02); Estimated Glomerular Filt Rate 90 ml/min (>60); GFR (African American) 109 ML/MIN (>60)
== END 2018-12-23 14:15 | disposition home or self-care (01) ==
LOC: RAD 13:16 → INF 14:39
PROVIDERS: PCP Family Medicine; Visit Provider Internal Medicine Medical Oncology
DX: C18.9 Malignant neoplasm of colon, unspecified (principal)
CPT/HCPCS: 71250; 74177; 82565; 84520; J1642; Q9967

== ENCOUNTER 2019-01-02 10:00 | Outpatient (CLI) | payer MEDICARE, BC, SELFPAY ==
[2019-01-02 10:09] VITALS: BMI 20.5
[2019-01-02 10:30] VITALS: BP 122/78; PULSE 68; RESP 20; TEMP 36.9; O2SAT 98
[2019-01-02 10:33] LABS: Basophils # 0.1 K/mm3 (0-0.2); Basophils % 0.7 % (0.1-2.0); Eosinophils # 0.3 K/mm3 (0.0-0.4); Eosinophils % 2.5 % (0.1-12.0); Hematocrit 32.2 % (37.0-47.0); Hemoglobin 9.6 g/dL (12.2-16.2); Lymphocytes # 1.1 K/mm3 (0.7-4.5); Lymphocytes % 10.6 % (10-50); Mean Corpuscular HGB Conc 29.7 g/dL (31.8-35.4); Mean Corpuscular Hemoglobin 30.1 pg (27.0-31.2); Mean Corpuscular Volume 101.2 fl (81-99); Mean Platelet Volume 7.3 fl (7.4-10.4); Monocytes # 0.5 K/mm3 (0.1-1.0); Monocytes % 5.3 % (1.7-9.3); Neutrophils # 8.2 K/mm3 (1.8-7.8); Neutrophils % 80.9 % (37.0-80.0); Platelet Count 456 K/mm3 (142-424); Red Blood Count 3.18 M/mm3 (4.20-5.40); Red Cell Distribution Width 15.7 % (11.5-17.5); White Blood Count 10.1 K/mm3 (4.8-10.8)
[2019-01-02 10:45] LABS: Alanine Aminotransferase 16 U/L (12-78); Albumin Level 2.6 gm/dL (3.4-5.0); Albumin/Globulin Ratio 0.6 (1.1-1.8); Alkaline Phosphatase 99 U/L (46-116); Anion Gap 15.1 mEq/L (5-15); Aspartate Amino Transferase 32 U/L (15-37); Bilirubin,Total 0.3 mg/dL (0.2-1.0); Blood Urea Nitrogen 10 mg/dL (7-18); Calcium 8.8 mg/dL (8.5-10.1); Carbon Dioxide 25 mmol/L (21.0-32.0); Chloride 103 mmol/L (98-107); Creatinine Clearance Estimated 40 mL/min (50-200); Creatinine,Serum 0.88 mg/dL (0.55-1.02); Estimated Glomerular Filt Rate 63 ml/min (>60); GFR (African American) 77 ML/MIN (>60); Globulin 4.4 gm/dl (1.3-3.2); Glucose 136 mg/dL (74-106); Potassium 4.1 mmoL/L (3.5-5.1); Sodium 139 mmol/L (136-145)
== END 2019-01-02 10:40 | disposition home or self-care (01) ==
LOC: INF 10:06
PROVIDERS: Visit Provider Internal Medicine Medical Oncology
DX: C18.9 Malignant neoplasm of colon, unspecified (principal); Z45.2 Encounter for adjustment and management of vascular access device
CPT/HCPCS: 80053; 85025; J1642

== ENCOUNTER 2019-01-07 22:12 | Inpatient (IN) ==
--- NOTE | 2019-01-07 23:49 | Emergency Department Note ---
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 Injury of hip Qualifiers: Encounter type: initial encounter Laterality: left Qualified Code(s): S79.912A - Unspecified injury of left hip, initial encounter Anemia Qualifiers: Anemia type: unspecified type Qualified Code(s): D64.9 - Anemia, unspecified UTI (urinary tract infection) Qualifiers: Urinary tract infection type: site unspecified Hematuria presence: without hematuria Qualified Code(s): N39.0 - Urinary tract infection, site not specified Sepsis Qualifiers: Sepsis type: sepsis due to unspecified organism Qualified Code(s): A41.9 - Sepsis, unspecified organism Disposition: Admitted as Observation Condition on Discharge: Fair Referrals: Kymberly Ricketts MD [Primary Care Provider] - - Critical Care Critical Care Time: No Attestation: On 01/07/19, the high probability of a clinically significant, sudden or life threatening deterioration of the following system(s) required my full and direct attention, intervention and personal management. The time I documented below is in addition to time spent performing reported procedures but includes the following listed in this critical care notation. Medical Decision Making - Medical Records Medical records reviewed: Yes: I reviewed the patient's medical records. - Geovani Inquiry Pt receiving controlled substance: No Vital Signs: 01/07/19 22:36 Temperature 99.2 F Temperature Source Oral Pulse Rate [Right Radial] 110 H Respiratory Rate 18 Blood Pressure [Right Arm] 118/71 Blood Pressure Mean [Right Arm] 86 02 Sat by Pulse Oximetry 93 L - Lab Data Lab results reviewed: Yes: I reviewed the patient's lab results. Lab Results 01/08/19 00:05: WBC 17.5 H, RBC 3.25 L, Hgb 9.5 L, Hct 32.8 L, MCV 101.0 H, MCH 29.1, MCHC 28.8 L, RDW 16.4, Plt Count 558 H, MPV 7.5, Neut % (Auto) 89.8 H, Lymph % (Auto) 5.4 L, Beckham % (Auto) 4.4, Eos % (Auto) 0.2, Baso % (Auto) 0.3, Neut # (Auto) 15.7 H, Lymph # (Auto) 0.9, Beckham # (Auto) 0.8, Eos # (Auto) 0.0, Baso # (Auto) 0.1, Total Counted 100, Neutrophils % (Manual) 83 H, Band Neutrophils % 8.0, Lymphocytes % (Manual) 6 L, Monocytes % (Manual) 2, Eosinophils % (Manual) 1, Platelet Estimate Slight increase, Polychromasia 1+, Hypochromasia 2+, Poikilocytosis 1+, Anisocytosis 1+, Macrocytosis 1+, Rouleaux 2+, ESR > 140 H 01/08/19 00:05: Sodium 135 L, Potassium 4.1, Chloride 100, Carbon Dioxide 22, Anion Gap 17.1 H, BUN 12, Creatinine 0.73, Estimated Creat Clear 42, Estimated GFR 79, Est GFR ( Amer) 95, Glucose 138 H, Calcium 8.7, Total Bilirubin 0.4, AST 44 H, ALT 22, Alkaline Phosphatase 118 H, C-Reactive Protein 8.7 H, Total Protein 7.4, Albumin 2.7 L, Globulin 4.7 H, Albumin/Globulin Ratio 0.6 L 01/08/19 03:08: Urine Color Yellow, Urine Appearance Clear, Urine pH 6.0, Ur Specific [place] 1.010, Urine Protein Negative, Urine Glucose (UA) Negative, Urine Ketones Negative, Urine Blood Negative, Urine Nitrate Positive, Urine Bilirubin Negative, Urine Urobilinogen 0.2, Ur Leukocyte Esterase Negative, Urine WBC 5-10, Ur Renal Epithelial Cell Occasional, Urine Bacteria 3+ Result diagrams: 01/08/19 00:05 01/08/19 00:05 Orders (Tests/Meds): ED MEDICATIONS Generic Name Dose Route Start Last Admin Trade Name Freq PRN Reason Stop Dose Admin Sodium Chloride 1,000 mls @ 999 mls/hr 01/08/19 00:15 01/08/19 00:13 Sod Chlor 0.9% 1000ml Bag IV 01/08/19 01:15 999 mls/hr .Q1H1M TOMER Administration Ceftriaxone Sodium 1 gm/ 50 mls @ 100 mls/hr 01/08/19 04:15 01/08/19 04:06 Sodium Chloride IV 01/22/19 04:14 100 mls/hr Q24H TOMER Administration Protocol Discontinued Medications Generic Name Dose Route Start Last Admin Trade Name Freq PRN Reason Stop Dose Admin Dexamethasone Sodium Phosphate 10 mg 01/08/19 00:23 01/08/19 00:25 Decadron 4mg/Ml 1ml Vial IV 01/08/19 00:24 10 mg ONCE ONE Administration Morphine Sulfate 2 mg 01/08/19 00:24 01/08/19 00:28 Morphine 2mg/Ml Syringe IV 01/08/19 00:25 2 mg ONCE ONE Administration Ondansetron HCl 4 mg 01/08/19 00:10 01/08/19 00:29 Zofran 4mg/2ml Vial IV 01/08/19 00:11 4 mg ONCE ONE Administration ORDERS Category Date Time Status CT cervical spine wo con Stat Cat Scan 01/07/19 22:[address] head/brain wo con Stat Cat Scan 01/07/19 22:[address] hip LT wo con Stat Cat Scan 01/08/19 00:27 Taken XR chest AP Stat Exams 01/07/19 22:48 Taken XR hip LT 2-3V w/pelvis Stat Exams 01/07/19 23:45 Taken XR pelvis 1-2V Stat Exams 01/07/19 22:48 Taken Urine Culture Stat Micro 01/08/19 03:08 Received - Radiology Data #1 Image(s): Chest, Pelvis, Hip Image Reviewed: Yes I reviewed the patient's radiology image Preliminary Findings: Abnormal (possible subcapital fx ) - CT Data CT Scan: Head, C-Spine, Other (lt hip) Time Received: 04:[address] Reviewed: Yes: I have viewed the radiologist's interpretation Preliminary Findings: Abnormal (brain mets ) - Physician Consults Physician Consulted: massiel Reason -: Admission Fall HPI - General Chief Complaint: Fall Stated Complaint: Fell 705 @1600 injured L Leg Time Seen by Provider: 01/07/19 23:00 Mode of Arrival: Wheelchair Source of Information: Patient, Relative, Medical Record Limitations: Physical Limitations Description of Symptoms (Recalled from ER Triage Doc. by RN): pt states at approx 1700 today she was making dinner and she became wobbly and fell. pt states that she is having left groin pain. pt is a cancer patient on po chemo and states that she is a "little extra" wobbly and weak today. - History of Present Illness HPI Narrative: trip type fall at home with hx of colon cancer with mets to lung and liver and is being followed by dr sage- pt with inability to ambulate - with walker complaint: fall Onset (ago): hour(s) Fall from: standing Fall witnessed: no Place fall occurred: home Loss of consciousness: none Prolonged down time: no Context: tripped/slipped Location of injury: pelvis Location of injury - extremities: Left: thigh Severity: moderate Associated symptoms (after fall): unable to walk - Related Data Home Medications Medication Instructions Recorded Confirmed Aspirin [Aspirin 81mg EC Tab] 81 mg PO HS 07/27/17 01/08/19 Mirtazapine [Remeron 15mg tablet] 15 mg PO HS 10/27/17 01/08/19 Cholecalciferol (Vitamin D3) 1,000 unit PO DAILY 12/01/17 01/08/19 [Vitamin D3 1,000 Unit Cap] Cyanocobalamin (Vitamin B-12) 1,000 mcg PO DAILY 12/01/17 01/08/19 [Vitamin B-12 1000mcg Tablet] Potassium Chloride [Micro-K 10mEq 10 meq PO TID 12/01/17 01/08/19 cap] Ramipril [Altace] 2.5 mg PO DAILY 10/31/18 01/08/19 Acetaminophen [Acetaminophen 325mg 650 mg PO Q4HP PRN 11/01/18 01/08/19 tab] Sertraline HCl [Zoloft 50mg tablet] 50 mg PO DAILY 01/08/19 01/08/19 Trifluridine/Tipiracil HCl 1 tab PO DAILY 01/08/19 01/08/19 [Lonsurf 20 mg-8.19 mg Tablet] Allergies Allergy/AdvReac Type Severity Reaction Status Date / Time No Known Allergies Allergy Verified 12/30/18 09:26 [facility] History - Hepatitis A Screen Drug use history?: No High risk sexual behaviors?: No History of sexually transmitted infection?: No Currently employed?: No Childcare worker?: No Do you have indoor plumbing?: Yes Do you have electricity?: Yes Attestation statement:: This patient has been screened for Hepatitis A risk factors. I have reviewed the patient's past medical history: Yes Medical History: Reports:: Anxiety, Asthma, Cancer (colon cancer with mets to liver and lungs), Depression, Diabetes Mellitus Type 2, Heart Murmur, Hypertension Denies:: Diabetes Mellitus Type 1, MRSA, Seizures Other Medical History: Reports: Anemia, Arthritis, Sinus Problems. Denies: Blood Transfusion Reaction Other Surgeries: Yes: Colostomy, Hysterectomy-Total, Tubal Ligation, Other Amputation: No Fractures: No - Social History Smoking Status: Former smoker Tobacco Type: cigarettes Alcohol Intake: current Alcohol Intake Frequency:: holidays/special occasions only Substance Use Type: denies use Occupational Status: retired Housing: house Household Members: family - Psychiatric History Pschychiatric History:: Reports:: Anxiety, Depression Family Hx:: Heart Attack, Cancer, Thyroid Disorder ROS Obtained: Yes All systems reviewed & no additional complaints - Constitutional Constitutional: Denies fever(s) - Eyes Eyes: Denies change in vision - ENT Ears, Nose, Mouth, and Throat: Denies sore throat - Cardiovascular Cardiovascular: Denies chest pain - Respiratory Respiratory: No cough - Gastrointestinal Gastrointestingal: Denies: abdominal pain - Genitourinary Female Genitourinary: Denies hematuria - Musculoskeletal Musculoskeletal: Reports as per HPI, Reports joint pain, Reports limited range of motion - Integumentary/Breasts Skin/Breast: Denies rash - Neurologic Neurologic: Denies seizure-like activity Physical Exam - General General appearance: alert, in no apparent distress - Head Head exam: normocephalic - Eye Eye exam: Present: PERRL, EOMI. Absent: scleral icterus, nystagmus - ENT ENT exam: Present: mucous membranes dry - Neck Neck exam: Present: trachea midline - Respiratory Respiratory exam: Absent: respiratory distress - Cardiovascular Cardiovascular exam: Present: regular rate, systolic murmur, +S4 - Abdominal Exam Abdominal exam: Present: soft, other (has colostomy) - Expanded Lower Extremity Exam Left Hip/Pelvis exam: Present: pelvis stable Upper leg exam: Present: tenderness. Absent: full ROM - Neurological Exam Neurological exam: Present: alert, oriented X3, CN II-XII intact - Psychiatric Psychiatric exam: Present: normal affect - Skin Skin exam: Absent: rash
[2019-01-08 00:25] LABS: Basophils # 0.1 K/mm3 (0-0.2); Basophils % 0.3 % (0.1-2.0); Eosinophils % 0.2 % (0.1-12.0); Hematocrit 32.8 % (37.0-47.0); Hemoglobin 9.5 g/dL (12.2-16.2); Lymphocytes # 0.9 K/mm3 (0.7-4.5); Lymphocytes % 5.4 % (10-50); Mean Corpuscular HGB Conc 28.8 g/dL (31.8-35.4); Mean Platelet Volume 7.5 fl (7.4-10.4); Monocytes # 0.8 K/mm3 (0.1-1.0); Monocytes % 4.4 % (1.7-9.3); Neutrophils # 15.7 K/mm3 (1.8-7.8); Neutrophils % 89.8 % (37.0-80.0); Platelet Count 558 K/mm3 (142-424); Red Blood Count 3.25 M/mm3 (4.20-5.40); Red Cell Distribution Width 16.4 % (11.5-17.5); White Blood Count 17.5 K/mm3 (4.8-10.8)
[2019-01-08 00:36] LABS: Anisocytosis 1+; Eosinophils % 1 % (0-3); Lymphocytes % 6 % (10-50); Macrocytosis 1+; Monocytes % 2 % (2-9); Neutrophils % 83 % (42-76); Total Cells Counted 100
[2019-01-08 00:37] LABS: Hypochromasia 2+; Polychromasia 1+; Rouleaux 2+
[2019-01-08 00:40] LABS: Albumin Level 2.7 gm/dL (3.4-5.0); Albumin/Globulin Ratio 0.6 (1.1-1.8); Anion Gap 17.1 mEq/L (5-15); Bilirubin,Total 0.4 mg/dL (0.2-1.0); C-Reactive Protein 8.7 mg/L (0.0-0.9); Calcium 8.7 mg/dL (8.5-10.1); Globulin 4.7 gm/dl (1.3-3.2); Total Protein,Serum 7.4 gm/dL (6.4-8.2)
[2019-01-08 00:59] LABS: Erythrocyte Sedimentation Rate > 140 mm/hr (0-30)
[2019-01-08 03:17] LABS: Microscopic, Urine URINE MICROSCOPIC (MICROSCOPIC)
[2019-01-08 03:20] LABS: Appearance,Urine CLEAR (Clear); Bilirubin,Urine Negative (Negative); Blood, Urine Negative (Negative); Color,Urine YELLOW (Yellow); Glucose,Urine (UA) Negative (Negative); Ketones,Urine Negative (Negative); Leukocyte Esterase,Urine Negative (Negative); Protein,Urine Negative (Negative); Urobilinogen,Urine 0.2 EU/dl (0.2)
[2019-01-08 03:23] LABS: Bacteria,Urine 3+ /lpf; Renal Epithelial Cells,Urine Occasional #/lpf (0)
--- NOTE | 2019-01-08 11:49 | History & Physical Report ---
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 (Acute) Anemia (Acute) UTI (urinary tract infection) (Acute) Sepsis (Acute) Medications: Current Medications Ceftriaxone Sodium 1 gm/ (Sodium Chloride) 50 mls @ 100 mls/hr IV Q24H TOMER; Protocol Stop: 01/22/19 03:59 Sodium Chloride (Sod Chlor 0.9% 1000ml Bag) 1,000 mls @ 100 mls/hr IV .Q10H TOMER Stop: 02/07/19 04:24 Last Admin: 01/08/19 04:50 Dose: 100 mls/hr Documented by: Morphine Sulfate (Morphine 2mg/Ml Syringe) 2 mg IV Q4HP PRN PRN Reason: Severe Pain Stop: 02/07/19 04:24 Ondansetron HCl (Zofran 4mg/2ml Vial) 4 mg IV Q8HP PRN PRN Reason: Nausea Stop: 02/07/19 04:24 Sodium Chloride (Saline Flush 10ml Syringe) 10 ml IV NEEDED PRN PRN Reason: Maintain IV Site Stop: 02/07/19 04:24
--- NOTE | 2019-01-08 11:50 | History & Physical Report ---
*Admission Date: 01/07/19 *Chief complaint: Dizziness and fall *History of present illness: Patient is a 73-year-old female who presented to our ED yesterday after having a fall while she was trying to fix her dinner. She mentioned that she felt slightly dizzy prior to the fall and fell on her left hip. She landed on the kitchen tiles. She denied having any loss of consciousness, urinary, stool incontinence, seizures during the fall. 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 Ricketts and Dr. Gupta. He does use a walker to ambulate at home. Work-up in the ED showed nondisplaced impacted left sub-capital femoral neck fracture. Dr. Hennessy was consulted. She recommended having surgery today at 1 PM. Patient had surgeries in the past with anesthesia with no problems. She did have sepsis secondary to pneumonia 2 months ago. However she denies having any URI in the past 30 days. She has been n.p.o. since yesterday. He does not have any cardiac etiology. She is a low risk for having a surgery. During the work-up in the ED her CT scan of the brain showed multiple hyperattenuated brain lesions with vasogenic edema consistent with metastatic disease. However the family does not want the patient to know about this from anyone except Dr. Ricketts and Dr. Gupta. So patient is unaware of this new brain mets. [facility] History Medical History: Reports:: Anxiety, Asthma, Cancer (colon cancer with mets to liver and lungs), Depression, Diabetes Mellitus Type 2, Heart Murmur, Hypertension Denies:: Diabetes Mellitus Type 1, MRSA, Seizures *Have you ever received a pneumonia vaccine?: Yes *Have you received a flu vaccine this season?: Yes Other Medical History: Reports: Anemia, Arthritis, Sinus Problems. Denies: Blood Transfusion Reaction Other Surgeries: Yes: Colostomy, Hysterectomy-Total, Tubal Ligation, Other Amputation: No Fractures: No - *Social History Educational Level: Completed High School Smoking Status: Former smoker Tobacco Type: cigarettes # Packs/Day (cigarettes): 1 Alcohol Intake: never Alcohol Intake Frequency:: holidays/special occasions only Substance Use Type: denies use *Occupational Status:: retired Housing: house Household Members: none *Travel in the last 8 weeks: None - Psychiatric History Expresses thoughts of harming self/others: None Suicide Plan Description: No Plan Pschychiatric History:: Reports:: Anxiety, Depression Family Hx:: Cancer, Heart Attack Review of Systems - Constitutional Reports lack of energy, Reports weakness, Denies excessive sweating - Eyes Denies blurry vision, Denies change in vision - ENT Denies bleeding gums, Denies dry mouth, Denies bad breath - *Cardiovascular Denies chest pain, Denies chest pain at rest, Denies chest pain with activity, Denies shortness of breath - *Respiratory Denies chest congestion, Denies cough, Denies shortness of breath - *Gastrointestinal Denies bloating, Denies coffee ground vomit, Denies constipation, Denies vomiting blood, Denies nausea - *Genitourinary Denies painful urination, Denies blood in urine - *Musculoskeletal Reports joint pain (Consistent with left femur fracture), Reports limited joint movement, Denies decreased muscle mass - Integumentary/Breasts Denies change in hair, Denies yellowing of the skin - *Neurologic Denies abnormal hearing, Denies seizure-like activity - Psychiatric Denies abnormal sleep pattern, Denies behavioral changes - Endocrine Denies excessive sweating, Denies rapid, pounding, or irregular heartbeat Meds Home Medications Medication Instructions Recorded Confirmed Type Aspirin [Aspirin 81mg EC Tab] 81 mg PO HS 07/27/17 01/08/19 History Mirtazapine [Remeron 15mg tablet] 15 mg PO HS 10/27/17 01/08/19 History Cholecalciferol (Vitamin D3) 1,000 unit PO DAILY 12/01/17 01/08/19 History [Vitamin D3 1,000 Unit Cap] Cyanocobalamin (Vitamin B-12) 1,000 mcg PO DAILY 12/01/17 01/08/19 History [Vitamin B-12 1000mcg Tablet] Potassium Chloride [Micro-K 10mEq 10 meq PO TID 12/01/17 01/08/19 History cap] Ramipril [Altace] 2.5 mg PO DAILY 10/31/18 01/08/19 History Acetaminophen [Acetaminophen 325mg 650 mg PO Q4HP PRN 11/01/18 01/08/19 History tab] Sertraline HCl [Zoloft 50mg tablet] 50 mg PO DAILY 01/08/19 01/08/19 History Trifluridine/Tipiracil HCl 1 tab PO DAILY 01/08/19 01/08/19 History [Lonsurf 20 mg-8.19 mg Tablet] Allergies Allergy/AdvReac Type Severity Reaction Status Date / Time No Known Allergies Allergy Verified 12/30/18 09:26 Exam Vital signs and Labs for Last 24 Hours: Temp Pulse Resp BP Pulse Ox 97.9 F 80 17 98/59 L 96 01/08/19 08:00 01/08/19 08:00 01/08/19 08:00 01/08/19 08:00 01/08/19 08:00 Laboratory Results - last 24 hr 01/08/19 00:05: WBC 17.5 H, RBC 3.25 L, Hgb 9.5 L, Hct 32.8 L, MCV 101.0 H, MCH 29.1, MCHC 28.8 L, RDW 16.4, Plt Count 558 H, MPV 7.5, Neut % (Auto) 89.8 H, Lymph % (Auto) 5.4 L, [place] % (Auto) 4.4, Eos % (Auto) 0.2, Baso % (Auto) 0.3, Neut # (Auto) 15.7 H, Lymph # (Auto) 0.9, [place] # (Auto) 0.8, Eos # (Auto) 0.0, Baso # (Auto) 0.1, Total Counted 100, Neutrophils % (Manual) 83 H, Band Neutrophils % 8.0, Lymphocytes % (Manual) 6 L, Monocytes % (Manual) 2, Eosinophils % (Manual) 1, Platelet Estimate Slight increase, Polychromasia 1+, Hypochromasia 2+, Poikilocytosis 1+, Anisocytosis 1+, Macrocytosis 1+, Rouleaux 2+, ESR > 140 H 01/08/19 00:05: Sodium 135 L, Potassium 4.1, Chloride 100, Carbon Dioxide 22, Anion Gap 17.1 H, BUN 12, Creatinine 0.73, Estimated Creat Clear 42, Estimated GFR 79, Est GFR ( Amer) 95, Glucose 138 H, Calcium 8.7, Total Bilirubin 0.4, AST 44 H, ALT 22, Alkaline Phosphatase 118 H, C-Reactive Protein 8.7 H, Total Protein 7.4, Albumin 2.7 L, Globulin 4.7 H, Albumin/Globulin Ratio 0.6 L 01/08/19 03:08: Urine Color Yellow, Urine Appearance Clear, Urine pH 6.0, Ur Specific [place] 1.010, Urine Protein Negative, Urine Glucose (UA) Negative, Urine Ketones Negative, Urine Blood Negative, Urine Nitrate Positive, Urine Bilirubin Negative, Urine Urobilinogen 0.2, Ur Leukocyte Esterase Negative, Urine WBC 5-10, Ur Renal Epithelial Cell Occasional, Urine Bacteria 3+ 01/08/19 04:10: Lactate 0.5 I & O for Last 24 hours: Intake & Output 01/05/19 01/06/19 01/07/19 01/08/19 11:59 11:59 11:59 11:59 Intake Total 140 / 140 Balance 140 / 140 Weight 110 lb 5 oz - *Routine HEENT Exam Head: Present: normocephalic Eye: Present: EOMI, PERRL ENT: Present: mucous membranes moist - *Routine Neck Exam Present: supple. Absent: lymphadenopathy - *Routine Respiratory Exam Present: CTA bilaterally - *Routine Cardiovascular Exam Present: RRR - *Routine Abdominal Exam Present: soft, normoactive bowel sounds. Absent: tenderness - *Routine Extremities Exam Comments: Unable to move her left lower extremity secondary to pain - *Routine Skin Exam Present: warm. 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 Current visit: Yes Status: Acute Category: Medical Code(s): C18.9 - Malignant neoplasm of colon, unspecified; C79.31 - Secondary malignant neoplasm of brain (4) H/O colon cancer, stage IV Current visit: Yes Status: Acute Category: Medical Code(s): Z85.038 - Personal history of other malignant neoplasm of large intestine (5) Leucocytosis Current visit: No Status: Acute Category: Medical Code(s): D72.829 - Elevated white blood cell count, unspecified (6) Muscle weakness (generalized) Current visit: No Status: Acute Category: Medical Code(s): M62.81 - Muscle weakness (generalized) - Assessment and plan all Dx Assessment and Plan for all problems:: We will decide if she needs to be continued on Decadron status post surgery. Patient is to have surgery by Dr. Hennessy at 1 PM. Date the course status post surgery and PT evaluation.
--- NOTE | 2019-01-08 16:00 | Progress Note ---
[facility] Anesthesia Checklist - Patient Identification Patient Identification: Arm Band, Verbal (Name & ) - Structural Data Admitted From: Inpatient Planned Operative Procedure/s: Left hip percutaneous pinning Consent for Planned Operative Procedure(s) Verified: Yes Verified Documents: Surgical Consent, History and Physical - NPO Status Verified Time NPO: 00:00 - Chart Verification Results Verified: CBC, BMP - Additional verifications Anesthesia Reactions: No - Airway Assessment C-Spine Mobility Assessed: Yes TMJ Mobility Assessed: Yes Dentition: Poor Dentition (Missing teeth, poor dentition) - Neurological Assessment Level of Consciousness: Awake, Alert, Appropriate, Follows Commands Hx Seizures: No Numbness or tingling in extremities: No - Anesthesia Plan Anesthesia Risk discussed: Yes Anesthesia Plan: Verified ASA Class: III (emergent) Anesthesia Type: Spinal [facility] History I have reviewed the patient's past medical history: Yes Medical History: Reports:: Anxiety, Asthma, Cancer (colon cancer with mets to liver and lungs), Depression, Gastroesophageal Reflux Disease(GERD), Heart Murmur, Hypertension Denies:: Diabetes Mellitus Type 1, MRSA, Seizures *Have you ever received a pneumonia vaccine?: Yes *Have you received a flu vaccine this season?: Yes Other Medical History: Reports: Anemia, Arthritis, Sinus Problems. Denies: Blood Transfusion Reaction Other Surgeries: Yes: Colostomy, Hysterectomy-Total, Tubal Ligation, Other Amputation: No Fractures: No - *Social History Educational Level: Completed High School Smoking Status: Former smoker Tobacco Type: cigarettes # Packs/Day (cigarettes): 1 Alcohol Intake: never Alcohol Intake Frequency:: holidays/special occasions only Substance Use Type: denies use *Occupational Status:: retired Housing: house Household Members: none *Travel in the last 8 weeks: None - Psychiatric History Expresses thoughts of harming self/others: None Suicide Plan Description: No Plan Pschychiatric History:: Reports:: Anxiety, Depression Family Hx:: Cancer, Heart Attack
--- NOTE | 2019-01-08 16:02 | Progress Note ---
[facility] Anesthesia Record Part I Intake, IV Amount: 1,600 Estimated blood loss (mL): 50 Urine output (mL): 300 Blood Products used (#): none Blood Pressure: 141/61 SaO2: 97 Pulse Rate: 85 Respiratory Rate: 16 Temperature: 97.0 F Patient is:: Awake, Stable Stable to PACU at:: 15:52
--- NOTE | 2019-01-08 16:02 | Progress Note ---
[facility] Anesthesia Record Part II Discharge Time: 16:22 Destination: Medical Surgical Department PACU nurse assessment reviewed?: Yes Patient Condition:: Good Anesthesia Complications:: None Swallowing reflex intact?: Yes Cyanosis?: No
--- NOTE | 2019-01-08 19:37 | Consult Report ---
*Admission Date: 01/07/19 *Reason for consult:: L hip fracture *History of present illness: 73yo F admitted overnight with a fracture of the L hip. She fell at home last night while fixing dinner; she felt slightly dizzy prior to the fall but denies LOC. No previous injuries to or surgeries on that hip. She has a history of metastatic colon cancer with mets to liver and lungs, followed by Dr. Gupta. Her primary care physician is Dr. Ricketts. She lives alone and ambulates with a walker. She had a recent bout with pnemonia that led to sepsis, but she appears to have fully recovered from this; denies current fevers, chest pain or shortness of breath. Workup in the ED after her fall included a CT of the head; this revealed lesions consistent with metastatic disease. She was given IV steroids in the ED and admitted; kept NPO after midnight in anticipation of surgery today. I reviewed her XR and CT and discussed the patient's injury with her and her children; her daughter at bedside and her son via telephone, as well as her granddaughter and sister at bedside. She has a non-displaced, impacted femoral neck fracture (garden I), and I recommended percutaneous screw fixation. I discussed the risks and benefits of both operative and non-operative treatment; they vocalized understanding and the patient provided informed consent. Her POA is her granddaughter Manuela. Surgery was performed this afternoon without complication; she was transferred back to the floor for ongoing post-operative care. See the operative note for full details on the procedure. Review of Systems - Review of Systems Review of systems:: pertinent systems reviewed and negative unless documented below - *Neurologic Reports weakness, Denies abnormal hearing, Denies behavioral changes, Denies seizure-like activity [facility] History I have reviewed the patient's past medical history: Yes Medical History: Reports:: Anxiety, Asthma, Cancer (colon cancer with mets to liver and lungs), Depression, Diabetes Mellitus Type 2, Gastroesophageal Reflux Disease(GERD), Heart Murmur, Hypertension Denies:: Diabetes Mellitus Type 1, MRSA, Seizures *Have you ever received a pneumonia vaccine?: Yes *Have you received a flu vaccine this season?: Yes Other Medical History: Reports: Anemia, Arthritis, Sinus Problems. Denies: Blood Transfusion Reaction Other Surgeries: Yes: Colostomy, Hysterectomy-Total, Tubal Ligation, Other Amputation: No Fractures: No - *Social History Educational Level: Completed High School Smoking Status: Former smoker Tobacco Type: cigarettes # Packs/Day (cigarettes): 1 Alcohol Intake: never Alcohol Intake Frequency:: holidays/special occasions only Substance Use Type: denies use *Occupational Status:: retired Housing: house Household Members: none *Travel in the last 8 weeks: None - Psychiatric History Expresses thoughts of harming self/others: None Suicide Plan Description: No Plan Pschychiatric History:: Reports:: Anxiety, Depression Family Hx:: Cancer, Heart Attack Meds Home Medications Medication Instructions Recorded Confirmed Type Aspirin [Aspirin 81mg EC Tab] 81 mg PO HS 07/27/17 01/08/19 History Mirtazapine [Remeron 15mg tablet] 15 mg PO HS 10/27/17 01/08/19 History Cholecalciferol (Vitamin D3) 1,000 unit PO DAILY 12/01/17 01/08/19 History [Vitamin D3 1,000 Unit Cap] Cyanocobalamin (Vitamin B-12) 1,000 mcg PO DAILY 12/01/17 01/08/19 History [Vitamin B-12 1000mcg Tablet] Potassium Chloride [Micro-K 10mEq 10 meq PO TID 12/01/17 01/08/19 History cap] Ramipril [Altace] 2.5 mg PO DAILY 10/31/18 01/08/19 History Acetaminophen [Acetaminophen 325mg 650 mg PO Q4HP PRN 11/01/18 01/08/19 History tab] Sertraline HCl [Zoloft 50mg tablet] 50 mg PO DAILY 01/08/19 01/08/19 History Trifluridine/Tipiracil HCl 1 tab PO DAILY 01/08/19 01/08/19 History [Lonsurf 20 mg-8.19 mg Tablet] Allergies Allergy/AdvReac Type Severity Reaction Status Date / Time No Known Allergies Allergy Verified 12/30/18 09:26 Exam Vital signs and Labs for Last 24 Hours: Temp Pulse Resp BP Pulse Ox 97.7 F 89 18 97/49 L 94 L 01/08/19 19:00 01/08/19 19:00 01/08/19 19:00 01/08/19 19:00 01/08/19 19:00 Laboratory Results - last 24 hr 01/08/19 00:05: WBC 17.5 H, RBC 3.25 L, Hgb 9.5 L, Hct 32.8 L, MCV 101.0 H, MCH 29.1, MCHC 28.8 L, RDW 16.4, Plt Count 558 H, MPV 7.5, Neut % (Auto) 89.8 H, Lymph % (Auto) 5.4 L, [place] % (Auto) 4.4, Eos % (Auto) 0.2, Baso % (Auto) 0.3, Neut # (Auto) 15.7 H, Lymph # (Auto) 0.9, [place] # (Auto) 0.8, Eos # (Auto) 0.0, Baso # (Auto) 0.1, Total Counted 100, Neutrophils % (Manual) 83 H, Band Neutr ophils % 8.0, Lymphocytes % (Manual) 6 L, Monocytes % (Manual) 2, Eosinophils % (Manual) 1, Platelet Estimate Slight increase, Polychromasia 1+, Hypochromasia 2+, Poikilocytosis 1+, Anisocytosis 1+, Macrocytosis 1+, Rouleaux 2+, ESR > 140 H 01/08/19 00:05: Sodium 135 L, Potassium 4.1, Chloride 100, Carbon Dioxide 22, Anion Gap 17.1 H, BUN 12, Creatinine 0.73, Estimated Creat Clear 42, Estimated GFR 79, Est GFR ( Amer) 95, Glucose 138 H, Calcium 8.7, Total Bilirubin 0.4, AST 44 H, ALT 22, Alkaline Phosphatase 118 H, C-Reactive Protein 8.7 H, Total Protein 7.4, Albumin 2.7 L, Globulin 4.7 H, Albumin/Globulin Ratio 0.6 L 01/08/19 03:08: Urine Color Yellow, Urine Appearance Clear, Urine pH 6.0, Ur Specific [place] 1.010, Urine Protein Negative, Urine Glucose (UA) Negative, Urine Ketones Negative, Urine Blood Negative, Urine Nitrate Positive, Urine Bilirubin Negative, Urine Urobilinogen 0.2, Ur Leukocyte Esterase Negative, Urine WBC 5-10, Ur Renal Epithelial Cell Occasional, Urine Bacteria 3+ 01/08/19 04:10: Lactate 0.5 I & O for Last 24 hours: Intake & Output 07/05/01/07/19 01/08/19 01/09/19 11:59 11:59 11:59 11:59 Intake Total 140 / 140 2080 / 2080 Output Total 300 / 300 Balance 140 / 140 1780 / 1780 Weight 110 lb 5 oz - Constitutional no acute distress - *Routine HEENT Exam Head: Present: normocephalic Eye: Present: EOMI ENT: Present: mucous membranes moist - *Routine Respiratory Exam Present: CTA bilaterally. Absent: accessory muscle use, wheezes - *Routine Cardiovascular Exam Present: RRR - *Routine Abdominal Exam Present: soft Comments: ostomy bag L side of abdomen - *Routine Extremities Exam Comments: IN PACU: L hip dressing c/d/i cannot move LLE due to spinal anesthetic; sensation diminished as well palpable pedal pulses LLE, foot warm/pink L calf soft, non-tender no ecchymosis, erythema L hip/LLE Results - Labs Result Diagrams: 01/08/19 00:05 01/08/19 00:05 Labs: Abnormal lab results 01/08/19 01/08/19 Range/Units 00:05 00:05 WBC 17.5 H (4.8-10.8) K/mm3 RBC 3.25 L (4.20-5.40) M/mm3 Hgb 9.5 L (12.2-16.2) g/dL Hct 32.8 L (37.0-47.0) % MCV 101.0 H (81-99) fl MCHC 28.8 L (31.8-35.4) g/dL Plt Count 558 H (142-424) K/mm3 Neut % (Auto) 89.8 H (37.0-80.0) % Lymph % (Auto) 5.4 L (10-50) % Neut # (Auto) 15.7 H (1.8-7.8) K/mm3 Neutrophils % (Manual) 83 H (42-76) % Lymphocytes % (Manual) 6 L (10-50) % ESR > 140 H (0-30) mm/hr Sodium 135 L (136-145) mmol/L Anion Gap 17.1 H (5-15) mEq/L Glucose 138 H (74-106) mg/dL AST 44 H (15-37) U/L Alkaline Phosphatase 118 H (46-116) U/L C-Reactive Protein 8.7 H (0.0-0.9) mg/L Albumin 2.7 L (3.4-5.0) gm/dL Globulin 4.7 H (1.3-3.2) gm/dl Albumin/Globulin Ratio 0.6 L (1.1-1.8) H & H 01/08/19 Range/Units 00:05 Hgb 9.5 L (12.2-16.2) g/dL Hct 32.8 L (37.0-47.0) % All other labs normal. 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 Current visit: Yes Status: Acute Category: Medical Code(s): C18.9 - Malignant neoplasm of colon, unspecified; C79.31 - Secondary malignant neoplasm of brain (4) H/O colon cancer, stage IV Current visit: Yes Status: Acute Category: Medical Code(s): Z85.038 - Personal history of other malignant neoplasm of large intestine (5) Leucocytosis Current visit: No Status: Acute Category: Medical Code(s): D72.829 - Elevated white blood cell count, unspecified (6) Muscle weakness (generalized) Current visit: No Status: Acute Category: Medical Code(s): M62.81 - Muscle weakness (generalized) - Assessment and plan all Dx Assessment and Plan for all problems:: 73yo F POD 0 s/p L hip pinning for femoral neck fx (non-displaced/impacted) -- WBAT LLE, OOB with assist -- PT/OT to eval -- ice pack L hip PRN -- SCDs BLE -- encourage IS -- pharmacologic DVT prophy per Dr. De Dios -- complete 23hr prophy antibiotics -- pain control -- dispo planning; recommend SNF for rehab, care mgmt on consult
--- NOTE | 2019-01-08 19:47 | Operative Note ---
Date of procedure: 01/08/19 Pre-op Diagnosis:: L femoral neck fracture, non-displaced/impacted (Garden I) Post-op Diagnosis:: L femoral neck fracture, non-displaced/impacted (Garden I) Procedure performed:: percutaneous pinning L hip Surgeon:: Buffy Hennessy MD Tax Evaluator(s):: RISHI Waller EDUCATIONAL SPEECH LANGUAGE CLINICIAN:: Amarjit Bolden Anesthesia: MAC, local, spinal Estimated blood loss (mL): 5 Clinical Note:: 73yo F admitted overnight with a fracture of the L hip. She fell at home last night while fixing dinner; she felt slightly dizzy prior to the fall but denies LOC. No previous injuries to or surgeries on that hip. She has a history of metastatic colon cancer with mets to liver and lungs, followed by Dr. Gupta. Her primary care physician is Dr. Ricketts. She lives alone and ambulates with a walker. She had a recent bout with pnemonia that led to sepsis, but she appears to have fully recovered from this; denies current fevers, chest pain or shortness of breath. Workup in the ED after her fall included a CT of the head; this revealed lesions consistent with metastatic disease. She was given IV steroids in the ED and admitted; kept NPO after midnight in anticipation of surgery today. I reviewed her XR and CT and discussed the patient's injury with her and her children; her daughter at bedside and her son via telephone, as well as her granddaughter and sister at bedside. She has a non-displaced, impacted femoral neck fracture (garden I), and I recommended percutaneous screw fixation. I discussed the risks and benefits of both operative and non-operative treatment; they vocalized understanding and the patient provided informed consent. Her POA is her granddaughter Maunela. Operative findings:: Shanna 6.5mm partially threaded cannulated screws x3; 85, 85, 90mm long (short threads, 20mm) Operative note:: The patient was identified in preoperative holding and the left hip signed by myself. Informed consent was verified with the patient and all questions answered. She was evaluated by anesthesia and the decision was made to perform the procedure under a spinal anesthetic with sedation. The patient was then taken to the operating room, where spinal was administered on the cart; she was then transferred to the fracture table and sedation administered. 1 g Ancef was infused intravenously, and the patient positioned on the fracture table with the left lower extremity secured in the appropriate leg dill and the right hip abducted and externally rotated out of the way of the C arm. No traction was applied to the limb but the fracture table used only to secure the leg so that the C arm could approach the hip. The left hip was then prepped and draped in the usual sterile fashion. Timeout was performed, identifying the correct patient, correct procedure, and correct site. The procedure was begun by bringing the C arm in and getting AP and lateral x- rays of the left hip. The fracture was nondisplaced and impacted, and no reduction maneuver was necessary. A guidepin was held over the exterior surface of the hip on both AP and lateral views and used to estimate my desired incision site. A small stab incision was made over the lateral aspect of the left thigh and through the underlying fascia. Hemostat was used to bluntly spread the underlying muscle down to the bone. Using AP and lateral C arm views, the guidepin was placed in the desired location, with starting point superior to the lesser trochanter and centered within the femoral neck and head on lateral view, hugging the inferior aspect of the femoral neck on the AP view. The pin was advanced until it was approximately 5 mm beneath the articular surface. A second guidepin was placed superior and anterior to this, centered within the femoral neck and head on AP view, on the anterior portion of the neck on the lateral view. The same technique was repeated with a third guidepin, paralleling the second pin so that it was centered on AP but posterior on the lateral view. This configuration formed an inverted triangle within the femoral neck. A cannulated drill bit was then used to perforate the lateral cortex of the femur and a 6.5 mm partially-threaded cannulated screw placed in each of these 3 holes. They measured 85 mm, 85 mm, and 98 mm long. Each screw had sh ort threads, 20 mm long; short threads were chosen so that they purchased the bone in the proximal fracture fragment only, creating compression at the fracture site. The patient's bone was fairly soft and the third screw was actually placed with the use of a washer. I was happy with the alignment of all screws on AP and lateral views and no screws were seen to perforate the joint surface. This concluded the procedure so the wound was closed in a layered fashion, using 0 Vicryl on the deep fascia, 2-0 Vicryl on the subcutaneous tissue and asrah on the skin. Sterile dressing was applied consisting of Xeroform, 4 x 4's and Tegaderm. The patient was then removed from the fracture table and transferred to her cart, where she was transferred to PACU in good condition. There were no complications during this case. Tourniquet time (min): 0 Condition: stable Disposition: PACU Specimens:: none Complications:: none
--- NOTE | 2019-01-09 03:54 | Sepsis Event Note ---
Tissue Perfusion Evaluation Sepsis Re-Evaluation Performed: Yes Date Performed: 01/09/19 Time Performed: 03:45 Sepsis Follow-Up: Yes: Respiratory exam, Cardiovascular exam, Capillary refill, Peripheral pulse strength, Peripheral pulse location, Skin exam, Vital Signs Most Recent Vital Signs: Temperature 98 F 01/09/19 01:30 Temperature Source Oral 01/09/19 01:30 Pulse Rate 87 01/09/19 03:00 Respiratory Rate 14 01/09/19 03:00 Blood Pressure 81/53 L 01/09/19 03:00 Blood Pressure Mean 62 01/09/19 03:00 Blood Pressure Source Automatic Cuff 01/09/19 03:00 Blood Pressure Position Supine 01/09/19 02:00 02 Sat by Pulse Oximetry 96 01/09/19 03:00 Oxygen Delivery Method 01/09/19 03:00 Oxygen Flow Rate (LPM) 2 01/09/19 03:00
[2019-01-09 06:10] LABS: Basophils % 0.2 % (0.1-2.0); Eosinophils # 0.1 K/mm3 (0.0-0.4); Eosinophils % 0.6 % (0.1-12.0); Hematocrit 29.3 % (37.0-47.0); Hemoglobin 8.2 g/dL (12.2-16.2); Lymphocytes # 1.7 K/mm3 (0.7-4.5); Lymphocytes % 11.4 % (10-50); Mean Corpuscular HGB Conc 28.1 g/dL (31.8-35.4); Mean Corpuscular Volume 102.6 fl (81-99); Mean Platelet Volume 8.1 fl (7.4-10.4); Neutrophils # 11.7 K/mm3 (1.8-7.8); Neutrophils % 80.9 % (37.0-80.0); Platelet Count 584 K/mm3 (142-424); Red Blood Count 2.85 M/mm3 (4.20-5.40); Red Cell Distribution Width 15.8 % (11.5-17.5); White Blood Count 14.5 K/mm3 (4.8-10.8)
[2019-01-09 06:26] LABS: Albumin Level 1.9 gm/dL (3.4-5.0); Albumin/Globulin Ratio 0.5 (1.1-1.8); Anion Gap 14.1 mEq/L (5-15); Bilirubin,Total 0.1 mg/dL (0.2-1.0); Globulin 3.6 gm/dl (1.3-3.2); Total Protein,Serum 5.5 gm/dL (6.4-8.2)
[2019-01-09 06:48] LABS: Calcium 7.6 mg/dL (8.5-10.1)
--- NOTE | 2019-01-09 08:42 | Progress Note ---
Internal Medicine - PN: Subj *Date: 01/09/19 *Time: 08:39 Interval history: Patient states she thinks she is doing well. She denies chest pain and shortness of breath. She is having minimal left hip pain at the site of her surgery. She vomited once after admission and her stomach has been fine since. She was able to eat breakfast. She did have a blood pressure drop and was placed on Levophed drip. Blood pressure is improved and she is being weaned from the drip. She continues with Henson catheter. Exam Vital signs and Labs for Last 24 Hours: Temp Pulse Resp BP Pulse Ox 98 F 83 20 148/84 H 97 01/09/19 04:00 01/09/19 07:00 01/09/19 07:00 01/09/19 07:00 01/09/19 07:00 Laboratory Results - last 24 hr 01/08/19 03:08: Urine Color Yellow, Urine Appearance Clear, Urine pH 6.0, Ur Specific [place] 1.010, Urine Protein Negative, Urine Glucose (UA) Negative, Urine Ketones Negative, Urine Blood Negative, Urine Nitrate Positive, Urine Bilirubin Negative, Urine Urobilinogen 0.2, Ur Leukocyte Esterase Negative, Urine WBC 5-10, Ur Renal Epithelial Cell Occasional, Urine Bacteria 3+ 01/08/19 13:40: Urine Color Yellow, Urine Appearance Clear, Urine pH 6.0, Ur Specific [place] >= 1.030, Urine Protein Trace, Urine Glucose (UA) Negative, Urine Ketones Negative, Urine Blood Negative, Urine Nitrate Negative, Urine Bilirubin Negative, Urine Urobilinogen 0.2, Ur Leukocyte Esterase Negative, Urine WBC 5-10 01/09/19 05:44: WBC 14.5 H, RBC 2.85 L, Hgb 8.2 L, Hct 29.3 L, MCV 102.6 H, MCH 28.8, MCHC 28.1 L, RDW 15.8, Plt Count 584 H, MPV 8.1, Neut % (Auto) 80.9 H, Lymph % (Auto) 11.4, [place] % (Auto) 7.0, Eos % (Auto) 0.6, Baso % (Auto) 0.2, Neut # (Auto) 11.7 H, Lymph # (Auto) 1.7, [place] # (Auto) 1.0, Eos # (Auto) 0.1, Baso # (Auto) 0.0 01/09/19 05:44: Sodium 139, Potassium 4.1, Chloride 109 H, Carbon Dioxide 20 L, Anion Gap 14.1, BUN 19 H D, Creatinine 0.68, Estimated Creat Clear 41, Estimated GFR 85, Est GFR ( Amer) 103, Glucose 114 H, Calcium 7.6 L D, Total Bilirubin 0.1 L, AST 33, ALT 13 D, Alkaline Phosphatase 87, Total Protein 5.5 L D, Albumin 1.9 L D, Globulin 3.6 H, Albumin/Globulin Ratio 0.5 L I & O for Last 24 hours: Intake & Output 01/06/19 01/07/19 01/08/19 01/09/19 11:59 11:59 11:59 11:59 Intake Total 140 / 140 4874 / 4874 Output Total 400 / 400 Balance 140 / 140 4474 / 4474 Weight 110 lb 5 oz 110 lb 5.003 oz Microbiology Reports for the Last 24 Hours: Microbiology 01/08/19 03:08 Urine,Catheterized Urine Culture - Preliminary Gram Negative Rods Gram Negative Rods#2 - Constitutional no acute distress Comments: Sitting up in the bed and has completed her breakfast. - *Routine Respiratory Exam Present: CTA bilaterally - *Routine Cardiovascular Exam Present: RRR - *Routine Abdominal Exam Present: soft, normoactive bowel sounds. Absent: tenderness, distended - *Routine Extremities Exam Absent: edema, calf tenderness Comments: Has scuds on bilateral lower extremities. 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 Current visit: Yes Status: Acute Category: Medical Code(s): C18.9 - Malignant neoplasm of colon, unspecified; C79.31 - Secondary malignant neoplasm of brain (4) H/O colon cancer, stage IV Current visit: Yes Status: Acute Category: Medical Code(s): Z85.038 - Personal history of other malignant neoplasm of large intestine (5) Leucocytosis Current visit: No Status: Acute Category: Medical Code(s): D72.829 - Elevated white blood cell count, unspecified (6) Muscle weakness (generalized) Current visit: No Status: Acute Category: Medical Code(s): M62.81 - Muscle weakness (generalized) (7) UTI (urinary tract infection) Current visit: Yes Status: Acute Category: Medical Code(s): N39.0 - Urinary tract infection, site not specified - Assessment and plan all Dx Assessment and Plan for all problems:: Patient is on antibiotic at present. Urine culture is pending. Continue with postoperative care with pulmonary hygiene. Wean from Levophed. Patient to be seen by PT and OT.
--- NOTE | 2019-01-09 13:07 | Progress Note ---
Subjective Date: 01/09/19 Time: 09:00 Principal diagnosis: s/p L hip pinning Interval history: The patient is doing well this morning, reports little pain in the L hip. Blood pressure dropped into the 80's systolic overnight, levophed drip started and is being weaned today. She denies dizziness, chest pain, shortness of breath or abdominal pain. No reported fevers. PN: Obj Ex Vital signs: Temp Pulse Resp BP Pulse Ox 98.1 F 91 H 17 111/64 95 01/09/19 12:00 01/09/19 12:00 01/09/19 12:00 01/09/19 12:00 01/09/19 12:00 - Constitutional no acute distress - Routine HEENT Exam Head: Present: normocephalic Eye: Present: EOMI ENT: Present: mucous membranes moist - Routine Respiratory Exam Present: CTA bilaterally. Absent: accessory muscle use - Routine Cardiovascular Exam Present: RRR - Routine Abdominal Exam Present: soft. 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
[2019-01-10 07:54] LABS: Basophils % 0.2 % (0.1-2.0); Eosinophils % 0.2 % (0.1-12.0); Hematocrit 29.2 % (37.0-47.0); Hemoglobin 8.4 g/dL (12.2-16.2); Lymphocytes # 0.9 K/mm3 (0.7-4.5); Lymphocytes % 7.8 % (10-50); Mean Corpuscular HGB Conc 28.7 g/dL (31.8-35.4); Mean Corpuscular Volume 101.6 fl (81-99); Mean Platelet Volume 7.4 fl (7.4-10.4); Monocytes # 0.6 K/mm3 (0.1-1.0); Monocytes % 5.6 % (1.7-9.3); Neutrophils # 9.9 K/mm3 (1.8-7.8); Neutrophils % 86.2 % (37.0-80.0); Platelet Count 417 K/mm3 (142-424); Red Blood Count 2.88 M/mm3 (4.20-5.40); Red Cell Distribution Width 15.9 % (11.5-17.5); White Blood Count 11.5 K/mm3 (4.8-10.8)
[2019-01-10 07:59] LABS: Anion Gap 12.9 mEq/L (5-15); Calcium 7.5 mg/dL (8.5-10.1)
--- NOTE | 2019-01-10 08:43 | Progress Note ---
Internal Medicine - PN: Subj *Date: 01/10/19 *Time: 08:39 Interval history: Patient feels she is doing well. She is off Levophed and blood pressure has been stable. She is been out of bed with her walker to the bathroom and has worked with physical therapy. Describes some pain in the left hip with ambulation but feels she is doing well. She is eating without difficulties. Henson catheter was removed yesterday and she is voiding QS. She denies chest pain and shortness of breath. Laboratory Tests 01/10/19 01/10/19 07:30 07:30 WBC 11.5 H RBC 2.88 L Hgb 8.4 L Hct 29.2 L MCV 101.6 H MCH 29.2 MCHC 28.7 L RDW 15.9 Plt Count 417 D Neut % (Auto) 86.2 H Lymph % (Auto) 7.8 L [place] % (Auto) 5.6 Sodium 141 Potassium 3.9 Chloride 110 H Carbon Dioxide 22 Anion Gap 12.9 BUN 14 D Creatinine 0.63 Estimated Creat Clear 42 Estimated GFR 93 Est GFR ( Amer) 113 Glucose 120 H Calcium 7.5 L Exam Vital signs and Labs for Last 24 Hours: Temp Pulse Resp BP Pulse Ox 98.4 F 86 18 108/59 L 95 01/10/19 08:00 01/10/19 08:00 01/10/19 08:00 01/10/19 08:00 01/10/19 08:00 Laboratory Results - last 24 hr 01/10/19 07:30: WBC 11.5 H, RBC 2.88 L, Hgb 8.4 L, Hct 29.2 L, MCV 101.6 H, MCH 29.2, MCHC 28.7 L, RDW 15.9, Plt Count 417 D, MPV 7.4, Neut % (Auto) 86.2 H, Lymph % (Auto) 7.8 L, [place] % (Auto) 5.6, Eos % (Auto) 0.2, Baso % (Auto) 0.2, Neut # (Auto) 9.9 H, Lymph # (Auto) 0.9, [place] # (Auto) 0.6, Eos # (Auto) 0.0, Baso # (Auto) 0.0 01/10/19 07:30: Sodium 141, Potassium 3.9, Chloride 110 H, Carbon Dioxide 22, Anion Gap 12.9, BUN 14 D, Creatinine 0.63, Estimated Creat Clear 42, Estimated GFR 93, Est GFR ( Amer) 113, Glucose 120 H, Calcium 7.5 L I & O for Last 24 hours: Intake & Output 01/07/19 01/08/19 01/09/19 01/10/19 11:59 11:59 11:59 11:59 Intake Total 140 / 140 4874 / 4874 720 / 720 Output Total 400 / 400 Balance 140 / 140 4474 / 4474 720 / 720 Weight 110 lb 5 oz 110 lb 5.003 oz 113 lb 5.003 oz Microbiology Reports for the Last 24 Hours: Microbiology 01/08/19 04:10 Blood Blood Culture - Preliminary NO GROWTH AFTER 48 HOURS 01/08/19 04:10 Blood Blood Culture - Preliminary NO GROWTH AFTER 48 HOURS 01/08/19 03:08 Urine,Catheterized Urine Culture - Preliminary Gram Negative Rods Gram Negative Rods#2 - Constitutional no acute distress, thin Comments: Sitting up in the bed eating her breakfast. Appears comfortable. Smiles with conversation. - *Routine Respiratory Exam Comments: Few scattered rhonchi - *Routine Cardiovascular Exam Present: RRR - *Routine Abdominal Exam Present: soft, normoactive bowel sounds. Absent: tenderness - *Routine Extremities Exam Absent: edema Comments: Scattered on right lower leg. Moves all extremities. 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 Current visit: Yes Status: Acute Category: Medical Code(s): C18.9 - Malignant neoplasm of colon, unspecified; C79.31 - Secondary malignant neoplasm of brain (4) H/O colon cancer, stage IV Current visit: Yes Status: Acute Category: Medical Code(s): Z85.038 - Personal history of other malignant neoplasm of large intestine (5) Leucocytosis Current visit: No Status: Acute Category: Medical Code(s): D72.829 - Elevated white blood cell count, unspecified (6) Muscle weakness (generalized) Current visit: No Status: Acute Category: Medical Code(s): M62.81 - Muscle weakness (generalized) (7) UTI (urinary tract infection) Current visit: Yes Status: Acute Category: Medical Code(s): N39.0 - Urinary tract infection, site not specified (8) Anemia Current visit: Yes Status: Acute Category: Medical Code(s): D64.9 - Anemia, unspecified - Assessment and plan all Dx Assessment and Plan for all problems:: Will saline lock her IV. To continue with physical therapy. Monitor H&H.
[2019-01-10 10:40] LABS: Lymphocytes % 13 % (10-50); Macrocytosis 1+; Monocytes % 2 % (2-9); Neutrophils % 85 % (42-76); Total Cells Counted 100
--- NOTE | 2019-01-10 13:33 | Progress Note ---
Subjective Date: 01/10/19 Time: 12:15 Principal diagnosis: s/p L hip pinning Interval history: Patient is status post cannulated screw fixation LEFT hip post op day # 2. She is sitting out on a chair and appears comfortable. She says she is doing well and reports no pain or discomfort at the movement. No history of any fevers, chills or rigors. No history of any nausea, vomiting, chest pain or SOB. PN: Obj Ex Vital signs: Temp Pulse Resp BP Pulse Ox 97.2 F L 94 H 17 129/68 96 01/10/19 11:43 01/10/19 11:43 01/10/19 11:43 01/10/19 11:43 01/10/19 11:43 Narrative: Laboratory Results - last 24 hr 01/10/19 07:30: WBC 11.5 H, RBC 2.88 L, Hgb 8.4 L, Hct 29.2 L, MCV 101.6 H, MCH 29.2, MCHC 28.7 L, RDW 15.9, Plt Count 417 D, MPV 7.4, Neut % (Auto) 86.2 H, Lymph % (Auto) 7.8 L, [place] % (Auto) 5.6, Eos % (Auto) 0.2, Baso % (Auto) 0.2, Neut # (Auto) 9.9 H, Lymph # (Auto) 0.9, [place] # (Auto) 0.6, Eos # (Auto) 0.0, Baso # (Auto) 0.0, Total Counted 100, Neutrophils % (Manual) 85 H, Lymphocytes % (Manual) 13, Monocytes % (Manual) 2, Platelet Estimate Normal, Macrocytosis 1+ 01/10/19 07:30: Sodium 141, Potassium 3.9, Chloride 110 H, Carbon Dioxide 22, Anion Gap 12.9, BUN 14 D, Creatinine 0.63, Estimated Creat Clear 42, Estimated GFR 93, Est GFR ( Amer) 113, Glucose 120 H, Calcium 7.5 L Exam General appearance: Alert, awake, no acute distress Cardiovascular: regular rate & rhythm Respiratory: no respiratory distress, speaking full sentences ABD: soft and nontender Neuro: Alert and oriented x3 On examination of her LEFT lower extremity, the dressings over the LEFT hip are clean, dry and intact. No strikethrough or discharge noted. Distal pulses 1+ bilaterally. Sensation is intact light touch throughout. Actively moving the foot and ankle. Thigh and calf are soft and nontender. 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 She can continue mobilization with the help of physical therapist weightbearing on the LEFT side as tolerated. Continue PT/OT, pain management with as needed pain medication. Continue DVT prophylaxis as per PCP. Continue medical management as per Dr. Ricketts.
--- NOTE | 2019-01-11 08:34 | Progress Note ---
Internal Medicine - PN: Subj *Date: 01/11/19 *Time: 08:30 Interval history: Patient states she had a good day yesterday. She walked around the room with her walker with PT. Her left hip hurts with this but pain medicine is effective. She is eating without problems. Her bowels continue to move her colostomy. She has been voiding QS and denies dysuria. She did sleep some last night. Urine culture reveals Klebsiella pneumonia resistant to cephalosporins. Exam Vital signs and Labs for Last 24 Hours: Temp Pulse Resp BP Pulse Ox 98.0 F 90 17 127/73 94 L 01/11/19 08:00 01/11/19 08:00 01/11/19 08:00 01/11/19 08:00 01/11/19 08:00 Laboratory Results - last 24 hr 01/10/19 07:30: Total Counted 100, Neutrophils % (Manual) 85 H, Lymphocytes % (Manual) 13, Monocytes % (Manual) 2, Platelet Estimate Normal, Macrocytosis 1+ I & O for Last 24 hours: Intake & Output 01/08/19 01/09/19 01/10/19 01/11/19 11:59 11:59 11:59 11:59 Intake Total 140 / 140 4874 / 4874 720 / 720 1080 / 1080 Output Total 400 / 400 Balance 140 / 140 4474 / 4474 720 / 720 1080 / 1080 Weight 110 lb 5 oz 110 lb 5.003 oz 113 lb 5.003 oz 113 lb 4 oz Microbiology Reports for the Last 24 Hours: Microbiology 01/08/19 03:08 Urine,Catheterized Urine Culture - Final Klebsiella pneumoniae Klebsiella pneumoniae#2 01/08/19 04:10 Blood Blood Culture - Preliminary NO GROWTH AFTER 48 HOURS 01/08/19 04:10 Blood Blood Culture - Preliminary NO GROWTH AFTER 48 HOURS - Constitutional no acute distress - *Routine Respiratory Exam Comments: Bibasilar crackles - *Routine Cardiovascular Exam Present: RRR - *Routine Abdominal Exam Present: soft, normoactive bowel sounds. 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 Current visit: Yes Status: Acute Category: Medical Code(s): C18.9 - Malignant neoplasm of colon, unspecified; C79.31 - Secondary malignant neoplasm of brain (4) H/O colon cancer, stage IV Current visit: Yes Status: Acute Category: Medical Code(s): Z85.038 - Personal history of other malignant neoplasm of large intestine (5) Leucocytosis Current visit: No Status: Acute Category: Medical Code(s): D72.829 - Elevated white blood cell count, unspecified (6) Muscle weakness (generalized) Current visit: No Status: Acute Category: Medical Code(s): M62.81 - Muscle weakness (generalized) (7) UTI (urinary tract infection) Current visit: Yes Status: Acute Category: Medical Code(s): N39.0 - Urinary tract infection, site not specified (8) Anemia Current visit: Yes Status: Acute Category: Medical Code(s): D64.9 - Anemia, unspecified (9) Klebsiella pneumoniae infection Current visit: Yes Status: Acute Category: Medical Code(s): B96.1 - Klebsiella pneumoniae [K. pneumoniae] as the cause of diseases classified elsewhere - Assessment and plan all Dx Assessment and Plan for all problems:: IV antibiotic changed to Levaquin for ESBL positive Klebsiella pneumoniae UTI. CBC is pending
[2019-01-11 08:59] LABS: Basophils % 0.1 % (0.1-2.0); Eosinophils % 0.3 % (0.1-12.0); Lymphocytes # 1.4 K/mm3 (0.7-4.5); Lymphocytes % 9.6 % (10-50); Mean Corpuscular HGB Conc 28.9 g/dL (31.8-35.4); Mean Corpuscular Volume 100.1 fl (81-99); Mean Platelet Volume 7.8 fl (7.4-10.4); Monocytes # 0.6 K/mm3 (0.1-1.0); Neutrophils # 12.2 K/mm3 (1.8-7.8); Neutrophils % 85.9 % (37.0-80.0); Platelet Count 524 K/mm3 (142-424); Red Blood Count 3.09 M/mm3 (4.20-5.40); Red Cell Distribution Width 16.1 % (11.5-17.5); White Blood Count 14.2 K/mm3 (4.8-10.8)
[2019-01-11 09:47] LABS: Lymphocytes % 8 % (10-50); Monocytes % 2 % (2-9); Neutrophils % 90 % (42-76); Total Cells Counted 100
[2019-01-11 09:48] LABS: Anisocytosis 1+; Hypochromasia 2+; Macrocytosis 1+
--- NOTE | 2019-01-11 14:07 | Progress Note ---
Subjective Date: 01/11/19 Time: 13:00 Principal diagnosis: s/p L hip pinning Interval history: Patient is status post cannulated screw fixation LEFT hip post op day # 3. She is sitting out on a chair and appears comfortable. She says she is doing well and reports no pain or discomfort at the movement. No history of any fevers, chills or rigors. No history of any nausea, vomiting, chest pain or SOB. PN: Obj Ex Vital signs: Temp Pulse Resp BP Pulse Ox 98.0 F 94 H 18 115/63 96 01/11/19 12:00 01/11/19 12:00 01/11/19 12:00 01/11/19 12:00 01/11/19 12:00 Narrative: Laboratory Results - last 24 hr 01/11/19 08:50: WBC 14.2 H, RBC 3.09 L, Hgb 9.0 L, Hct 31.0 L, MCV 100.1 H, MCH 29.0, MCHC 28.9 L, RDW 16.1, Plt Count 524 H D, MPV 7.8, Neut % (Auto) 85.9 H, Lymph % (Auto) 9.6 L, [place] % (Auto) 4.0, Eos % (Auto) 0.3, Baso % (Auto) 0.1, Neut # (Auto) 12.2 H, Lymph # (Auto) 1.4, [place] # (Auto) 0.6, Eos # (Auto) 0.0, Baso # (Auto) 0.0, Total Counted 100, Neutrophils % (Manual) 90 H, Lymphocytes % (Manual) 8 L, Monocytes % (Manual) 2, Platelet Estimate Moderate increase, Hyp ochromasia 2+, Anisocytosis 1+, Macrocytosis 1+ Exam General appearance: Alert, awake, no acute distress Cardiovascular: regular rate & rhythm Respiratory: no respiratory distress, speaking full sentences ABD: soft and nontender Neuro: Alert and oriented x3 On examination of her LEFT lower extremity, the dressings over the LEFT hip are clean, dry and intact. No strikethrough or discharge noted. I have changed the dressings and the incision looks clean and healthy. No discharge, erythema or signs of infection noted. Distal pulses 1+ bilaterally. Sensation is intact light touch throughout. Actively moving the foot and ankle. Thigh and calf are soft and nontender. 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 She is doing well and progressing appropriately. I have changed the dressings today and the surgical incision looks clean and healthy. She can continue mobilization with the help of physical therapist weightbearing on the LEFT side as tolerated. Continue PT/OT, pain management with as needed pain medication. Continue DVT prophylaxis as per PCP. Continue medical management as per Dr. Ricketts.
--- NOTE | 2019-01-12 08:26 | Progress Note ---
Internal Medicine - PN: Subj *Date: 01/12/19 *Time: 08:23 Interval history: Patient states she does feel better this morning her pain is controlled with pain medication. She slept decently well throughout the night and try to eat some breakfast this morning. Exam Vital signs and Labs for Last 24 Hours: Temp Pulse Resp BP Pulse Ox 98.1 F 92 H 16 114/65 96 01/12/19 08:00 01/12/19 08:00 01/12/19 08:00 01/12/19 08:00 01/12/19 08:00 Laboratory Results - last 24 hr 01/11/19 08:50: WBC 14.2 H, RBC 3.09 L, Hgb 9.0 L, Hct 31.0 L, MCV 100.1 H, MCH 29.0, MCHC 28.9 L, RDW 16.1, Plt Count 524 H D, MPV 7.8, Neut % (Auto) 85.9 H, Lymph % (Auto) 9.6 L, [place] % (Auto) 4.0, Eos % (Auto) 0.3, Baso % (Auto) 0.1, Neut # (Auto) 12.2 H, Lymph # (Auto) 1.4, [place] # (Auto) 0.6, Eos # (Auto) 0.0, Baso # (Auto) 0.0, Total Counted 100, Neutrophils % (Manual) 90 H, Lymphocytes % (Manual) 8 L, Monocytes % (Manual) 2, Platelet Estimate Moderate increase, Hypochromasia 2+, Anisocytosis 1+, Macrocytosis 1+ I & O for Last 24 hours: Intake & Output 01/09/19 01/10/19 01/11/19 01/12/19 11:59 11:59 11:59 11:59 Intake Total 4874 / 4874 720 / 720 1080 / 1180 1240 / 1240 Output Total 400 / 400 Balance 4474 / 4474 720 / 720 1080 / 1180 1240 / 1240 Weight 110 lb 5.003 oz 113 lb 5.003 oz 113 lb 4 oz 132 lb - Constitutional no acute distress - *Routine Respiratory Exam Present: CTA bilaterally - *Routine Cardiovascular Exam Present: RRR - *Routine Abdominal Exam Present: soft, normoactive bowel sounds. Absent: tenderness - *Routine Extremities Exam Absent: cyanosis, clubbing, edema - *Routine Skin Exam Present: warm. 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 Current visit: Yes Status: Acute Category: Medical Code(s): C18.9 - Malignant neoplasm of colon, unspecified; C79.31 - Secondary malignant neoplasm of brain (4) H/O colon cancer, stage IV Current visit: Yes Status: Acute Category: Medical Code(s): Z85.038 - Personal history of other malignant neoplasm of large intestine (5) Leucocytosis Current visit: No Status: Acute Category: Medical Code(s): D72.829 - Elevated white blood cell count, unspecified (6) Muscle weakness (generalized) Current visit: No Status: Acute Category: Medical Code(s): M62.81 - Muscle weakness (generalized) (7) UTI (urinary tract infection) Current visit: Yes Status: Acute Category: Medical Code(s): N39.0 - Urinary tract infection, site not specified (8) Anemia Current visit: Yes Status: Acute Category: Medical Code(s): D64.9 - Anemia, unspecified (9) Klebsiella pneumoniae infection Current visit: Yes Status: Acute Category: Medical Code(s): B96.1 - Klebsiella pneumoniae [K. pneumoniae] as the cause of diseases classified elsewhere - Assessment and plan all Dx Assessment and Plan for all problems:: We will continue antibiotics for UTI. Ortho is following patient status post left hip pinning. She is working well with physical therapy. Care management has stated that disposition is a problem as she will not [facility]. Will discuss further care with Dr. Ricketts.
--- NOTE | 2019-01-12 11:44 | Pharmacy Consult Notes ---
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 (Acute) Anemia (Acute) UTI (urinary tract infection) (Acute) Sepsis (Acute) Subcapital fracture of left femur (Acute) Cerebral edema (Acute) UTI (urinary tract infection) (Acute) Anemia (Acute) Klebsiella pneumoniae infection (Acute) - VTE Risk Labs: VTE Related Lab Results Hgb 9.0 g/dL (12.2-16.2) L 01/11/19 08:50 Hct 31.0 % (37.0-47.0) L 01/11/19 08:50 Plt Count 524 K/mm3 (142-424) H D 01/11/19 08:50 BUN 14 mg/dL (7-18) D 01/10/19 07:30 Creatinine 0.63 mg/dL (0.55-1.02) 01/10/19 07:30 Estimated Creat Clear 42 mL/min (50-200) 01/10/19 07:30 - Prophylaxis VTE Prophylaxis Ordered?: Yes Types of VTE Prophylaxis: TEDS Knee High Location of Applied Device: Bilateral Lower Extremeties - VTE Diagnosis Confirmed Treatment or plan recommended: Continue Current Treatment
--- NOTE | 2019-01-12 16:56 | Consult Report ---
*Admission Date: 01/08/19 *History of present illness: 73 yo wf with metastatic colon cancer to liver, lung and now to brain. she fell last week and fractured her hip. w/up in ed included ct of head demonstrating metastatic disease to the brain with vasogenic edema. she has had surgery for her hip. she is now contemplating rehab vs home. she is eating well this am. she reports she has been feeling dizzy and "wobbly" and "just fell". prior we had planned 3rd line chemo using oral medication lonsurf. her son and family are at her bedside today. [facility] History Medical History: Reports:: Anxiety, Asthma, Cancer (colon cancer with mets to liver and lungs), Depression, Diabetes Mellitus Type 2, Gastroesophageal Reflux Disease(GERD), Heart Murmur, Hypertension Denies:: Diabetes Mellitus Type 1, MRSA, Seizures *Have you ever received a pneumonia vaccine?: Yes *Have you received a flu vaccine this season?: Yes Other Medical History: Reports: Anemia, Arthritis, Sinus Problems. Denies: Blood Transfusion Reaction Other Surgeries: Yes: Colostomy, Hysterectomy-Total, Tubal Ligation, Other Amputation: No Fractures: No - *Social History Educational Level: Completed High School Smoking Status: Former smoker Tobacco Type: cigarettes # Packs/Day (cigarettes): 1 Alcohol Intake: never Alcohol Intake Frequency:: holidays/special occasions only Substance Use Type: denies use *Occupational Status:: retired Housing: house Household Members: none *Travel in the last 8 weeks: None - Psychiatric History Expresses thoughts of harming self/others: None Suicide Plan Description: No Plan Pschychiatric History:: Reports:: Anxiety, Depression Family Hx:: Cancer, Heart Attack Review of Systems - *Musculoskeletal Reports abnormal walking - *Neurologic Reports abnormal walking, Reports dizziness, Reports weakness, Denies abnormal hearing, Denies behavioral changes, Denies seizure-like activity Meds Home Medications Medication Instructions Recorded Confirmed Type Aspirin [Aspirin 81mg EC Tab] 81 mg PO HS 07/27/17 01/08/19 History Mirtazapine [Remeron 15mg tablet] 15 mg PO HS 10/27/17 01/08/19 History Cholecalciferol (Vitamin D3) 1,000 unit PO DAILY 12/01/17 01/08/19 History [Vitamin D3 1,000 Unit Cap] Cyanocobalamin (Vitamin B-12) 1,000 mcg PO DAILY 12/01/17 01/08/19 History [Vitamin B-12 1000mcg Tablet] Potassium Chloride [Micro-K 10mEq 10 meq PO TID 12/01/17 01/08/19 History cap] Ramipril [Altace] 2.5 mg PO DAILY 10/31/18 01/08/19 History Acetaminophen [Acetaminophen 325mg 650 mg PO Q4HP PRN 11/01/18 01/08/19 History tab] Sertraline HCl [Zoloft 50mg tablet] 50 mg PO DAILY 01/08/19 01/08/19 History Allergies Allergy/AdvReac Type Severity Reaction Status Date / Time No Known Allergies Allergy Verified 12/30/18 09:26 Exam Vital signs and Labs for Last 24 Hours: Temp Pulse Resp BP Pulse Ox 98.7 F 94 H 17 118/65 97 01/12/19 15:29 01/12/19 15:29 01/12/19 15:29 01/12/19 15:29 01/12/19 15:29 I & O for Last 24 hours: Intake & Output 01/10/19 01/11/19 01/12/19 01/13/19 11:59 11:59 11:59 11:59 Intake Total 720 / 720 1180 / 1280 1240 / 1240 360 / 360 Balance 720 / 720 1180 / 1280 1240 / 1240 360 / 360 Weight 113 lb 5.003 oz 113 lb 4 oz 132 lb - *Routine Extremities Exam Absent: cyanosis, clubbing, edema Internal Medicine - CN: Reslt - Labs CBC & Chem 7: 01/11/19 08:50 01/10/19 07:30 Assessment and Plan (1) Subcapital fracture of left femur Current visit: Yes Status: Acute Category: Medical Code(s): S72.012A - Unspecified intracapsular fracture of left femur, initial encounter for closed fracture (2) Cerebral edema Current visit: Yes Status: Acute Category: Medical Code(s): G93.6 - Cerebral edema (3) 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 Current visit: Yes Status: Acute Category: Medical Code(s): C18.9 - Malignant neoplasm of colon, unspecified; C79.31 - Secondary malignant neoplasm of brain (4) H/O colon cancer, stage IV Current visit: Yes Status: Acute Category: Medical Code(s): Z85.038 - Personal history of other malignant neoplasm of large intestine (5) Leucocytosis Current visit: No Status: Acute Category: Medical Code(s): D72.829 - Elevated white blood cell count, unspecified (6) Muscle weakness (generalized) Current visit: No Status: Acute Category: Medical Code(s): M62.81 - Muscle weakness (generalized) (7) UTI (urinary tract infection) Current visit: Yes Status: Acute Category: Medical Code(s): N39.0 - Urinary tract infection, site not specified (8) Anemia Current visit: Yes Status: Acute Category: Medical Code(s): D64.9 - Anemia, unspecified (9) Klebsiella pneumoniae infection Current visit: Yes Status: Acute Category: Medical Code(s): B96.1 - Kle bsiella pneumoniae [K. pneumoniae] as the cause of diseases classified elsewhere - Assessment and plan all Dx Assessment and Plan for all problems:: long discussion iwth pt and family. pt with metastatic colon cancer and new dx of brain mets. we discussed treatment options for brain mets including wbxrt, steroids. we discussed potential side effects of wbxrt and the need to travel daily to [place] for at least 10 days. she is not interested in pursing radiation to brain. I do think she would benefit from steroids to help decrease the edema of brain and have ordered decadron 4 mg bid po to continue indefinitely. we then discussed that she is not a candidate for lonsurf as previously planned due to new fracture and difficulty with wound healing and increasing weakness. we also discussed consideration for hospice and to focus on comfort. she is agreeable to meet with hospice for more information and family was also agreeable. she is still very interested in rehab and eventually returning home with the support of hospice. I think this is reasonable. please call with questions. Johana Gupta MD
--- NOTE | 2019-01-13 08:18 | Progress Note ---
<Katlyn Hemphill - Last Filed: 01/13/19 08:16> Internal Medicine - PN: Subj *Date: 01/13/19 *Time: 08:16 Interval history: Dr. Gupta did discuss the patient's advanced cancer with her yesterday. The patient states she did work well with therapy yesterday and was able to sit up in a chair and walk back to the bed. She has minimal pain in her leg. According to her nurse, her family is discussing taking her home with hospice at this time. Exam Vital signs and Labs for Last 24 Hours: Temp Pulse Resp BP Pulse Ox 97.9 F 86 18 129/73 94 L 01/13/19 04:18 01/13/19 04:18 01/13/19 04:18 01/13/19 04:18 01/13/19 04:18 I & O for Last 24 hours: Intake & Output 01/10/19 01/11/19 01/12/19 01/13/19 11:59 11:59 11:59 11:59 Intake Total 720 / 720 1180 / 1280 1240 / 1240 960 / 960 Balance 720 / 720 1180 / 1280 1240 / 1240 960 / 960 Weight 113 lb 5.003 oz 113 lb 4 oz 132 lb 130 lb 8 oz Microbiology Reports for the Last 24 Hours: Microbiology 01/08/19 04:10 Blood Blood Culture - Final NO GROWTH AFTER 5 DAYS 01/08/19 04:10 Blood Blood Culture - Final NO GROWTH AFTER 5 DAYS - Constitutional no acute distress - *Routine Respiratory Exam Present: CTA bilaterally - *Routine Cardiovascular Exam Present: RRR - *Routine Abdominal Exam Present: soft, normoactive bowel sounds. 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 Status: Acute Category: Medical Code(s): C18.9 - Malignant neoplasm of colon, unspecified; C79.31 - Secondary malignant neoplasm of brain (4) H/O colon cancer, stage IV Status: Acute Category: Medical Code(s): Z85.038 - Personal history of other malignant neoplasm of large intestine (5) Leucocytosis Status: Acute Category: Medical Code(s): D72.829 - Elevated white blood cell count, unspecified (6) Muscle weakness (generalized) Status: Acute Category: Medical Code(s): M62.81 - Muscle weakness (generalized) (7) UTI (urinary tract infection) Status: Acute Category: Medical Code(s): N39.0 - Urinary tract infection, site not specified (8) Anemia Status: Acute Category: Medical Code(s): D64.9 - Anemia, unspecified (9) Klebsiella pneumoniae infection Status: Acute Category: Medical Code(s): B96.1 - Klebsiella pneumoniae [K. pneumoniae] as the cause of diseases classified elsewhere - Assessment and plan all Dx Assessment and Plan for all problems:: Dr. Klein to see today and Dr. Ricketts's absence. Care management still working with this position. Will discuss further care with Dr. Klein. <Stanislaw Klein - Last Filed: 01/13/19 13:26> Internal Medicine - PN: Subj *Date: 01/13/19 *Time: 13:23 Exam Vital signs and Labs for Last 24 Hours: Temp Pulse Resp BP Pulse Ox 98.7 F 97 H 18 113/67 95 01/13/19 08:27 01/13/19 08:27 01/13/19 08:27 01/13/19 08:27 01/13/19 08:27 I & O for Last 24 hours: Intake & Output 01/11/19 01/12/19 01/13/19 01/14/19 11:59 11:59 11:59 11:59 Intake Total 1180 / 1280 1240 / 1240 960 / 960 Balance 1180 / 1280 1240 / 1240 960 / 960 Weight 113 lb 4 oz 132 lb 130 lb 8 oz Microbiology Reports for the Last 24 Hours: Microbiology 01/08/19 04:10 Blood Blood Culture - Final NO GROWTH AFTER 5 DAYS 01/08/19 04:10 Blood Blood Culture - Final NO GROWTH AFTER 5 DAYS Assessment and Plan (1) Subcapital fracture of left femur Status: Acute Category: Medical Code(s): S72.012A - Unspecified intracapsular fracture of left femur, initial encounter for closed fracture (2) Cerebral edema Status: Acute Category: Medical Code(s): G93.6 - Cerebral edema (3) 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 Status: Acute Category: Medical Code(s): C18.9 - Malignant neoplasm of colon, unspecified; C79.31 - Secondary malignant neoplasm of brain (4) H/O colon cancer, stage IV Status: Acute Category: Medical Code(s): Z85.038 - Personal history of other malignant neoplasm of large intestine (5) Leucocytosis Status: Acute Category: Medical Code(s): D72.829 - Elevated white blood cell count, unspecified (6) Muscle weakness (generalized) Status: Acute Category: Medical Code(s): M62.81 - Muscle weakness (generalized) (7) UTI (urinary tract infection) Status: Acute Category: Medical Code(s): N39.0 - Urinary tract infection, site not specified (8) Anemia Status: Acute Category: Medical Code(s): D64.9 - Anemia, unspecified (9) Klebsiella pneumoniae infection Status: Acute Category: Medical Code(s): B96.1 - Klebsiella pneumoniae [K. pneumoniae] as the cause of diseases classified elsewhere - Assessment and plan all Dx Assessment and Plan for all problems:: Patient seen and examined this AM. Oncology consult noted and appreciated. She has elected no further treatment. She would like to pursue some additional rehab from her hip surgery. Care management is working on disposition plans with patient and family. Possible discharge later today. Will continue on steroids per oncology recommendations.
--- NOTE | 2019-01-13 11:29 | Discharge Summary ---
General - General Admission date:: 01/08/19 <Stanislaw Klein - 01/17/19 20:02> 01/08/19 <JobyKatlyn - 01/13/19 11:32> Discharge date: 01/13/19 <JobyKatlyn - 01/13/19 11:32> HPI HPI: Patient is a 73-year-old female who presented to our ED yesterday after having a fall while she was trying to fix her dinner. She mentioned that she felt slightly dizzy prior to the fall and fell on her left hip. She landed on the kitchen tiles. She denied having any loss of consciousness, urinary, stool incontinence, seizures during the fall. 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 Ricketts and Dr. Gupta. She does use a walker to ambulate at home. Work-up in the ED showed a nondisplaced impacted left sub-capital femoral neck fracture. Dr. Hennessy was consulted. She recommended having surgery. Patient had surgeries in the past with anesthesia with no problems. She did have sepsis secondary to pneumonia 2 months ago, however she denies having any URI in the past 30 days. She has been n.p.o. She does not have any cardiac etiology. She is a low risk for having a surgery. During the work-up in the ED her CT scan of the brain showed multiple hyperattenuated brain lesions with vasogenic edema consistent with metastatic disease, however the family does not want the patient to know about this from anyone except Dr. Ricketts or Dr. Gupta, so patient is unaware of these new brain mets. <Katlyn Hemphill - 01/13/19 11:32> Hospital Course Hospital Course: Dr. Fabian performed a percutaneous left hip pinning on 01/08/2019. The patient tolerated the procedure well. Dr. Fabian felt she could be weightbearing as tolerated to the left lower extremity and out of bed with assistance. She consulted PT and OT for evaluation. The patient was able to eat and work with physical therapy. She did have a blood pressure drop after her surgery and was placed on a Levophed drip. The blood pressure improved and she was weaned off of the drip. Her blood pressure remained stable. The patient was able to get up and walk around her room with a walker and the help of physical therapy. She did have a urine culture which returned positive for Klebsiella pneumoniae and it was resistant to cephalosporins. She was therefore started on Levaquin for ESBL positive Klebsiella pneumoniae UTI. Dr. Villa did see the patient in Dr. Fabian's absence and changed her dressing. He felt the surgical incision looked clean and healthy and that she could continue to mobilize with the help of physical therapy. Dr. Gupta also saw the patient in consultation. She informed the patient of the new diagnosis of brain metastasis. The patient was not interested in pursuing radiation to the brain but Dr. Gupta did feel she would benefit from steroids to help decrease the edema of the brain and ordered Decadron 4 mg twice daily to continue indefinitely. The patient did agree to meet with hospice for more information and her family was agreeable as well. She was however, very interested in rehab and eventually returning home with the support of hospice. A bed was found for the patient at [facility] and she is stable to be discharged today for continued rehab for her hip. The patient will need to follow-up on an outpatient basis with Dr. Fabian and will be discharged on Levaquin for her UTI, continued Decadron, and pain medication. <Katlyn Hemphill - 01/13/19 11:32> Objective Vital signs: Temp Pulse Resp BP Pulse Ox 98.7 F 97 H 18 113/67 95 01/13/19 08:27 01/13/19 08:27 01/13/19 08:27 01/13/19 08:27 01/13/19 08:27 <Stanislaw Klein - 01/17/19 20:02> Temp Pulse Resp BP Pulse Ox 98.7 F 97 H 18 113/67 95 01/13/19 08:27 01/13/19 08:27 01/13/19 08:27 01/13/19 08:27 01/13/19 08:27 <Katlyn Hemphill - 01/13/19 11:32> Narrative: - Constitutional no acute distress - *Routine Respiratory Exam Present: CTA bilaterally - *Routine Cardiovascular Exam Present: RRR - *Routine Abdominal Exam Present: soft, normoactive bowel sounds. 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 Status: Acute (4) H/O colon cancer, stage IV Status: Acute (5) Leucocytosis Status: Acute (6) Muscle weakness (generalized) Status: Acute (7) UTI (urinary tract infection) Status: Acute (8) Anemia Status: Acute (9) Klebsiella pneumoniae infection Status: Acute <Katlyn Hemphill - 01/13/19 11:20> (1) Subcapital fracture of left femur Status: Acute (2) Cerebral edema Status: Acute (3) 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 Status: Acute (4) H/O colon cancer, stage IV Status: Acute (5) Leucocytosis Status: Acute (6) Muscle weakness (generalized) Status: Acute (7) UTI (urinary tract infection) Status: Acute (8) Anemia Status: Acute (9) Klebsiella pneumoniae infection Status: Acute <Stanislaw Klein - 01/17/19 20:02> Discharge Plan - Patient Discharge Instructions ACTIVITY: Ambulate as tolerated <Katlyn Hemphill 01/13/19 11:32> DIET: continue same diet <Katlyn Hemphill 01/13/19 11:32> Patient Instructions: Cancer Pain Syndromes, DI for Brain Tumor and Brain Cancer, DI for Colorectal Cancer, DI for Liver Cancer, DI for Lung Cancer, DI for Urinary Tract Infection (UTI), DI for Open Reduction Internal Fixation Surgery, DI for Surgical Site Infection, DI for Sepsis -- Adult <Stanislaw Klein - 01/17/19 20:02> Forms: <Stanislaw Klein - 01/17/19 20:02> - Follow up Plan Follow up with: Buffy Hennessy MD [Physician] - 01/23/19 9:15 am <Stanislaw Klein - 01/17/19 20:02> Disposition: [facility] <Stanislaw Klein - 01/17/19 20:02> Home Medications: Home Medications Medication Instructions Recorded Confirmed Type Aspirin [Aspirin 81mg EC Tab] 81 mg PO HS 07/27/17 01/08/19 History Mirtazapine [Remeron 15mg tablet] 15 mg PO HS 10/27/17 01/08/19 History Cholecalciferol (Vitamin D3) 1,000 unit PO DAILY 12/01/17 01/08/19 History [Vitamin D3 1,000 Unit Cap] Cyanocobalamin (Vitamin B-12) 1,000 mcg PO DAILY 12/01/17 01/08/19 History [Vitamin B-12 1000mcg Tablet] Potassium Chloride [Micro-K 10mEq 10 meq PO TID 12/01/17 01/08/19 History cap] Ramipril [Altace] 2.5 mg PO DAILY 10/31/18 01/08/19 History Acetaminophen [Acetaminophen 325mg 650 mg PO Q4HP PRN 11/01/18 01/08/19 History tab] Oxycodone HCl/Acetaminophen 1 each PO Q6HP PRN #30 tab 01/13/19 Rx [Percocet 5/325mg tablet] dexAMETHasone [Decadron 4mg tablet] 4 mg PO BID #60 tab 01/13/19 Rx levoFLOXacin [Levaquin 500mg 500 mg PO DAILY #7 tab 01/13/19 Rx tab] <Stanislaw Klein - 01/17/19 20:02> Prescriptions/Medication Reconciliation: New dexAMETHasone [Decadron 4mg tablet] 4 mg PO BID #60 tab levoFLOXacin [Levaquin 500mg tab] 500 mg PO DAILY #7 tab Oxycodone HCl/Acetaminophen [Percocet 5/325mg tablet] 1 each PO Q6HP PRN #30 tab PRN Reason: Mild To Moderate Pain Continued Aspirin [Aspirin 81mg EC Tab] 81 mg PO HS Mirtazapine [Remeron 15mg tablet] 15 mg PO HS Acetaminophen [Acetaminophen 325mg tab] 650 mg PO Q4HP PRN PRN Reason: As Needed For Fever Or Pain Potassium Chloride [Micro-K 10mEq cap] 10 meq PO TID Cyanocobalamin (Vitamin B-12) [Vitamin B-12 1000mcg Tablet] 1,000 mcg PO DAILY Cholecalciferol (Vitamin D3) [Vitamin D3 1,000 Unit Cap] 1,000 unit PO DAILY Ramipril [Altace] 2.5 mg PO DAILY Discontinued Sertraline HCl [Zoloft 50mg tablet] 50 mg PO DAILY <Stanislaw Klein - 01/17/19 20:02> - Additional Information Additional Information: Concur with plan for discharge as outlined above. <Stanislaw Klein - 01/17/19 20:02>
== END 2019-01-13 13:21 | DRG 480 ==
LOC: ER 22:12 → 2ND 22:12
PROVIDERS: ADMIT Emergency Medicine; ATTEND Family Medicine
CPT/HCPCS: 36415; 70450; 71010; 71045; 72125; 72170; 73502; 73700; 76000; 80048; 80053; 81001; 83605; 85007; 85025; 85651; 86140; 87040; 87086; 87088; 87186; 96365; 96367; 96375; 97110; 97116; 97161; 97166; 97530; 97535; 99284; C1713; J1956; J2405; J7060

== ENCOUNTER → 2019-01-23 08:40 | Outpatient (CLI) | payer MEDICARE, BC, SELFPAY ==
--- NOTE | 2019-01-23 08:47 | XR_ITS ---
XR hip LT 2-3V w/pelvis HISTORY: ITS.REASON: s/p lt hip sx ORDERING PHYSICIAN: Buffy Hennessy MD PATIENT AGE: 73 years COMPARISON: 01/07/2019. FINDINGS: There has been placement of 2 fixation screws traversing the left proximal femur at the intertrochanteric area and the distal tips of the screws are just proximal to the femoral head cortex. The alignment at the left hip appears to be normal. The degree of impaction of the femoral neck at the subcapital area of the proximal left femur is stable. The alignment is unchanged. There are surgical skin sarah. IMPRESSION: Postoperative findings because of impacted left proximal femoral subcapital fracture. There is no new acute fracture or acute process.
--- NOTE | 2019-01-23 10:01 | XR_ITS ---
XR ankle LT min 3V HISTORY: ITS.REASON: ankle pain ORDERING PHYSICIAN: Buffy Hennessy MD PATIENT AGE: 73 years Comparison: None FINDINGS: No fracture or dislocation. No lytic or blastic change. There is normal mineralization.. The joint spaces are well-preserved. No significant degenerative/arthritic changes. No erosive changes evident. There is moderate prominence of the medial lateral soft tissues. There is a 5 mm plantar calcaneal spur. IMPRESSION: No acute osseous process. Diffuse soft tissue edema. Plantar small calcaneal spur.
== END ==
PROVIDERS: PCP Family Medicine; Visit Provider Orthopaedic Surgery
DX: M25.552 Pain in left hip (principal); M25.572 Pain in left ankle and joints of left foot
CPT/HCPCS: 73502; 73610